=== PATIENT | male | born 1955 | race Caucasian/White ===

== ENCOUNTER → 2016-04-12 | Day surgery (SDC) | payer MEDICAID, MEDICARE ==
--- NOTE | 2016-04-11 13:48 | MH ---
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 He had an open surgery performed at that time and the lesion has recurred. OTHER PAST HISTORY Reveals he had an ablation for atrial fibrillation approximately 5 years ago. He has a history of a heart murmur and history of high blood pressure. MEDICINES Aspirin 325 daily, atenolol 25 mg daily. ALLERGIES He has no known allergies. FAMILY HISTORY His father of a heart attack, mother is living and well. SOCIAL HISTORY He does not use tobacco. He drinks 2-3 glasses of red wine nightly. He sleeps 5-6 hours per night. Does not use drugs. He did not state an occupation. REVIEW OF SYSTEMS HEAD: He reports occasional headaches. No history of dizziness, injury or seizure disorders. EYES: He wears corrective lenses for reading. No double vision, tearing or blind spots. The right eye has an early cataract. NOSE: No history of bleeding, obstruction or discharges. MOUTH: The patient has a mild degree of swelling in the area of the cyst, upper right. THROAT: No history of hoarseness, soreness or thyroid disease, lymph nodes or local general glandular enlargement. RESPIRATORY: No history of tuberculosis, shortness of breath, cough, asthma, COPD or sleep apnea. CARDIOVASCULAR: No history of precordial pain. He has a history of hypertension. He does report a history of a murmur and no shortness of breath on exertion, edema, phlebitis, rheumatic fever, heart surgery ablation 5 years ago for atrial fibrillation. GASTROINTESTINAL: No gallbladder disease, peptic ulcer disease. GENITOURINARY: No urinary tract infections, kidney disease, venereal disease. MUSCULOSKELETAL: No pain, limitation of movement or weakness. ENDOCRINE: No history of diabetes, hormone therapy, growth abnormality. HEMATOLOGICAL: No history of anemia, bleeding tendencies, Rh incompatibility. NEUROLOGICAL: No sensory or motor disturbances, although he has been informed of the possibility of having some trigeminal nerve sensory disturbance after the surgery. PHYSICAL EXAMINATION GENERAL: Reveals an alert, oriented male. VITAL SIGNS: He is 6 feet, 2 inches and weighs 185 pounds. His blood pressure is 136/76, pulse of 71 and regular. His O2 sat on room air is 97%. HEAD: Head is normocephalic. There are no masses noted. EYES: EOMs intact, although early cataract on the right. EARS: TMs intact. MOUTH: Noted swelling in the right maxillary region. The cyst is seen best on CT scan. Throat and tongue elevate normally. NECK: His neck is soft. There are no masses, no lymphadenopathy noted. HEART: Regular sinus rhythm. The heart murmur was not readily appreciated. Peripheral pulses are full and equal throughout. ABDOMEN: Abdomen is soft, no masses or organomegaly present. Bowel sounds are present and peripheral pulses are full and equal throughout. EXTREMITIES: Deep tendon reflexes are symmetric and physiologic. Cranial nerves II-XII intact. Deep tendon reflexes are symmetric. ASSESSMENT The patient is informed of the need for removal of the cyst before it goes into the nose or the sinus and it is very close to these two structures. The patient understands the treatment plan. TARIQ Shaw /12:55 PM /1:25 PM
[~2016-04-12] VITALS: Ht 188 cm; Wt 84.0 kg
[~2016-04-12] MED LIST: ANTICOAGULANT CITRATE DEXTROSE SOLN-A 1L OTHER ONE; ASPI-110 PO; ATEN50TA PO; DEXAMETHASONE SOD PHOS 4 MG/ML VIAL ONE; DO NOT ADM ANY ANTICOAGULANT DRUGS XX PRN; GLYCOPYRROLATE 0.2 MG/ML VIAL IV ONE; GLYCOPYRROLATE 0.2 MG/ML VIAL ONE; INSULIN HUMAN REGULAR 1,000 UNITS/10 ML VIAL SQ PRN; LACTATED RINGER'S 1000 ML IV SCH; LIDOCAINE 2%/EPINEPHrine 1:100,000 30ML MDV OTHER ONE; LORATADINE 10 MG TAB PO SCH; METOPROLOL TARTRATE 25 MG TAB PO PRN; MIDAZOLAM HCL 2 MG/2 ML VIAL ONE; PANT40TA3 PO; PROPOFOL 200 MG/20 ML AMP IV ONE; SODIUM CHLORID 0.9% 500 ML IV SCH; THIA100T PO; THROMBIN (TOPICAL) 5,000 UNIT VIAL OTHER ONE; ceFAZolin 1,000 MG/NS 100 ML IV SCH; ePHEDrine/NS 50 MG/5 ML SYR IV ONE; fentaNYL CITRATE 250 MCG/5 ML AMP ONE
[2016-04-12 12:04] LABS: BASOPHIL # 0.1 TH/MM3 (0-0.2); BASOPHIL % 1.3 % (0.0-2.0); EOSINOPHIL # 0.1 TH/MM3 (0-0.4); EOSINOPHIL % 1.9 % (0.0-4.0); HEMATOCRIT 45.8 % (39.0-51.0); HEMO FLAGS DIFF FINAL; LYMPH % 30.7 % (9.0-44.0); LYMPHOCYTE # 1.2 TH/MM3 (1.0-4.8); MEAN CELL VOLUME 97.4 FL (80.0-100.0); MEAN CORPUSCULAR HEMOGLOBIN 34.1 PG (27.0-34.0); MONO % 16.5 % (0.0-8.0); NEUT % 49.6 % (16.0-70.0); PLATELET COUNT 226 TH/MM3 (150-450); RED CELL DISTRIBUTION WIDTH 13.4 % (11.6-17.2)
[2016-04-12 12:05] VITALS: BP 122/71; PULSE 65; RESP 18; TEMP 98.6; O2SAT 97
[2016-04-12 12:10] LABS: APTT (PATIENT) 27.5 SEC (24.3-30.1); PROTHROMBIN TIME - PATIENT 10.7 SEC (9.8-11.6)
[2016-04-12 12:13] LABS: ALT (GPT) 34 U/L (12-78); ANION GAP 6 MEQ/L (5-15); AST (GOT) 30 U/L (15-37); BICARBONATE 29.9 MEQ/L (21.0-32.0); BLOOD UREA NITROGEN 11 MG/DL (7-18); CHLORIDE 104 MEQ/L (98-107); GLOMERULAR FILTRATION RATE 97 ML/MIN (>89); POTASSIUM 4.1 MEQ/L (3.5-5.1); SODIUM (NA) 140 MEQ/L (136-145)
[2016-04-12 12:16] LABS: ALKALINE PHOSPHATASE 53 U/L (45-117); TOTAL BILIRUBIN ADULT 0.4 MG/DL (0.2-1.0)
--- NOTE | 2016-04-12 12:25 | RADRPT ---
EXAM DATE/TIME: 04/12/2016 11:45 [facility] COMPARISON: CHEST SINGLE AP, February 18, 2015, 10:27. INDICATIONS : Evaluate for pneumonia, pneumothorax and communicable diseases. Pre-op jaw surgery MEDICAL HISTORY : None. SURGICAL HISTORY : Eblation ENCOUNTER: Initial ACUITY: 1 day PAIN SCORE: 0/10 LOCATION: chest FINDINGS: Portable AP view of the chest demonstrates a normal-sized cardiac silhouette. No effusion, consolidat ion, or pneumothorax is visualized. Vertically oriented opacity in the right lower lung zone may repr esent parenchymal scar or atelectasis. The bones and soft tissues demonstrate no acute abnormality. CONCLUSION: No acute cardiopulmonary abnormality is identified. Todd Lr MD on April 12, 2016 at 12:23 Board Certified Radiologist. This report was verified electronically.
[2016-04-12 12:53] LABS: BACTERIA, URINE RARE /hpf; BLOOD, URINE NEG (NEG); COMMENT (UR) CULT NOT INDICATED; CULTURE IF INDICATED CULT NOT INDICATED; GLUCOSE,URINE NEG (NEG); KETONE, URINE NEG (NEG); MUCUS URINE FEW /lpf (OCC); NITRITE,URINE NEG (NEG); PH, URINE 7.5 (5.0-8.5); URINE COLOR YELLOW (YELLW/STRAW)
--- NOTE | 2016-04-12 12:57 | EKG ---
Date Performed: 04/12/2016 Time Performed: 11:49:38 PTAGE: 61 years EKG: SINUS BRADYCARDIA BORDERLINE ECG COMPARED TO PRIOR ELECTROCARDIOGRAM, Prior electrocardiogr am has artifact but Sinus rhythm appears to have replaced atrial fibrillation. PREVIOUS TRACING : 02/20/2015 17.12 DOCTOR: Ramirez Padilla Interpretating Date/Time 04/12/2016 12:56:41
[2016-04-12 17:20] VITALS: BP 130/72; PULSE 72; RESP 18; TEMP 97.6; O2SAT 99
--- NOTE | 2016-04-17 15:52 | MP ---
cc: ANALISA WALKER DDS DATE OF SURGERY: 04/12/2016 PREOPERATIVE DIAGNOSIS Glandular odontogenic cyst of the maxilla. POSTOPERATIVE DIAGNOSIS Glandular odontogenic cyst of the maxilla. OPERATIVE PROCEDURE PERFORMED Excision of glandular odontogenic cyst of the maxilla, reconstruction of the cystic cavity with PRP, BMP, corticocancellous bone and plain collagen. OPERATIVE PROCEDURE The patient was brought to the operating room and placed upon the operating table in supine position. The patient was anesthetized intravenously and intubated with ease via the oral route. A throat pack was placed and approximately 8 cc of 1% Xylocaine, 100,000 epinephrine was infiltrated in the buccal vestibule of the right maxilla. Following this a full-thickness mucoperiosteal incision was made from slightly left of the central incisor all the way back to the second molar at the mucogingival junction on the right-hand side of the maxilla. The periosteal flap was reflected. The biopsy site was identified and a bur on a drill was used to open a window in the lateral wall of the maxilla. There were two discrete cystic areas identified, one in the area of 6, 7 and 8 teeth, and also in the area of 3, 4 and 5 teeth. Once the window was opened the cystic area was identified and removed with the use of a and a curette as well as an acrylic bur on a rotary drill. It is of note that the two discrete areas of cystic cavity once the cyst was removed, communicated with one another. The cavity went from second molar on the right all the way up to tooth #8. The bone overlying the nasal cavity had been compromised as well. Once all the cystic cavity was removed, BMP was placed in the floor of the cystic cavity followed by corticocancellous bone mixed with PRP and Bio-Oss. Intermittently more BMP was added to the bone graft, and finally the cavity was filled with five one ounce bottles of bone. Tooth #4 and 7 were removed prior to the placement of bone graft in order to remove all the cystic remnants in the extraction site. Once this was completed the incision line was closed with running 3-0 chromic suture. The throat pack was removed and the patient was taken to the recovery room in good condition. TARIQ Shaw /3:25 PM /3:36 PM
== END | disposition home or self-care (01) ==
LOC: HSDC 10:58
PROVIDERS: ATTEND Dentist Oral and Maxillofacial Surgery
DX: K09.0 Developmental odontogenic cysts (principal); I48.91 Unspecified atrial fibrillation
CPT/HCPCS: 00190; 21040; 41899; 71010; 80053; 81001; 85025; 85610; 85730; 88300; 88305; 88311; 93005; C1713; J0690; J1100; J2250; J3010; J7120

== ENCOUNTER 2017-06-16 11:45 | Inpatient (IN) | payer MEDICARE ==
[2017-06-16] VITALS (7 sets, daily range): BP systolic 107–137; BP diastolic 55–86; PULSE 85–130; RESP 14–18; TEMP 97.5–98.9; O2SAT 94–98
[~2017-06-16] VITALS: Ht 188 cm; Wt 83.6 kg
[~2017-06-16 11:45] MED LIST changes: -ANTICOAGULANT CITRATE DEXTROSE SOLN-A 1L OTHER ONE; -ASPI-110 PO; +ASPI1TAB57 PO; -DEXAMETHASONE SOD PHOS 4 MG/ML VIAL ONE; -DO NOT ADM ANY ANTICOAGULANT DRUGS XX PRN; -GLYCOPYRROLATE 0.2 MG/ML VIAL IV ONE; -GLYCOPYRROLATE 0.2 MG/ML VIAL ONE; -INSULIN HUMAN REGULAR 1,000 UNITS/10 ML VIAL SQ PRN; -LACTATED RINGER'S 1000 ML IV SCH; -LIDOCAINE 2%/EPINEPHrine 1:100,000 30ML MDV OTHER ONE; -LORATADINE 10 MG TAB PO SCH; -METOPROLOL TARTRATE 25 MG TAB PO PRN; -MIDAZOLAM HCL 2 MG/2 ML VIAL ONE; -PANT40TA3 PO; -PROPOFOL 200 MG/20 ML AMP IV ONE; -SODIUM CHLORID 0.9% 500 ML IV SCH; -THIA100T PO; -THROMBIN (TOPICAL) 5,000 UNIT VIAL OTHER ONE; -ceFAZolin 1,000 MG/NS 100 ML IV SCH; -ePHEDrine/NS 50 MG/5 ML SYR IV ONE; -fentaNYL CITRATE 250 MCG/5 ML AMP ONE
[2017-06-16] MEDS ORDERED: SODIUM CHLOR 0.9% 1000 ML INJ 1,000 ML IV ONE ×2 (11:57→13:45)
[2017-06-16] MEDS ORDERED: SODIUM CHLORIDE 0.9% FLUSH 10 ML FLUSH IVF PRN (12:00)
--- NOTE | 2017-06-16 12:10 | PD ---
HPI Chief Complaint: Syncope/Near-Syncope Time Seen by Provider: 11:56 Travel History International Travel<30 days: No Contact w/Intl Traveler<30days: No Traveled to known affect area: No History of Present Illness HPI Patient is a 62-year-old male presenting to the emergency department for evaluation after witnessed syncopal episode. Patient was walking home from the grocery store and bystanders witnessed him staggering he subsequently fell in the call 911. When EMS arrived on scene patient was diaphoretic and had a second syncopal episode that they witnessed. Patient was in A. fib with RVR with a rate in the 160s, EMS administered 20 mg of Cardizem IV, his rate trended down, it stayed between 76 up to 110. Patient states he felt dizzy prior to the episode but denied any chest pain, shortness of breath, headache. He currently denies any chest pain, shortness of breath, abdominal pain, nausea , vomiting. He does admit to drinking 6-7 shots of alcohol daily. Patient states that he did drink this morning, he cannot recall how much he has had to drink. He states he has a history of atrial fibrillation, he had an ablation 4 years ago. He has not followed up with cardiology recently. He is followed by Dr. Weems for primary care. Patient reports that he felt fine prior to this episode. Symptom onset was sudden, symptom severity is severe, there are no alleviating factors, symptoms possibly exacerbated by EtOH. Patient is unsure if he took atenolol and aspirin this morning. Patient reported that he falls frequently, he states he fell and hit his head yesterday. He is uncertain if he blacked out. He currently denies any pain. PFSH Past Medical History Atrial Fibrillation: Yes Endocrine: No Genitourinary: No Hepatitis: No Hiatal Hernia: No Immune Disorder: No Musculoskeletal: No Neurologic: No Psychiatric: No Respiratory: No Thyroid Disease: No Tetanus Vaccination: Unknown Influenza Vaccination: No Past Surgical History Cardiac Surgery: Yes (HEART ABLATION) Social History Alcohol Use: Yes (6 - 7 SHOTS PER DAY) Tobacco Use: No Substance Use: No Allergies-Medications (Allergen,Severity, Reaction): Coded Allergies: No Known Allergies (Unverified Adverse Reaction, Unknown, 06/16/17) Reported Meds & Prescriptions Reported Meds & Active Scripts Active Reported Aspirin 81 (Aspirin) 81 Mg Tabdr 81 Mg PO DAILY Atenolol 50 Mg Tab 50 Mg PO DAILY Review of Systems ROS Limitations: Intoxication Except as stated in HPI: all other systems reviewed are Neg HENT: No: Headaches Cardiovascular: No: Chest Pain or Discomfort Respiratory: No: Shortness of Breath Gastrointestinal: No: Nausea, Abdominal Pain Neurologic: Positive: Dizziness, Syncope, Coordination Problem, No: Focal Abnormalities Psychiatric: Positive: Substance Abuse, No: Depression, Suicidal Ideations Physical Exam Narrative GENERAL: Thin, well-developed, alert, male. Presenting in no acute distress. SKIN: Warm and dry. Healing abrasions to his knees. Superficial abrasion to left tricep. HEAD: Atraumatic. Normocephalic. EYES: Pupils equal and round. No scleral icterus. No injection or drainage. ENT: No nasal bleeding or discharge. Mucous membranes pink and moist. NECK: Trachea midline. No JVD. CARDIOVASCULAR: Irregularly irregular, tachycardic RESPIRATORY: No accessory muscle use. Clear to auscultation. Breath sounds equal bilaterally. GASTROINTESTINAL: Abdomen soft, non-tender, nondistended. Hepatic and splenic margins not palpable. MUSCULOSKELETAL: Extremities without clubbing, cyanosis, or edema. No obvious deformities. NEUROLOGICAL: Awake and alert. No obvious cranial nerve deficits. Motor grossly within normal limits. Five out of 5 muscle strength in the arms and legs. Normal speech. PSYCHIATRIC: Appropriate mood and affect; insight and judgment normal. Data Data Last Documented VS Vital Signs Date Time Temp Pulse Resp B/P (MAP) Pulse Ox O2 Delivery O2 Flow Rate FiO2 06/16/17 14:05 85 14 107/65 (79) 95 Room Air 06/16/17 11:50 98.9 Orders Orders Electrocardiogram (06/16/17 11:57) Complete Blood Count With Diff (06/16/17 11:57) Comprehensive Metabolic Panel (06/16/17 11:57) Magnesium (Mg) (06/16/17 11:57) B-Type Natriuretic Peptide (06/16/17 11:57) Ckmb (Isoenzyme) Profile (06/16/17 11:57) Troponin I (06/16/17 11:57) Act Partial Throm Time (Ptt) (06/16/17 11:57) Prothrombin Time / Inr (Pt) (06/16/17 11:57) Urinalysis - C+S If Indicated (06/16/17 11:57) Chest, Single Ap (06/16/17 11:57) Ct Brain W/O Iv Contrast(Rout) (06/16/17 11:57) Ecg Monitoring (06/16/17 11:57) Iv Access Insert/Monitor (06/16/17 11:57) Oximetry (06/16/17 11:57) Sodium Chloride 0.9% Flush (Ns Flush) (06/16/17 12:00) Sodium Chlor 0.9% 1000 Ml Inj (Ns 1000 M (06/16/17 11:57) Alcohol (Ethanol) (06/16/17 11:57) Thyroid Stimulating Hormone (06/16/17 11:57) Free Thyroxine (T4) (06/16/17 11:57) Diltiazem Inj (Cardizem Inj) (06/16/17 12:15) Lorazepam Inj (Ativan Inj) (06/16/17 13:15) Ondansetron Inj (Zofran Inj) (06/16/17 13:15) CKMB (06/16/17 12:12) CKMB% (06/16/17 12:12) Sodium Chlor 0.9% 1000 Ml Inj (Ns 1000 M (06/16/17 13:45) Admit Order (Ed Use Only) (06/16/17 14:27) Labs Laboratory Tests Test 06/16/17 12:12 06/16/17 13:30 Blood Urea Nitrogen 16 MG/DL Creatinine 1.13 MG/DL Random Glucose 112 MG/DL Total Protein 8.3 GM/DL Albumin 4.5 GM/DL Calcium Level 8.8 MG/DL Magnesium Level 2.1 MG/DL Alkaline Phosphatase 79 U/L Aspartate Amino Transf (AST/SGOT) 216 U/L Alanine Aminotransferase (ALT/SGPT) 112 U/L Total Bilirubin 1.3 MG/DL Sodium Level 137 MEQ/L Potassium Level 3.7 MEQ/L Chloride Level 98 MEQ/L Carbon Dioxide Level 24.6 MEQ/L Anion Gap 14 MEQ/L Estimat Glomerular Filtration Rate 66 ML/MIN Total Creatine Kinase 779 U/L Creatine Kinase MB 3.9 NG/ML Creatine Kinase MB % 0.5 % Troponin I LESS THAN 0.02 NG/ML B-Type Natriuretic Peptide 21 PG/ML Free Thyroxine 0.99 NG/DL Thyroid Stimulating Hormone 3rd Gen 3.760 uIU/ML Ethyl Alcohol Level 317 MG/DL White Blood Count 4.6 TH/MM3 Red Blood Count 4.12 MIL/MM3 Hemoglobin 14.4 GM/DL Hematocrit 42.0 % Mean Corpuscular Volume 101.8 FL Mean Corpuscular Hemoglobin 34.8 PG Mean Corpuscular Hemoglobin Concent 34.2 % Red Cell Distribution Width 14.4 % Platelet Count 81 TH/MM3 Mean Platelet Volume 8.4 FL Neutrophils (%) (Auto) 76.1 % Lymphocytes (%) (Auto) 9.1 % Monocytes (%) (Auto) 13.6 % Eosinophils (%) (Auto) 0.0 % Basophils (%) (Auto) 1.2 % Neutrophils # (Auto) 3.5 TH/MM3 Lymphocytes # (Auto) 0.4 TH/MM3 Monocytes # (Auto) 0.6 TH/MM3 Eosinophils # (Auto) 0.0 TH/MM3 Basophils # (Auto) 0.1 TH/MM3 CBC Comment AUTO DIFF Differential Comment AUTO DIFF CONFIRMED Platelet Estimate LOW Platelet Morphology Comment NORMAL Ovalocytes 1+ Prothrombin Time 10.3 SEC Prothromb Time International Ratio 1.0 RATIO Activated Partial Thromboplast Time 23.6 SEC MDM Medical Decision Making Medical Screen Exam Complete: Yes Emergency Medical Condition: Yes Interpretation(s) Vital Signs Date Time Temp Pulse Resp B/P (MAP) Pulse Ox O2 Delivery O2 Flow Rate FiO2 06/16/17 11:50 98.9 109 16 125/85 (98) 97 Differential Diagnosis Cardiac arrhythmia versus metabolic abnormality versus contusion versus hemorrhage versus thyroid abnormality versus EtOH abuse versus other Narrative Course Patient is well-appearing 62-year-old male presenting to emergency department after witnessed syncopal episode. Patient's vital signs are stable, his heart rate ranges between 108 to 122 currently. Labs and imaging ordered and pending. A second dose of Cardizem [address] scan of the brain was ordered secondary to patient's report of fall yesterday with head injury, CT shows 1 cm hypodensity in the central yue which may be an old lacunar infarct. This could be further is characterized with MRI if clinically indicated. The supratentorial brain is symmetric and unremarkable. There is no evidence of hemorrhage. Nothing to suggest acute infarct per the radiologist. 1300 -patient reassessed, he was exhibiting tremors, reported nausea and stated he felt as if he was withdrawing. Ativan and Zofran ordered. RN notified. CBC with a platelet count of 81 Chemistry with mild transaminitis, CK 779, TSH and free T4 unremarkable, BNP is 21. Alcohol level is 317 Patient is received a total of 2 L of IV fluids in the emergency department. He was reassessed after administration of Ativan and is resting comfortably. Patient will be admitted for syncope, EtOH abuse, A. fib with RVR. Discussed with residents who accepted admission for Dr. Ortez. Admit orders placed. Diagnosis Primary Impression: Atrial fibrillation with RVR Additional Impressions: Alcohol abuse Thrombocytopenia Transaminitis Admitting Information Admitting Physician Requests: Admit Condition: Stable Samia Ac Jun 16, 2017 12:10
[2017-06-16] MEDS ORDERED: DILTIAZEM HCL 25 MG/5 ML VIAL IV ONE (12:15)
--- NOTE | 2017-06-16 12:38 | RADRPT ---
EXAM DATE/TIME: 06/16/2017 12:18 [facility] COMPARISON: CT BRAIN W/O CONTRAST, February 16, 2015, 7:48. INDICATIONS : Syncopal episode today. RADIATION DOSE: 38.25 CTDIvol (mGy) MEDICAL HISTORY : AFIB SURGICAL HISTORY : Cardiac Ablation ENCOUNTER: Initial ACUITY: 1 day PAIN SCALE: 0/10 LOCATION: cranial TECHNIQUE: Multiple contiguous axial images were obtained of the head. Using automated exposure control and adj ustment of the mA and/or kV according to patient size, radiation dose was kept as low as reasonably a chievable to obtain optimal diagnostic quality images. DICOM format image data is available electro nically for review and comparison. FINDINGS: There is a CSF density centrally within the yue which may be encephalomalacia associated with old la cunar infarct. It has a fairly benign appearance without surrounding signal abnormality or definite m ass effect. The supratentorial brain is symmetric and unremarkable. There is no evidence of hemorrhage. As nothin g to suggest acute infarction. CONCLUSION: 1 cm hypodensity in the central yue which may be an old lacunar infarct. This could be further characterized with MRI if clinically indicated.. Todd Verde MD on June 16, 2017 at 12:32 Board Certified Radiologist. This report was verified electronically.
--- NOTE | 2017-06-16 13:07 | RADRPT ---
EXAM DATE/TIME: 06/16/2017 12:43 [facility] COMPARISON: CHEST SINGLE AP, April 12, 2016, 11:45. INDICATIONS : Syncope, short of breath. MEDICAL HISTORY : Myocardial infarction. SURGICAL HISTORY : Coronary artery stent. ENCOUNTER: Initial ACUITY: 1 day PAIN SCORE: 5/10 LOCATION: Bilateral chest FINDINGS: A single view of the chest demonstrates the lungs to be symmetrically aerated without evidence of mas s, infiltrate or effusion. Mild scarring is again noted the right lung base. The cardiomediastinal co ntours are unremarkable. Osseous structures are intact. CONCLUSION: No acute disease. Mild scarring is again noted the right lung base. Carlito Head MD on June 16, 2017 at 13:05 Board Certified Radiologist. This report was verified electronically.
--- NOTE | 2017-06-16 13:11 | PD ---
Physical Exam Date Seen by Provider: Jun 16, 2017 Narrative This patient was brought to us by [facility] after being found stumbling around in the streets. He reportedly had 2 syncopal events prior to arrival. He also had atrial fibrillation with a rapid ventricular response which was treated per EMS with Cardizem. Data Data Last Documented VS Vital Signs Date Time Temp Pulse Resp B/P (MAP) Pulse Ox O2 Delivery O2 Flow Rate FiO2 06/16/17 12:49 111 16 137/67 (90) 98 Room Air 06/16/17 11:50 98.9 Orders Orders Electrocardiogram (06/16/17 11:57) Complete Blood Count With Diff (06/16/17 11:57) Comprehensive Metabolic Panel (06/16/17 11:57) Magnesium (Mg) (06/16/17 11:57) B-Type Natriuretic Peptide (06/16/17 11:57) Ckmb (Isoenzyme) Profile (06/16/17 11:57) Troponin I (06/16/17 11:57) Act Partial Throm Time (Ptt) (06/16/17 11:57) Prothrombin Time / Inr (Pt) (06/16/17 11:57) Urinalysis - C+S If Indicated (06/16/17 11:57) Chest, Single Ap (06/16/17 11:57) Ct Brain W/O Iv Contrast(Rout) (06/16/17 11:57) Ecg Monitoring (06/16/17 11:57) Iv Access Insert/Monitor (06/16/17 11:57) Oximetry (06/16/17 11:57) Sodium Chloride 0.9% Flush (Ns Flush) (06/16/17 12:00) Sodium Chlor 0.9% 1000 Ml Inj (Ns 1000 M (06/16/17 11:57) Alcohol (Ethanol) (06/16/17 11:57) Thyroid Stimulating Hormone (06/16/17 11:57) Free Thyroxine (T4) (06/16/17 11:57) Diltiazem Inj (Cardizem Inj) (06/16/17 12:15) Lorazepam Inj (Ativan Inj) (06/16/17 13:15) Ondansetron Inj (Zofran Inj) (06/16/17 13:15) Labs Laboratory Tests Test 06/16/17 12:12 [facility] Supervised Visit with MANUEL: Yes Interpretation(s) EKG showed atrial fibrillation with a ventricular rate of around 100. Narrative Course I, Dr. Florian, have reviewed the advance practice practitioner's documentation and am in agreement, met with the patient face to face, made the diagnosis, and the medical decision making was done by me. *My assessment and Findings: Patient was sound asleep when I went to see him. He did have a controlled ventricular rate at about 98 200. Please see Samia Inman NP's note for results of laboratory and radiographic evaluation, ED course, final diagnosis and disposition Anne Marie Florian MD Jun 16, 2017 13:11
[2017-06-16] MEDS ORDERED: LORazepam 2 MG/ML VIAL IV PUSH ONE (13:15)
[2017-06-16] MEDS ORDERED: ONDANSETRON HCL 4 MG/2 ML VIAL IV PUSH ONE (13:15)
[2017-06-16 13:18] LABS: ALBUMIN 4.5 GM/DL (3.4-5.0); AST (GOT) 216 U/L (15-37); BICARBONATE 24.6 MEQ/L (21.0-32.0); BLOOD UREA NITROGEN 16 MG/DL (7-18); CALCIUM 8.8 MG/DL (8.5-10.1); CHLORIDE 98 MEQ/L (98-107); CREATININE 1.13 MG/DL (0.60-1.30); GLOMERULAR FILTRATION RATE 66 ML/MIN (>89); GLUCOSE,RANDOM 112 MG/DL (74-106); MAGNESIUM 2.1 MG/DL (1.5-2.5); SODIUM (NA) 137 MEQ/L (136-145)
[2017-06-16 13:27] LABS: ALKALINE PHOSPHATASE 79 U/L (45-117); ALT (GPT) 112 U/L (12-78); FREE T4 0.99 NG/DL (0.76-1.46); TOTAL BILIRUBIN ADULT 1.3 MG/DL (0.2-1.0); TOTAL PROTEIN 8.3 GM/DL (6.4-8.2); TROPONIN I LESS THAN 0.02 NG/ML (0.02-0.05)
[2017-06-16 13:54] LABS: AUTOMATED NEUTROPHIL # 3.5 TH/MM3 (1.8-7.7); BASOPHIL # 0.1 TH/MM3 (0-0.2); BASOPHIL % 1.2 % (0.0-2.0); HEMOGLOBIN 14.4 GM/DL (13.0-17.0); LYMPH % 9.1 % (9.0-44.0); LYMPHOCYTE # 0.4 TH/MM3 (1.0-4.8); MEAN CELL VOLUME 101.8 FL (80.0-100.0); MEAN CORPUSCULAR HEMOGLOBIN 34.8 PG (27.0-34.0); MEAN CORPUSCULAR HGB CONC 34.2 % (32.0-36.0); MEAN PLATELET VOLUME 8.4 FL (7.0-11.0); MONO % 13.6 % (0.0-8.0); MONOCYTE # 0.6 TH/MM3 (0-0.9); NEUT % 76.1 % (16.0-70.0); PLATELET COUNT 81 TH/MM3 (150-450); RED BLOOD COUNT 4.12 MIL/MM3 (4.50-5.90); RED CELL DISTRIBUTION WIDTH 14.4 % (11.6-17.2); WHITE BLOOD COUNT 4.6 TH/MM3 (4.0-11.0)
[2017-06-16 13:57] LABS: PROTHROMBIN TIME - PATIENT 10.3 SEC (9.8-11.6)
[2017-06-16 14:24] LABS: OVALOCYTES 1+ (NORMAL)
--- NOTE | 2017-06-16 14:29 | HHI.HP ---
[facility] Service Family Medicine Primary Care Physician Chelsea Weems M.D. Admission Diagnosis SYNCOPE, AFIB W. RVR, ETOH ABUSE Diagnoses: International Travel<30 Days: No Contact w/Intl Traveler<30days: No Known Affected Area: No History of Present Illness Patient is a 62 y/o M w/a PMH of afib controlled on atenolol admitted for syncopal episodes. Patient states that earlier this morning, he had drank alcohol and went to get groceries. Was walking to his car with groceries and started feeling "off- balance" and fell. Denies tripping. No prodromal symptoms before fall, but patient states that once he fell, he was very weak and dizzy. He was unable to get up. States that he stay down for around 20 minutes. States that the rather people around watching him and called the [facility]. No one witnessed him with seizure-like activity. Patient denies tongue biting or urinary incontinence. 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 Per ER report, it was noted that patient went into A. fib with RVR. Was given Cardizem 20 mg 1, later followed by a dose of Cardizem 50 mg 1 when he remained tachycardic. On interview, patient denies palpitations or focal weakness, no recent bleeding. Patient hit his head. CT and the EGD was performed, shows no acute pathology. Patient states that he has no history of orthostatic hypotension, lightheadedness or syncope with coughing or micturition. No history of syncope in the past. States that he usually drinks all day, will usually drink 6-10 shots of vodka. Does not regularly follow up with a stereotype molder for his A. fib. Was diagnosed about 5 years ago and underwent cardiac ablation. Since then , patient has been taking atenolol 50 mg. Patient was last hospitalized in 2015 for syncope, atrial fibrillation with RVR, rhabdomyolysis, and alcohol intoxication. He was admitted on a [place] act after his family accused him of aggressive behavior. Was discharged on Lopressor 50 mg twice a day. Patient states that this was changed to atenolol recently. (Rae Bello MD R1) Review of Systems Constitutional: DENIES: Diaphoretic episodes, Change in appetite Endocrine: DENIES: Polydipsia, Polyuria Eyes: DENIES: Diplopia, Vision loss Ears, nose, mouth, throat: DENIES: Hearing loss, Nasal discharge, Throat pain Respiratory: DENIES: Cough, Hemoptysis, Shortness of breath Cardiovascular: DENIES: Chest pain, Lower Extremity Edema Gastrointestinal: DENIES: Black stools, Bloody stools, Constipation Genitourinary: DENIES: Urinary frequency, Urinary incontinence Musculoskeletal: DENIES: Muscle aches, Stiffness Integumentary: DENIES: Abnormal pigmentation Hematologic/lymphatic: DENIES: Bruising Immunologic/allergic: DENIES: Eczema Neurologic: COMPLAINS OF: Poor Balance, DENIES: Paresthesias, Tremor Psychiatric: DENIES: Anxiety, Depression (Rae Bello MD R1) Past Family Social History Past Medical History Atrial fibrillation-controlled on atenolol Past Surgical History Cardiac ablation-5 years ago (Rae Bello MD R1) Allergies: Coded Allergies: No Known Allergies (Unverified Allergy, Unknown, 06/16/17) Family History Mom: No significant past medical history Dad: No significant past medical history Social History Lives alone. Drinks 6-10 shots of vodka daily No smoking hx No recreational or illict drug use (Rae Bello MD R1) Physical Exam Vital Signs Vital Signs Date Time Temp Pulse Resp B/P (MAP) Pulse Ox O2 Delivery O2 Flow Rate FiO2 06/16/17 14:05 85 14 107/65 (79) 95 Room Air 06/16/17 12:49 111 16 137/67 (90) 98 Room Air 06/16/17 11:50 98.9 109 16 125/85 (98) 97 Physical Exam GENERAL: This is a elderly man laying quietly in bed, occasionally starts giggling SKIN: Cool and dry. Slight superficial abrasions on the left forehead, knees, lower legs, and arms HEAD: Atraumatic. Normocephalic. EYES: Extraocular motions intact. No scleral icterus. No injection or drainage. ENT: Airway patent. NECK: Trachea midline. CARDIOVASCULAR: Irregular rate and rhythm without murmurs, gallops, or rubs. RESPIRATORY: Clear to auscultation. GASTROINTESTINAL: Abdomen soft,non-distended. Patient states he is tender, attributed to alcohol MUSCULOSKELETAL: Extremities without clubbing, cyanosis, or edema. NEUROLOGICAL: Awake and alert. Cranial nerves II through XII intact. Motor and sensory grossly within normal limits. 4/5 strength in the lower extremities. Normal speech. No deficits w/cerebellar testing ([id number], [id number]). Reflexes in lower and upper extremities 1+. Patient states he is unable to get up, feels lightheaded. Laboratory Laboratory Tests Test 06/16/17 12:12 06/16/17 13:30 Blood Urea Nitrogen 16 Creatinine 1.13 Random Glucose 112 Total Protein 8.3 Albumin 4.5 Calcium Level 8.8 Magnesium Level 2.1 Alkaline Phosphatase 79 Aspartate Amino Transf (AST/SGOT) 216 Alanine Aminotransferase (ALT/SGPT) 112 Total Bilirubin 1.3 Sodium Level 137 Potassium Level 3.7 Chloride Level 98 Carbon Dioxide Level 24.6 Anion Gap 14 Estimat Glomerular Filtration Rate 66 Total Creatine Kinase 779 Creatine Kinase MB 3.9 Creatine Kinase MB % 0.5 Troponin I LESS THAN 0.02 B-Type Natriuretic Peptide 21 Free Thyroxine 0.99 Thyroid Stimulating Hormone 3rd Gen 3.760 Ethyl Alcohol Level 317 White Blood Count 4.6 Red Blood Count 4.12 Hemoglobin 14.4 Hematocrit 42.0 Mean Corpuscular Volume 101.8 Mean Corpuscular Hemoglobin 34.8 Mean Corpuscular Hemoglobin Concent 34.2 Red Cell Distribution Width 14.4 Platelet Count 81 Mean Platelet Volume 8.4 Neutrophils (%) (Auto) 76.1 Lymphocytes (%) (Auto) 9.1 Monocytes (%) (Auto) 13.6 Eosinophils (%) (Auto) 0.0 Basophils (%) (Auto) 1.2 Neutrophils # (Auto) 3.5 Lymphocytes # (Auto) 0.4 Monocytes # (Auto) 0.6 Eosinophils # (Auto) 0.0 Basophils # (Auto) 0.1 CBC Comment AUTO DIFF Differential Comment AUTO DIFF CONFIRMED Platelet Estimate LOW Platelet Morphology Comment NORMAL Ovalocytes 1+ Prothrombin Time 10.3 Prothromb Time International Ratio 1.0 Activated Partial Thromboplast Time 23.6 (Rae Bello MD R1) Result Diagram: 06/16/17 1330 06/16/17 1212 Imaging Last Impressions Head CT 06/16/17 1157 Signed Impressions: Service Date/Time: Friday, June 16, 2017 12:18 - CONCLUSION: 1 cm hypodensity in the central yue which may be an old lacunar infarct. This could be further characterized with MRI if clinically indicated.. Todd Verde MD Chest X-Ray 06/16/17 8236 Signed Impressions: Service Date/Time: Friday, June 16, 2017 12:43 - CONCLUSION: No acute disease. Mild scarring is again noted the right lung base. Carlito Head MD (AbiRae han MD R1) Caprini VTE Risk Assessment Caprini VTE Risk Assessment: Mod/High Risk (score >= 2) Caprini Risk Assessment Model Point Value = 1 Point Value = 2 Point Value = 3 Point Value = 5 Age 41-60 Minor surgery BMI > 25 kg/m2 Swollen legs Varicose veins or History of unexplained or recurrent spontaneous Oral contraceptives or hormone replacement Sepsis (< 1 month) Serious lung disease, including pneumonia (< 1 month) Abnormal pulmonary function Acute myocardial infarction Congestive heart failure (< 1 month) History of inflammatory bowel disease Medical patient at bed rest Age 61-74 Arthroscopic surgery Major open surgery (> 45 min) Laparoscopic surgery (> 45 min) Malignancy Confined to bed (> 72 hours) Immobilizing plaster cast Central venous access Age >= 75 History of VTE Family history of VTE Factor V Leiden Prothrombin [id number] Lupus anticoagulant Anticardiolipin antibodies Elevated serum homocysteine Heparin-induced thrombocytopenia Other congenital or acquired thrombophilia Stroke (< 1 month) Elective arthroplasty Hip, pelvis, or leg fracture Acute spinal cord injury (< 1 month) Prophylaxis Regimen Total Risk Factor Score Risk Level Prophylaxis Regimen 0-1 Low Early ambulation 2 Moderate Order ONE of the following: *Sequential Compression Device (SCD) *Heparin 5000 units SQ BID 3-4 Higher Order ONE of the following medications: *Heparin 5000 units SQ TID *Enoxaparin/Lovenox 40 mg SQ daily (WT < 150 kg, CrCl > 30 mL/min) *Enoxaparin/Lovenox 30 mg SQ daily (WT < 150 kg, CrCl > 10-29 mL/min) *Enoxaparin/Lovenox 30 mg SQ BID (WT < 150 kg, CrCl > 30 mL/min) AND/OR *Sequential Compression Device (SCD) 5 or more Highest Order ONE of the following medications: *Heparin 5000 units SQ TID (Preferred with Epidurals) *Enoxaparin/Lovenox 40 mg SQ daily (WT < 150 kg, CrCl > 30 mL/min) *Enoxaparin/Lovenox 30 mg SQ daily (WT < 150 kg, CrCl > 10-29 mL/min) *Enoxaparin/Lovenox 30 mg SQ BID (WT < 150 kg, CrCl > 30 mL/min) AND *Sequential Compression Device (SCD) (Rae Bello MD R1) Assessment and Plan Assessment and Plan Patient is a 62-year-old male with a past medical history of A. fib admitted for syncope and recurrent Afib w/RVR (past hospitalization was in 2014). On admission, patient was tachycardic and found to be in A. fib with RVR. Was given 20 mg of Cardizem 1 in [facility] and 50 mg Cardizem in the ER. Rate is now at 85. On auscultation, is irregular. Patient is found to be intoxicated with an ethyl alcohol level at 317. History of previous admission related to syncope. Patient doesn't currently fit the picture of vasovagal syncope, situational syncope, orthostatic syncope; symptoms more in line with arrhythmia related syncope versus neurologic related syncope. Patient states that he does not remember if he took his medications this morning; in addition, patient may have been and heavily intoxicated. Electrolytes do not show significant disturbance other than elevated CK and transaminitis. Patient has a leukocytopenia and thrombocytopenia likely secondary to alcoholism. Will monitor w/cardiac tele overnight, start CIWA protocol,IVF hydration, order cardiac echo. Low CHADSVASC score, does not require anticoagulation. At risk for bleed 2/2 to alcohol abuse hx. Code Status FULL Discussed Condition With Dr. Sharif and Dr. Freed (Rae Bello MD R1) Attending Attestation THIS CASE WAS DISCUSSED WITH THE RESIDENT PHYSICIANS. I HAVE REVIEWED THE RECORD AND AGREE WITH THE ABOVE NOTE AND PLAN OF CARE WAS DISCUSSED. I HAVE AUTHORIZED THE ORDER FOR ADMISSION TO AN IN-PATIENT STATUS. PATIENT WAS SEEN AND EXAMINED WITH THE RESIDENT ON 06/16/2017 AND THIS NOTE REFLECTS MY EXAM AND A /P. THIS IS LATE ENTRY ON 06/17/2017 (Bobbi Sharif MD) Problem List: (1) Syncope ICD Codes: R55 - Syncope and collapse Plan: CT brain non-acute findings Afib on EKG Likely secondary to alcohol intoxication in addition to poor medication compliance Rate now currently controlled Con't rate control w/ metoprolol 25 mg BID IVF hydration Echo cardiac tele neurochecks Q4H bed rest (2) Atrial fibrillation with RVR ICD Codes: I48.91 - Unspecified atrial fibrillation Status: Acute Plan: See above Will need follow-up w/cardiology after d/c (3) Transaminitis ICD Codes: R74.0 - Nonspecific elevation of levels of transaminase and lactic acid dehydrogenase [LDH] Status: Acute Plan: 2/2 alcohol intoxication IVF @ maintenance (4) Thrombocytopenia ICD Codes: D69.6 - Thrombocytopenia, unspecified Status: Acute Plan: Likely 2/2 chronic alcohol abuse No active bleeding at this time Monitor CBC daily (5) Alcohol abuse ICD Codes: F10.10 - Alcohol abuse, uncomplicated Status: Acute Plan: CIWA protocol Rally pack Counseling on alcohol cessation (6) FEN Plan: Fluids: maintenance Electrolytes: not indicated Nutrition: regular diet DVT prophy: SCDs, Lovanox-renally dosed (Rae Bello MD R1) Physician Certification 2 Midnight Certification Type: Admission for Inpatient Services Order for Inpatient Services The services are ordered in accordance with Medicare regulations or non- Medicare payer requirements, as applicable. In the case of services not specified as inpatient-only, they are appropriately provided as inpatient services in accordance with the 2-midnight benchmark. Estimated LOS (days): 2 2 days is the estimated time the patient will need to remain in the hospital, assuming treatment plan goals are met and no additional complications. Post-Hospital Plan: Home (Rae Bello MD R1) 2 Midnight Certification Type: Admission for Inpatient Services Post-Hospital Plan: Not yet determined (Bobbi Sharif MD) Rae Bello MD R1 Jun 16, 2017 14:29 Bobbi Sharif MD Jun 17, 2017 12:41
[2017-06-16] MEDS ORDERED: LORazepam 2 MG/ML VIAL IV PUSH PRN (15:00)
[2017-06-16] MEDS ORDERED: FLUMAZENIL 0.5 MG/5 ML VIAL IV PUSH PRN (15:00)
[2017-06-16] MEDS ORDERED: SODIUM CHLORIDE 0.9% FLUSH 10 ML FLUSH IV FLUSH PRN (15:00)
[2017-06-16] MEDS ORDERED: ONDANSETRON HCL 4 MG/2 ML VIAL IV PUSH PRN (15:45)
[2017-06-16] MEDS: ENOXAPARIN SODIUM 40 MG/0.4 ML SYRINGE SQ SCH (16:16)
[2017-06-16] MEDS: FOLIC ACID 1 MG TAB PO SCH (16:16)
[2017-06-16] MEDS: MULTIVITAMINS/MINERALS THERAPEUTIC TAB PO SCH (16:16)
[2017-06-16] MEDS: LORazepam 2 MG/ML VIAL IV PUSH PRN (16:16)
[2017-06-16] MEDS: THIAMINE HCL 100 MG TAB PO SCH (16:16)
[2017-06-16] MEDS: SODIUM CHLOR 0.9% 1000 ML INJ 1,000 ML IV SCH (16:17)
[2017-06-16 16:35] LABS: BILIRUBIN, URINE NEG (NEG); BLOOD, URINE SMALL (NEG); GLUCOSE,URINE NEG (NEG); HYALINE CAST, URINE 16 /lpf (RARE); KETONE, URINE 40 mg/dL (NEG); MUCUS URINE FEW /lpf (OCC); NITRITE,URINE NEG (NEG); PH, URINE 6.5 (5.0-8.5); URINE COLOR YELLOW (YELLW/STRAW); URINE LEUKOCYTE ESTERASE NEG (NEG)
[2017-06-16] MEDS: METOPROLOL TARTRATE 25 MG TAB PO SCH ×2 (18:02→22:42)
[2017-06-16] MEDS ORDERED: METOPROLOL TARTRATE 25 MG TAB PO SCH (20:00)
[2017-06-16] MEDS: SODIUM CHLORIDE 0.9% FLUSH 10 ML FLUSH IV FLUSH SCH (21:00)
[2017-06-17] VITALS (10 sets, daily range): BP systolic 127–146; BP diastolic 73–90; PULSE 70–101; RESP 17–20; TEMP 97.8–98.7; O2SAT 93–97
[2017-06-17] MEDS: LORazepam 2 MG TAB PO PRN ×3 (00:40→20:12)
[2017-06-17] MEDS: SODIUM CHLOR 0.9% 1000 ML INJ 1,000 ML IV SCH ×3 (00:49→14:39)
[2017-06-17] MEDS: LORazepam 2 MG/ML VIAL IV PUSH PRN ×5 (06:11→17:52)
[2017-06-17 06:39] LABS: AUTOMATED NEUTROPHIL # 2.3 TH/MM3 (1.8-7.7); BASOPHIL % 1.2 % (0.0-2.0); HEMATOCRIT 39.2 % (39.0-51.0); HEMOGLOBIN 13.3 GM/DL (13.0-17.0); LYMPH % 11.5 % (9.0-44.0); LYMPHOCYTE # 0.4 TH/MM3 (1.0-4.8); MEAN CELL VOLUME 102.5 FL (80.0-100.0); MEAN CORPUSCULAR HEMOGLOBIN 34.8 PG (27.0-34.0); MEAN CORPUSCULAR HGB CONC 33.9 % (32.0-36.0); MONO % 16.2 % (0.0-8.0); MONOCYTE # 0.5 TH/MM3 (0-0.9); NEUT % 71.1 % (16.0-70.0); PLATELET COUNT 63 TH/MM3 (150-450); RED BLOOD COUNT 3.83 MIL/MM3 (4.50-5.90); RED CELL DISTRIBUTION WIDTH 14.3 % (11.6-17.2); WHITE BLOOD COUNT 3.2 TH/MM3 (4.0-11.0)
[2017-06-17] MEDS: SODIUM CHLORIDE 0.9% FLUSH 10 ML FLUSH IV FLUSH SCH ×2 (07:20→20:13)
[2017-06-17 07:49] LABS: ALBUMIN 3.6 GM/DL (3.4-5.0); ALKALINE PHOSPHATASE 63 U/L (45-117); ALT (GPT) 84 U/L (12-78); AST (GOT) 155 U/L (15-37); BICARBONATE 28.5 MEQ/L (21.0-32.0); BLOOD UREA NITROGEN 10 MG/DL (7-18); CALCIUM 8.3 MG/DL (8.5-10.1); CHLORIDE 102 MEQ/L (98-107); CREATININE 0.77 MG/DL (0.60-1.30); GLOMERULAR FILTRATION RATE 102 ML/MIN (>89); GLUCOSE,RANDOM 98 MG/DL (74-106); SODIUM (NA) 141 MEQ/L (136-145); TOTAL BILIRUBIN ADULT 1.7 MG/DL (0.2-1.0)
[2017-06-17] MEDS: METOPROLOL TARTRATE 25 MG TAB PO SCH ×2 (08:36→20:12)
[2017-06-17] MEDS: MULTIVITAMINS/MINERALS THERAPEUTIC TAB PO SCH (08:37)
[2017-06-17] MEDS: FOLIC ACID 1 MG TAB PO SCH (08:37)
[2017-06-17] MEDS: THIAMINE HCL 100 MG TAB PO SCH (08:37)
[2017-06-17] MEDS: ASPIRIN EC 81 MG TABEC PO SCH (08:37)
[2017-06-17] MEDS ORDERED: ATENOLOL 50 MG TAB PO SCH (09:00)
--- NOTE | 2017-06-17 12:51 | HHI.FPPN ---
Subjective Remarks Vitals stable overnight, neurochecks Q4H, so far normal. Patient states he is feeling better today but no able to get out of bed or stand/walk: "I feel like a baby." Endorses feeling off-balance, cannot further elaborate. No numbness or tingling, chest pain. States he has some shortness of breath but attributes it to alcohol. Denies melena or hematemesis. States he has vomited due to alcohol recently. (Rae Bello MD R1) Objective Vitals Vital Signs Date Time Temp Pulse Resp B/P (MAP) Pulse Ox O2 Delivery O2 Flow Rate FiO2 06/17/17 12:06 98.2 94 17 127/77 (94) 93 06/17/17 08:00 98.1 84 20 137/89 (105) 94 06/17/17 04:00 93 06/17/17 04:00 98.2 91 18 142/74 (96) 94 06/17/17 02:09 97 21 06/17/17 00:00 98.7 101 18 141/73 (95) 96 06/17/17 00:00 81 06/16/17 20:00 98.0 104 18 128/61 (83) 94 06/16/17 20:00 89 06/16/17 17:58 97.5 93 17 118/66 (83) 94 06/16/17 17:45 100 16 124/55 (78) 97 Room Air 06/16/17 16:17 130 16 134/86 (102) 96 Room Air 06/16/17 14:05 85 14 107/65 (79) 95 Room Air 06/16/17 12:49 111 16 137/67 (90) 98 Room Air I/O 06/16/17 06/16/17 06/16/17 06/17/17 06/17/17 06/17/17 07:00 15:00 23:00 07:00 15:00 23:00 Intake Total 2000 ml 1330 ml Output Total 871 ml Balance 2000 ml 459 ml Intake IV Total 2000 ml 1330 ml Output Urine Total 450 ml Emesis 421 ml # Voids 1 (Rae Bello MD R1) Result Diagram: 06/17/17 0545 06/17/17 0545 Objective Remarks O. CONSTITUTIONAL/GEN: Thin elderly man in no acute distress. EYES: conjunctiva normal, EOMI. LUNGS: clear A-P, respiratory effort is normal. CARDIOVASCULAR: RR without murmur or gallop. No significant edema. GI/ABD: soft without masses, pain, and without organomegaly. NEURO: Cerebellar testing worsened since yesterday - expresses difficulty w/ nose to finger testing, + dysmetria and intention tremor. Abnormal gait: takes many short quick steps and requires leaning on wall or bed to not fall. Sways w/ standing before falling forward. SKIN: color normal, no rashes noted. HEME/LYMPH: no new bruising, petechia. MUSC: Extremities are normal in appearance, no cyanosis or edema. Slight clubbing of fingernails noted. PSYCH/MENTAL STATUS: Alert and awake. Some parts of history not clear. Is able to remember meeting me yesterday. (Rae Bello MD R1) A/P Assessment and Plan Patient is a 62-year-old male with a past medical history of A. fib admitted for syncope andafib w/RVR. On admission, patient was tachycardic and found to be in A. fib with RVR. Patient was found to be intoxicated and subsequently placed on CIWA protocol, tele, IVF hydration, and rate control w/25 mg metoprolol BID. Low CHADSVASC score, does not require anticoagulation. At risk for bleed 2/2 to alcohol abuse hx. Plan to further assess cerebellar-related changes noted to be worsening on exam today. PT consulted. Discharge Planning Patient lives alone and will likely require supportive services on discharge. (Rae Bello MD R1) Attending Attestation Patient seen and examined. Case reviewed and discussed with the resident team. Agree with plan of care as discussed with me and documented in the resident note. Patient with shaking from withdrawals. Felling about the same for admission. Workup pending. (Bobbi Sharif MD) Problem List: (1) Ataxia ICD Codes: R27.0 - Ataxia, unspecified Plan: Admitted after 2 episodes of syncope while walking w/groceries Was unable to rise after fall Cerebellar exam abnormal: +dysmetria, intention tremor, and ataxia Alcoholic w/hx of seizures (unclear whether he has a hx of DTs) CK mildly elevated to the 700s Differential: cerebellar degeneration 2/2 alcohol v myopathy v ischemic injury v Wernicke's v other demyelination disorder v malnutrition Order MRI brain Consult PT on CIWA protocol and Rally pack Order B12 and folate levels, trend CK Con't neurochecks and cardiac tele for now Cardiac echo pending (2) Syncope ICD Codes: R55 - Syncope and collapse Status: Resolved Plan: CT brain non-acute findings Afib w/RVR on admission Likely secondary to alcohol intoxication in addition to poor medication compliance v ischemic injury No further episodes of syncope or pre-syncope symptoms since admission Rate now currently controlled w/ metoprolol 25 mg BID Echo pending cardiac tele - no acute events overnight neurochecks Q4H - no acute changes so far (3) Atrial fibrillation with RVR ICD Codes: I48.91 - Unspecified atrial fibrillation Status: Acute Plan: See above Echo pending Will need follow-up w/cardiology after d/c (4) Transaminitis ICD Codes: R74.0 - Nonspecific elevation of levels of transaminase and lactic acid dehydrogenase [LDH] Status: Acute Plan: 2/2 alcohol intoxication Downtrending IVF @ maintenance today, DC tomorrow (5) Thrombocytopenia ICD Codes: D69.6 - Thrombocytopenia, unspecified Status: Acute Plan: Likely 2/2 chronic alcohol abuse No active bleeding at this time Plts 63 today (81) Monitor CBC daily (6) Alcohol abuse ICD Codes: F10.10 - Alcohol abuse, uncomplicated Status: Acute Plan: On CIWA protocol - scores since this morning have been 11-13 Hx of seizures related to withdrawal Low threshold for transfer to the unit Con't Rally pack (7) FEN Plan: Fluids: maintenance Electrolytes: not indicated Nutrition: regular diet DVT prophy: SCDs, Lovanox-renally dosed (Rae Bello MD R1) Rae Bello MD R1 Jun 17, 2017 12:51 Bobbi Sharif MD Jun 17, 2017 14:01
--- NOTE | 2017-06-17 13:57 | RADRPT ---
EXAM DATE/TIME: 06/17/2017 13:31 [place] COMPARISON: No previous studies available for comparison. INDICATIONS : Dizziness. MEDICAL HISTORY : Carcinoma, bone. SURGICAL HISTORY : None. ENCOUNTER: Initial ACUITY: 1 day PAIN SCORE: 0/10 LOCATION: cranial TECHNIQUE: Multiplanar, multisequence MRI of the brain was performed without contrast. FINDINGS: There is a suspected remote lacunar infarct in the posterior aspect of the yue measuring up to about 11 mm in length and 7 mm in AP diameter. No recent infarct is identified on the diffusion weighted i mages. There is no mass effect or midline shift. No hydrocephalus. No intracranial edema identified. Pituitary is normal size. CONCLUSION: 1. 11 mm x 7 mm lacunar infarct in the posterior aspect of the yue. No acute findings. Diogenes Aquino MD on June 17, 2017 at 13:51 Board Certified Radiologist. This report was verified electronically.
--- NOTE | 2017-06-17 14:21 | EKG ---
Date Performed: 06/16/2017 Time Performed: 11:53:48 PTAGE: 62 years EKG: ATRIAL FIBRILLATION WITH RAPID VENTRICULAR RESPONSE ABNORMAL RHYTHM ECG PREVIOUS TRACING : 04/12/2016 11.49.38 Compared to previous tracing, atrial fibrillation has rep laced normal Sinus rhythm . DOCTOR: German Almanza Interpretating Date/Time 06/17/2017 14:20:32
--- NOTE | 2017-06-17 14:50 | ECHRPT ---
Indication: Syncope and collapse CONCLUSIONS The left ventricular systolic function is normal with an estimated ejection fraction in the range of 60-65%. Wall thickness is measured at the upper limits of normal. Normal left ventricular size. There is mild tricuspid valve regurgitation. The estimated pulmonary arterial pressure is 31.3 mmHg. BP: / HR: Rhythm: Sinus MEASUREMENTS (Male / Female) Normal Values Technical Quality:Fair 2D ECHO LV Diastolic Diameter PLAX 4.4 cm 4.2 - 5.9 / 3.9 - 5.3 cm LV Systolic Diameter PLAX 3.2 cm IVS Diastolic Thickness 1.1 cm 0.6 - 1.0 / 0.6 - 0.9 cm LVPW Diastolic Thickness 1.1 cm 0.6 - 1.0 / 0.6 - 0.9 cm LV Relative Wall Thickness 0.5 LVOT Diameter 2.2 cm M-MODE Aortic Root Diameter MM 3.8 cm LA Systolic Diameter MM 3.3 cm LA Ao Ratio MM 0.9 AV Cusp Separation MM 1.9 cm DOPPLER AV Peak Velocity 118.0 cm/s AV Peak Gradient 5.6 mmHg LVOT Peak Velocity 88.8 cm/s LVOT Peak Gradient 3.2 mmHg AV Area Cont Eq pk 2.9 cm Mitral E Point Velocity 91.3 cm/s Mitral A Point Velocity 47.4 cm/s Mitral E to A Ratio 1.9 TR Peak Velocity 231.0 cm/s TR Peak Gradient 21.3 mmHg Right Atrial Pressure 10.0 mmHg Pulmonary Artery Systolic Pressu 31.3 mmHg Right Ventricular Systolic Press 31.3 mmHg PV Peak Velocity 99.1 cm/s PV Peak Gradient 3.9 mmHg FINDINGS LEFT VENTRICLE The left ventricular systolic function is normal with an estimated ejection fraction in the range of 60-65%. Wall thickness is measured at the upper limits of normal. Normal left ventricular size. RIGHT VENTRICLE Normal right ventricular size and systolic function. LEFT ATRIUM The left atrial size is normal. RIGHT ATRIUM The right atrial size is normal. ATRIAL SEPTUM Normal atrial septal thickness without atrial level shunting by limited color doppler interrogation. AORTA The aortic root and proximal ascending aorta are normal in size on limited imaging. MITRAL VALVE Structurally normal mitral valve. No mitral valve stenosis or regurgitation. AORTIC VALVE Trileaflet aortic valve. No aortic valve stenosis or regurgitation. TRICUSPID VALVE There is mild tricuspid valve regurgitation. The estimated pulmonary arterial pressure is 31.3 mmHg. PULMONARY VALVE No pulmonary valve regurgitation or stenosis. VESSELS The inferior vena cava is normal in size. PERICARDIUM No pericardial effusion. El Barcenas MD (Electronically Signed) Final Date:17 June 2017 14:50
[2017-06-17] MEDS: ENOXAPARIN SODIUM 40 MG/0.4 ML SYRINGE SQ SCH (15:14)
[2017-06-17] MEDS: LORazepam 1 MG TAB PO PRN (22:24)
[2017-06-18] VITALS (9 sets, daily range): BP systolic 117–163; BP diastolic 67–90; PULSE 62–107; RESP 16–22; TEMP 98–98.9; O2SAT 92–98
[2017-06-18] MEDS: LORazepam 1 MG TAB PO PRN (02:14)
[2017-06-18] MEDS: SODIUM CHLOR 0.9% 1000 ML INJ 1,000 ML IV SCH ×3 (06:16→20:47)
[2017-06-18] MEDS: LORazepam 2 MG TAB PO PRN ×2 (06:16→08:18)
[2017-06-18 07:05] LABS: AUTOMATED NEUTROPHIL # 2.2 TH/MM3 (1.8-7.7); BASOPHIL % 1.3 % (0.0-2.0); EOSINOPHIL % 0.2 % (0.0-4.0); HEMATOCRIT 37.8 % (39.0-51.0); LYMPH % 19.6 % (9.0-44.0); LYMPHOCYTE # 0.7 TH/MM3 (1.0-4.8); MEAN CELL VOLUME 102.6 FL (80.0-100.0); MEAN CORPUSCULAR HEMOGLOBIN 35.2 PG (27.0-34.0); MEAN CORPUSCULAR HGB CONC 34.3 % (32.0-36.0); MEAN PLATELET VOLUME 9.5 FL (7.0-11.0); MONO % 18.6 % (0.0-8.0); MONOCYTE # 0.7 TH/MM3 (0-0.9); NEUT % 60.3 % (16.0-70.0); PLATELET COUNT 61 TH/MM3 (150-450); RED BLOOD COUNT 3.68 MIL/MM3 (4.50-5.90); WHITE BLOOD COUNT 3.7 TH/MM3 (4.0-11.0)
[2017-06-18 07:39] LABS: ALBUMIN 3.5 GM/DL (3.4-5.0); AST (GOT) 98 U/L (15-37); BICARBONATE 27.7 MEQ/L (21.0-32.0); BLOOD UREA NITROGEN 10 MG/DL (7-18); CALCIUM 8.5 MG/DL (8.5-10.1); CHLORIDE 103 MEQ/L (98-107); GLOMERULAR FILTRATION RATE 98 ML/MIN (>89); GLUCOSE,RANDOM 86 MG/DL (74-106); SODIUM (NA) 140 MEQ/L (136-145)
[2017-06-18 07:41] LABS: ALT (GPT) 66 U/L (12-78)
[2017-06-18 08:07] LABS: ALKALINE PHOSPHATASE 57 U/L (45-117); TOTAL BILIRUBIN ADULT 1.4 MG/DL (0.2-1.0); TOTAL PROTEIN 6.5 GM/DL (6.4-8.2)
[2017-06-18] MEDS: FOLIC ACID 1 MG TAB PO SCH (08:19)
[2017-06-18] MEDS: METOPROLOL TARTRATE 25 MG TAB PO SCH (08:19)
[2017-06-18] MEDS: MULTIVITAMINS/MINERALS THERAPEUTIC TAB PO SCH (08:19)
[2017-06-18] MEDS: ASPIRIN EC 81 MG TABEC PO SCH (08:19)
[2017-06-18] MEDS: THIAMINE HCL 100 MG TAB PO SCH (08:19)
[2017-06-18 08:26] LABS: FOLATE GREATER THAN 20.0 NG/ML (3.1-17.5)
[2017-06-18] MEDS ORDERED: POTASSIUM CHLORIDE 10 MEQ CONTROLLED RELEASE TAB PO ONE (08:45)
[2017-06-18] MEDS: SODIUM CHLORIDE 0.9% FLUSH 10 ML FLUSH IV FLUSH SCH ×2 (09:00→20:39)
[2017-06-18] MEDS: LORazepam 2 MG/ML VIAL IV PUSH PRN ×9 (10:13→22:30)
[2017-06-18] MEDS ORDERED: HALOPERIDOL LACTATE 5 MG/ML AMP IV PRN (12:15)
--- NOTE | 2017-06-18 12:25 | HHI.FPPN ---
Subjective Remarks Patient is oriented x1 today. Hallucinating that there is a cat and rat in the room. No pain endorsed. CIWA scores 8-11 overnight. Received a total of 8 mg PO Ativan overnight. Received 2 mg IV this morning. Vitals recorded overnight have been stable, no tachycardia or hypertension. (Rae Bello MD R1) Objective Vitals Vital Signs Date Time Temp Pulse Resp B/P (MAP) Pulse Ox O2 Delivery O2 Flow Rate FiO2 06/18/17 08:00 98.6 91 20 118/68 (85) 97 06/18/17 04:05 67 06/18/17 04:00 98.3 62 17 137/89 (105) 97 06/18/17 00:58 75 06/18/17 00:00 98.2 65 18 124/81 (95) 92 06/17/17 21:00 97 21 06/17/17 20:54 79 06/17/17 20:00 97.8 86 17 131/80 (97) 95 06/17/17 16:00 98.5 70 20 142/85 (104) 95 I/O 06/17/17 06/17/17 06/17/17 06/18/17 06/18/17 06/18/17 07:00 15:00 23:00 07:00 15:00 23:00 Intake Total 1330 ml 480 ml 360 ml Output Total 871 ml Balance 459 ml 480 ml 360 ml Intake Oral 480 ml 360 ml IV Total 1330 ml Output Urine Total 450 ml Emesis 421 ml # Voids 4 3 (Rae Bello MD R1) Result Diagram: 06/18/1720 06/18/17 0620 Objective Remarks O. CONSTITUTIONAL/GEN: Thin elderly man who pleasantly confused, speaking in a low voice. EYES: conjunctiva normal, EOMI. LUNGS: clear A-P, respiratory effort is normal. CARDIOVASCULAR: RR without murmur or gallop. No significant edema. GI/ABD: soft without masses, pain, and without organomegaly. NEURO: Slight tremor of the right hand noted. Patient is laying flat in bed, moves very little. SKIN: color normal, no rashes noted. HEME/LYMPH: no new bruising, petechia. MUSC: Extremities are normal in appearance, no cyanosis or edema. Slight clubbing of fingernails noted. PSYCH/MENTAL STATUS: Alert and oriented x1. (Rae Bello MD R1) A/P Assessment and Plan Patient is a 62-year-old male with a past medical history of A. fib admitted for syncope andafib w/RVR. On admission, patient was tachycardic and found to be in A. fib with RVR. Patient was found to be intoxicated and subsequently placed on CIWA protocol, tele, IVF hydration, and rate control w/25 mg metoprolol BID. CHADSVASC score found to be 0 on admission. However, MRI brain shows old infarct in posterior yue not seen in imaging 2 years ago. CHADSVASC score of at least 2 with this information. Will likely require anticoagulation. However, current clinical picture limits this as he is at risk for bleed 2/2 to alcohol abuse hx. Plan to further assess cerebellar-related changes. PT consulted. Later this afternoon, CIWA score increased to 27, patient was agitated and violent, requiring restraints. Critical care was consulted and transfer order was placed. IV Ativan 4mg was given x2 with Haldol. Patient became more sedated afterwards. Patient was observed to have a right sided arm tremor lasting less than 30 min. This occurred x2. Suspicion for possible partial seizure. Further assessment w/neuro consult, EEG for seizures, labs for vitamin deficiency was ordered. Discharge Planning Patient lives alone and will likely require supportive services on discharge. (Rae Bello MD R1) Attending Attestation Patient seen and examined. Case reviewed and discussed with the resident team. Agree with plan of care as discussed with me and documented in the resident note. Late entry -- patient was seen and examined 10:00am on 06/17/17. At that time he was oriented times two. Moderately shaking in the arms. He was unsteady with walking but cooperative. Was not cleared for d/c due to ETOH withdrawal. Patient did decompensate during the day and started to hallucinate and become combative and was transferred to the ICU for care. Patient was seen and examined with the resident, Dr. Bello (Bobbi Sharif MD) Problem List: (1) Ataxia ICD Codes: R27.0 - Ataxia, unspecified Plan: Admitted after 2 episodes of syncope while walking w/groceries. Was unable to rise after fall due to balance problems Cerebellar exam abnormal: +dysmetria, intention tremor, and ataxia. Prominent nytagmus w/horizontal gaze. Unlikely due to withdrawal since patient was intoxicated on the day symptoms presented Alcoholic w/hx of seizures (unclear whether he has a hx of DTs) CK mildly elevated to the 700s on admission Differential: cerebellar degeneration 2/2 alcohol v myopathy v ischemic injury v Wernicke's v other demyelination disorder Unfortunately, expect a continued decline in symptoms as this is likely related to chronic alcohol use and treatment options are limited to physical therapy for support Imaging Reports: 06/[address]: 1 cm hypodensity in the central yue which may be an old lacunar infarct. 06/17 Brain MRI: There is a suspected remote lacunar infarct in the posterior aspect of the yue measuring up to about 11 mm in length and 7 mm in AP diameter. No recent infarct is identified on the diffusion weighted images. There is no mass effect or midline shift. No hydrocephalus. No intracranial edema identified. Pituitary is normal size. 06/17 Echo - normal ejection fraction, mild tricuspid regurgitation 06/16 CXR negative for malignancy, infection, or mass On CIWA protocol and Rally pack - CIWA scores 8-11, low threshold for transfer B12 and folate elevated and patient denies numbness or tingling in the extremities, CK downtrending - no concern for vitamin deficiency or acute myopathy at this time Con't neurochecks and cardiac tele for now PT consulted for assessment: believed patient's unsteadiness to be related to alcohol withdrawal, noted a right tilt. Will need to be reconsulted in the future for reassessment, as alcohol withdrawal does not explain clinical picture Order MRA Brain for tomorrow per stroke work-up protocol; also will assess for ischemia related to vertebrobasilar insufficiency v structural anomalies (2) Syncope ICD Codes: R55 - Syncope and collapse Status: Resolved Plan: See above plan (3) History of stroke ICD Codes: Z86.73 - Personal history of transient ischemic attack (TIA), and cerebral infarction without residual deficits Plan: Seen per MRI brain Add daily aspirin 81 mg Will likely require a statin. Order lipid panel (4) Atrial fibrillation with RVR ICD Codes: I48.91 - Unspecified atrial fibrillation Status: Acute Plan: Echo w/normal ejection fracture and mild TR Metoprolol 25 BID for rate control Not chronically on anticoagulation. 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 May require anticoagulation, neuro consulted. Will need follow-up w/cardiology after d/c (5) Transaminitis ICD Codes: R74.0 - Nonspecific elevation of levels of transaminase and lactic acid dehydrogenase [LDH] Status: Acute Plan: 2/2 alcohol intoxication Downtrending Con't IVF @ maintenance (6) Thrombocytopenia ICD Codes: D69.6 - Thrombocytopenia, unspecified Status: Acute Plan: Likely 2/2 chronic alcohol abuse No active bleeding at this time Monitor CBC daily (7) Leukocytopenia ICD Codes: D72.819 - Decreased white blood cell count, unspecified Plan: Likely related to alcoholism. Monitor w/daily CBC (8) Alcohol abuse ICD Codes: F10.10 - Alcohol abuse, uncomplicated Status: Acute Plan: On [facility] protocol - scores since this morning have been 8-11 Hx of seizures and likely DTs related to withdrawal Standing orders of 2 mg IV Ativan Q6/Q4H and librium 50 mg Q8H PRN will need to be placed in his future hospitalizations (and held for drowsiness or sedated respiratory rate), as he is a low threshold for transfer 2/2 to withdrawal Con't Rally pack (9) FEN Plan: Fluids: maintenance Electrolytes: not indicated Nutrition: regular diet DVT prophy: SCDs, Lovanox-renally dosed (Rae Bello MD R1) Rae Bello MD R1 Jun 18, 2017 12:25 Bobbi Sharif MD Jun 19, 2017 08:37
[2017-06-18] MEDS: LORazepam 2 MG/ML VIAL IV PRN ×2 (12:26→12:48)
[2017-06-18] MEDS ORDERED: chlordiazePOXIDE 25 MG CAP PO SCH (13:00)
[2017-06-18] MEDS: LORazepam 2 MG/ML VIAL IV PUSH SCH ×2 (13:00→19:53)
--- NOTE | 2017-06-18 14:40 | PD.CONS ---
[facility] Critical Care Medicine Consult Requested By Dr. Bello/ Family medicine service Reason for Consult Agitation, worsening alcohol withdrawal Primary Care Physician Chelsea Weems M.D. History of Present Illness 62-year-old male with a medical history significant for alcohol abuse who was admitted on 06/16/2017. Patient reportedly drank alcohol when to get groceries and then while walking to the car felt off balance and fell and was unable to get up. [facility] was called by bystanders and patient was brought to the ER. Reportedly there was no history of witnessed seizures tongue biting or urinary incontinence. Patient had A. fib with RVR on arrival and received Cardizem 20 mg IV and subsequently had a head CT which showed a hypodense lesion in the posterior yue which look like old ischemic infarct. Patient was admitted by family medicine service. He was also noted to be ataxic. MRI brain revealed old ischemic infarct in the region of upper yue posteriorly. Patient has a history of significant alcohol abuse drinking 6-10 shots of vodka daily and has a history of A. fib though does not have regular follow-up. He did undergo cardiac ablation 5 years ago per documentation. His home medications list atenolol and aspirin 81 mg daily however has not been on anticoagulation. Patient was placed on alcohol withdrawal protocol on the floor however today he got extremely agitated with hallucinations and was taking at the nursing staff. Critical care consult was requested for worsening alcohol withdrawal. I evaluated the patient at the bedside. He had just received 4 mg of Ativan IV prior to my arrival. He was still awake and alert at the time with occasional tremors noted in right upper extremity which were coarse. He knew he was at the hospital and was following commands appropriately though stated that he was angry and wanted to go home. He received 4 more milligrams of IV Ativan and 5 mg of Haldol IV to control his anxiety/restlessness/agitation and was awaiting transfer to the ICU. He was tachycardic with heart rate 120s atrial fibrillation at the time of my arrival however with additional sedation his heart rate came down to the 90s. He was maintaining his blood pressure and O2 sats. History was obtained by reviewing records and discussion with Dr. Bello- rn family practice. Review of Systems difficult to be obtained in view of agitation/that he requiring sedation for suspected alcohol withdrawal Past Family Social History Past Medical History Atrial fibrillation-controlled on atenolol Past Surgical History Cardiac ablation-5 years ago Allergies: Coded Allergies: No Known Allergies (Unverified Allergy, Unknown, 06/16/17) Home meds: Atenolol, ASA 81mg daily Family History Mom: No significant past medical history Dad: No significant past medical history Social History Lives alone. Drinks 6-10 shots of vodka daily No smoking hx No recreational or illict drug use Physical Exam Vital Signs Vital Signs Date Time Temp Pulse Resp B/P (MAP) Pulse Ox O2 Delivery O2 Flow Rate FiO2 06/18/17 12:40 107 16 117/67 (84) 94 06/18/17 12:00 98.0 102 22 163/90 (114) 95 06/18/17 08:00 98.6 91 20 118/68 (85) 97 06/18/17 08:00 88 06/18/17 04:05 67 06/18/17 04:00 98.3 62 17 137/89 (105) 97 06/18/17 00:58 75 06/18/17 00:00 98.2 65 18 124/81 (95) 92 06/17/17 21:00 97 21 06/17/17 20:54 79 06/17/17 20:00 97.8 86 17 131/80 (97) 95 06/17/17 16:00 98.5 70 20 142/85 (104) 95 Physical Exam HEENT/Neuro: No pallor or icterus, tongue moist, WOOD, Awake alert, knows he is in the hospital and wants to go home, not very cooperative, occasional coarse tremor noted in right upper extremity, moving all 4 extremities. Difficult to obtain detailed neurologic examination of agitation Neck: No JVD Chest/pulmonary: CTA bilaterally Cardiovascular: S1-S2 regular no gallop or murmur GI/abdomen: Soft, nontender, bowel sounds present Extremities: Warm bilaterally, no edema. Abrasions over his shins noted. Laboratory Laboratory Tests Test 06/18/17 06:20 White Blood Count 3.7 Red Blood Count 3.68 Hemoglobin 13.0 Hematocrit 37.8 Mean Corpuscular Volume 102.6 Mean Corpuscular Hemoglobin 35.2 Mean Corpuscular Hemoglobin Concent 34.3 Red Cell Distribution Width 14.0 Platelet Count 61 Mean Platelet Volume 9.5 Neutrophils (%) (Auto) 60.3 Lymphocytes (%) (Auto) 19.6 Monocytes (%) (Auto) 18.6 Eosinophils (%) (Auto) 0.2 Basophils (%) (Auto) 1.3 Neutrophils # (Auto) 2.2 Lymphocytes # (Auto) 0.7 Monocytes # (Auto) 0.7 Eosinophils # (Auto) 0.0 Basophils # (Auto) 0.0 CBC Comment AUTO DIFF Differential Comment AUTO DIFF CONFIRMED Platelet Estimate LOW Platelet Morphology Comment NORMAL Blood Urea Nitrogen 10 Creatinine 0.80 Random Glucose 86 Total Protein 6.5 Albumin 3.5 Calcium Level 8.5 Alkaline Phosphatase 57 Aspartate Amino Transf (AST/SGOT) 98 Alanine Aminotransferase (ALT/SGPT) 66 Total Bilirubin 1.4 Sodium Level 140 Potassium Level 3.2 Chloride Level 103 Carbon Dioxide Level 27.7 Anion Gap 9 Estimat Glomerular Filtration Rate 98 Total Creatine Kinase 666 Creatine Kinase MB 2.5 Creatine Kinase MB % 0.4 Vitamin B12 Level 1040 Folate GREATER THAN 20.0 Result Diagram: 06/18/17 0620 06/18/17 0620 Imaging Last Impressions Brain MRI 06/17/17 0000 Signed Impressions: Service Date/Time: Saturday, June 17, 2017 13:31 - CONCLUSION: 1. 11 mm x 7 mm lacunar infarct in the posterior aspect of the yue. No acute findings. Diogenes Aquino MD Head CT 06/16/17 115 Signed Impressions: Service Date/Time: Friday, June 16, 2017 12:18 - CONCLUSION: 1 cm hypodensity in the central yue which may be an old lacunar infarct. This could be further characterized with MRI if clinically indicated.. Todd Verde MD Chest X-Ray 06/16/17 1153 Signed Impressions: Service Date/Time: Friday, June 16, 2017 12:43 - CONCLUSION: No acute disease. Mild scarring is again noted the right lung base. Carlito Head MD Assessment and Plan Assessment and Plan 62-year-old male with: Encephalopathy/agitation with suspected alcohol withdrawal Ataxia Syncope Hyponatremia Atrial fibrillation Old ischemic CVA involving yue Macrocytosis Leukopenia Thrombocytopenia Plan: Neuro: Received 8 mg IV Ativan and Haldol 5 mg IV to control agitation/alcohol withdrawal. Continue CIBA protocol, thiamine/MVI/folic acid per protocol. Will obtain stat EEG in view of tremors noted in right upper extremity to evaluate for seizures. MRI brain with evidence of old ischemic infarct in the yue. Ataxia appears to be relatively new. Check MMA and folic acid levels to evaluate for functional B-12 and folic acid deficiency. Neurology consult requested for further stroke workup as well as evaluation of ataxia and altered mental status. Librium PO added on 07/02 for ETOH withdrawal. Cardiovascular: IV hydration with normal saline. Watch for hypotension. Continue beta deepali for rate control for A. fib. On aspirin 81 mg daily. Consider increasing to 162 mg daily. May require full anticoagulation in view of previous evidence of ischemic range stem infarct and history of A. fib. Awaiting neurology evaluation. Pulmonary: Dictating airway currently. Continue supplemental O2 as needed. If alcohol withdrawal worsens, may require endotracheal intubation for deep sedation. GI/liver: LFTs improving. By mouth diet as tolerated. Renal/: IV hydration, strict intake output, monitor and replete elect lites, follow BUN/creatinine. ID: No indication for antibiotics at this time. Heme: Follow CBC. Pre-existing thrombocytopenia from EtOH bone marrow suppression. Worsening thrombocytopenia noted. Hold Lovenox, check HIT screen. Awaiting MMA and fully casted levels to evaluate for macrocytosis. Endocrine: Watch for hyperglycemia, SSI for glycemic control if needed. Prophylaxis: SCDs. No indication for GI prophylaxis at this time. Discussed with NEWSPAPER ILLUSTRATOR, D/W Dr. Bello Critical care will continue to follow. Bruce Campbell MD Jun 18, 2017 14:40
[2017-06-18] MEDS ORDERED: HALOPERIDOL LACTATE 5 MG/ML AMP IM PRN (15:15)
[2017-06-18] MEDS: METOPROLOL TARTRATE 5 MG/5 ML VIAL IV PUSH SCH ×2 (15:21→20:39)
--- NOTE | 2017-06-18 15:47 | MB ---
cc: Luis Gramajo MD, PhD DATE: 06/18/2017 REASON FOR CONSULTATION: Syncope. HISTORY OF PRESENT ILLNESS: Mr. Wall is a 62-year-old man who apparently was drinking alcohol the morning of 06/16. He was walking to his car, fell due to being off balance. He was unable to get up. [facility] was called. He was brought to the hospital, went into AFib with RVR. Apparently, has a history in the past of seizures due to alcohol withdrawal. He has been having intermittent twitching activity of the upper extremities. Stat EEG is obtained. PAST MEDICAL HISTORY: History of alcohol abuse, seizures related to alcohol withdrawal. CURRENT MEDICATIONS: Librium 50 mg b.i.d., Haldol p.r.n., agitation, Lopressor, Ativan p.r.n., aspirin 81 mg daily, multivitamin 1 a day, thiamine, folic acid, Zofran. PHYSICAL EXAMINATION: VITAL SIGNS: Blood pressure is 117/67, pulse 107, respiratory rate is 22, temperature 98.6 degrees. NEUROLOGIC: Higher cortical function is nonresponsive, does not follow commands. Cranial nerves: The pupils are equal and reactive. Extraocular movements intact. There is no facial asymmetry. Motor: He has normal clinical quality manager bilaterally. He occasionally is tremulous in the upper extremities. He has got increased tone bilaterally. DIAGNOSTIC DATA: MRI of the brain: No acute changes, an old stroke in the yue, a small lacunar stroke, but no acute change. CT of the brain: A 1 cm hyperdensity, central yue, which appears old vascular. ELECTROENCEPHALOGRAM: I did review his EEG showing generalized theta activity. I did not see any epileptiform discharges on the EEG. LABORATORY DATA: The white count is 3700, hemoglobin 13, hematocrit 37%, platelet count 61,000. Sodium is 140, potassium 3.2, chloride 103, CO2 is 27.7, the BUN is 10, creatinine 0.8, GFR 98, glucose is 86, calcium 8.5, AST 98, ALT 66, alkaline phosphatase 57. B12 of 1040. Tox screen: Alcohol level 317. IMPRESSION: Probably encephalopathy due to alcohol abuse. At this time, I do not see any evidence for ongoing seizure activity. Recommend delirium tremens precautions. Treat the patient with thiamine. I will start the patient on Keppra prophylactically, as he does have a history in the past of alcohol withdrawal seizures, although I do not see any epileptiform activity on the current EEG. Luis Gramajo MD, PhD CURTIS/SB , 03:31 PM , 03:46 PM
[2017-06-18 17:56] LABS: CHOLESTEROL/ HDL RATIO 2.36 RATIO; HDL CHOLESTEROL 78.1 MG/DL (40.0-60.0)
[2017-06-18] MEDS ORDERED: CHLORHEXIDINE GLUCONATE 2 % 1 PACK (2 CLOTHS)(extra cloths) TOPICAL PRN (19:30)
--- NOTE | 2017-06-18 19:36 | MG ---
cc: Luis Gramajo MD, PhD TEST NUMBER: [id number] TECHNIQUE: A 17-channel EEG. DESCRIPTION: Background rhythm reveals mild slowing in the theta range. There is prominent muscle artifact. During the tracing, the patient does demonstrate tremors of the upper extremities, but there is no corresponding epileptiform discharges. No lateralizing features are identified. There is beta activity as well, probably related to medication effect. Photic stimulation results in a poor driving response. INTERPRETATION: This is an abnormal study consistent with moderate encephalopathy. No epileptiform features are identified. Luis Gramajo MD, PhD CURTIS/SB , 07:25 PM , 07:35 PM
[2017-06-18] MEDS: HALOPERIDOL LACTATE 5 MG/ML AMP IV PRN (19:53)
[2017-06-18] MEDS: levETIRAcetam INJ 500 MG in SODIUM CHLORIDE 0.9% INJ 100 ML IV SCH (20:42)
[2017-06-18] MEDS: chlordiazePOXIDE 25 MG CAP PO SCH (21:16)
[2017-06-19] VITALS (19 sets, daily range): BP systolic 120–160; BP diastolic 69–103; PULSE 72–146; RESP 15–27; TEMP 97.5–98.5; O2SAT 86–100
[2017-06-19] MEDS: HALOPERIDOL LACTATE 5 MG/ML AMP IV PRN ×4 (00:43→16:11)
[2017-06-19] MEDS: LORazepam 2 MG/ML VIAL IV PUSH SCH ×4 (00:43→19:06)
[2017-06-19] MEDS: LORazepam 2 MG/ML VIAL IV PUSH PRN ×14 (01:05→19:44)
[2017-06-19] MEDS: METOPROLOL TARTRATE 5 MG/5 ML VIAL IV PUSH SCH ×4 (03:00→20:15)
[2017-06-19] MEDS: CHLORHEXIDINE GLUCONATE 2 % 1 PACK (2 CLOTHS)(taper/protocol) TOPICAL SCH (04:00)
[2017-06-19 04:20] LABS: AUTOMATED NEUTROPHIL # 3.1 TH/MM3 (1.8-7.7); EOSINOPHIL % 0.8 % (0.0-4.0); HEMOGLOBIN 13.9 GM/DL (13.0-17.0); LYMPH % 13.1 % (9.0-44.0); LYMPHOCYTE # 0.6 TH/MM3 (1.0-4.8); MEAN CELL VOLUME 101.4 FL (80.0-100.0); MEAN CORPUSCULAR HEMOGLOBIN 35.2 PG (27.0-34.0); MEAN CORPUSCULAR HGB CONC 34.7 % (32.0-36.0); MONO % 14.6 % (0.0-8.0); MONOCYTE # 0.6 TH/MM3 (0-0.9); NEUT % 70.5 % (16.0-70.0); PLATELET COUNT 68 TH/MM3 (150-450); RED BLOOD COUNT 3.95 MIL/MM3 (4.50-5.90); RED CELL DISTRIBUTION WIDTH 13.7 % (11.6-17.2); WHITE BLOOD COUNT 4.4 TH/MM3 (4.0-11.0)
[2017-06-19] MEDS: SODIUM CHLOR 0.9% 1000 ML INJ 1,000 ML IV SCH ×2 (04:27→12:26)
[2017-06-19 04:42] LABS: ALBUMIN 3.6 GM/DL (3.4-5.0); ALT (GPT) 59 U/L (12-78); AST (GOT) 76 U/L (15-37); BICARBONATE 27.4 MEQ/L (21.0-32.0); BLOOD UREA NITROGEN 8 MG/DL (7-18); CALCIUM 8.8 MG/DL (8.5-10.1); CHLORIDE 107 MEQ/L (98-107); CREATININE 0.72 MG/DL (0.60-1.30); GLOMERULAR FILTRATION RATE 110 ML/MIN (>89); GLUCOSE,RANDOM 83 MG/DL (74-106); SODIUM (NA) 144 MEQ/L (136-145)
[2017-06-19 04:45] LABS: ALKALINE PHOSPHATASE 66 U/L (45-117); TOTAL BILIRUBIN ADULT 1.6 MG/DL (0.2-1.0); TOTAL PROTEIN 7.2 GM/DL (6.4-8.2)
[2017-06-19] MEDS ORDERED: POTASSIUM CHLORIDE 10 MEQ CONTROLLED RELEASE TAB PO ONE (08:15)
[2017-06-19] MEDS: MULTIVITAMINS/MINERALS THERAPEUTIC TAB PO SCH (08:19)
[2017-06-19] MEDS: ASPIRIN EC 81 MG TABEC PO SCH (08:19)
[2017-06-19] MEDS: chlordiazePOXIDE 25 MG CAP PO SCH ×3 (08:19→20:13)
[2017-06-19] MEDS: FOLIC ACID 1 MG TAB PO SCH (08:19)
[2017-06-19] MEDS: levETIRAcetam INJ 500 MG in SODIUM CHLORIDE 0.9% INJ 100 ML IV SCH ×2 (08:23→20:14)
[2017-06-19] MEDS: THIAMINE HCL 200 MG/2 ML VIAL IM SCH (08:24)
[2017-06-19] MEDS: SODIUM CHLORIDE 0.9% FLUSH 10 ML FLUSH IV FLUSH SCH ×2 (08:25→20:14)
[2017-06-19] MEDS: THIAMINE HCL 100 MG TAB PO SCH (08:27)
[2017-06-19] MEDS ORDERED: ASPIRIN EC 81 MG TABEC PO ONE (09:00)
--- NOTE | 2017-06-19 10:29 | HHI.FPPN ---
Subjective Remarks Patient seen and examined this morning. No chest pain, no shortness of breath, no abdominal pain, no nausea/ vomiting. He was hallucinating that he had concrete boots on his feet and that the mafia was going to drown him in the ocean. (Tania Lawrence MD R1) Objective Vitals Vital Signs Date Time Temp Pulse Resp B/P (MAP) Pulse Ox O2 Delivery O2 Flow Rate FiO2 06/19/17 08:00 98.3 106 17 159/96 (117) 97 06/19/17 08:00 100 Nasal Cannula 2.00 06/19/17 06:00 143 06/19/17 04:00 97.5 79 19 132/77 (95) 96 06/19/17 04:00 97 Nasal Cannula 3.00 06/19/17 04:00 79 06/19/17 02:00 91 06/19/17 00:00 98.3 72 19 120/69 (86) 98 06/19/17 00:00 72 06/19/17 00:00 99 Nasal Cannula 3.00 21 06/18/17 20:00 99 Nasal Cannula 3.00 21 06/18/17 19:00 98.4 88 18 137/74 (95) 98 06/18/17 16:00 98 Nasal Cannula 3.00 21 06/18/17 15:00 90 06/18/17 15:00 98.9 90 22 129/88 (102) 98 06/18/17 14:37 100 Nasal Cannula 3.00 06/18/17 12:40 107 16 117/67 (84) 94 06/18/17 12:00 98.0 102 22 163/90 (114) 95 I/O 06/18/17 06/18/17 06/18/17 06/19/17 06/19/17 06/19/17 07:00 15:00 23:00 07:00 15:00 23:00 Intake Total 360 ml 6105 ml Balance 360 ml 6105 ml Intake Oral 360 ml 0 ml IV Total 6105 ml # Voids 3 # Bowel Movements 0 (Tania Lawrence MD R1) Result Diagram: 06/19/17 0408 06/19/17 0408 Imaging Last Impressions Brain MRI 06/17/17 0000 Signed Impressions: Service Date/Time: Saturday, June 17, 2017 13:31 - CONCLUSION: 1. 11 mm x 7 mm lacunar infarct in the posterior aspect of the yue. No acute findings. Diogenes Aquino MD Head CT 06/16/17 1157 Signed Impressions: Service Date/Time: Friday, June 16, 2017 12:18 - CONCLUSION: 1 cm hypodensity in the central yue which may be an old lacunar infarct. This could be further characterized with MRI if clinically indicated.. Todd Verde MD Chest X-Ray 06/16/17 9553 Signed Impressions: Service Date/Time: Friday, June 16, 2017 12:43 - CONCLUSION: No acute disease. Mild scarring is again noted the right lung base. Carlito Head MD Objective Remarks CONSTITUTIONAL/GEN: Thin white male laying in bed in soft restraints, speaking in a low voice. EYES: conjunctiva normal, EOMI. LUNGS: clear A-P, respiratory effort is normal. CARDIOVASCULAR: Irregular irregular rhythm without murmur or gallop. GI/ABD: soft without masses, pain, and without organomegaly. NEURO: Slight tremor of the bilateral hands noted. SKIN: color normal, no rashes noted. : stokes in place MUSC: Extremities are normal in appearance, no cyanosis or edema. Slight clubbing of fingernails noted. PSYCH/MENTAL STATUS: Alert and oriented x3 to person, place, and time. (Tania Lawrence MD R1) A/P Assessment and Plan Patient is a 62-year-old male with a past medical history of A. fib admitted for syncope and afib w/RVR. On admission, patient was tachycardic and found to be in A. fib with RVR. Patient was found to be intoxicated and subsequently placed on CIWA protocol, tele, IVF hydration, and rate control w/25 mg metoprolol BID. Discharge Planning Patient lives alone and will likely require supportive services on discharge. (Tania Lawrence MD R1) Attending Attestation Case reviewed and discussed with the resident team. Agree with plan of care as discussed with me and documented in the resident note. (Bobbi Sharif MD) Problem List: (1) Ataxia ICD Codes: R27.0 - Ataxia, unspecified Status: Acute Plan: Admitted after 2 episodes of syncope while walking w/groceries. Was unable to rise after fall due to balance problems Cerebellar exam abnormal: +dysmetria, intention tremor, and ataxia. Prominent nystagmus w/horizontal gaze. Unlikely due to withdrawal since patient was intoxicated on the day symptoms presented Alcoholic w/hx of seizures (unclear whether he has a hx of DTs) CK mildly elevated to the 700s on admission Differential: cerebellar degeneration 2/2 alcohol v myopathy v ischemic injury v Wernicke's v other demyelination disorder Unfortunately, expect a continued decline in symptoms as this is likely related to chronic alcohol use and treatment options are limited to physical therapy for support Imaging Reports: 06/[address]: 1 cm hypodensity in the central yue which may be an old lacunar infarct. 06/17 Brain MRI: There is a suspected remote lacunar infarct in the posterior aspect of the yue measuring up to about 11 mm in length and 7 mm in AP diameter. No recent infarct is identified on the diffusion weighted images. There is no mass effect or midline shift. No hydrocephalus. No intracranial edema identified. Pituitary is normal size. 06/17 Echo - normal ejection fraction, mild tricuspid regurgitation 06/16 CXR negative for malignancy, infection, or mass On CIWA protocol and Rally pack, see below for plan B12 and folate elevated and patient denies numbness or tingling in the extremities, CK downtrending 560 from 666 on today - no concern for vitamin deficiency or acute myopathy at this time Con't neurochecks and cardiac tele for now PT consulted for assessment: believed patient's unsteadiness to be related to alcohol withdrawal, noted a right tilt. Will need to be reconsulted in the future for reassessment, as alcohol withdrawal does not explain clinical picture MRA Brain pending for today per stroke work-up protocol; also will assess for ischemia related to vertebrobasilar insufficiency v structural anomalies (2) Syncope ICD Codes: R55 - Syncope and collapse Status: Resolved Plan: See above plan (3) History of stroke ICD Codes: Z86.73 - Personal history of transient ischemic attack (TIA), and cerebral infarction without residual deficits Plan: Seen per MRI brain on 06/17 showed 11 mm x 7 mm lacunar infarct in the posterior aspect of the yue Lipid panel was normal, ASCVD risk is 7.5% 10 year risk of cardiovascular event , moderate intensity statin recommended, will leave decision to PCP upon discharge Add daily aspirin 81 mg, will increase to 162 mg today, 06/19, per Dr. Campbell's recommendations (4) Alcohol abuse ICD Codes: F10.10 - Alcohol abuse, uncomplicated Status: Acute Plan: On CIWA protocol, CIWA scores overnight were 26-38. Received 22 mg of Ativan. Hx of seizures and likely DTs related to withdrawal Standing orders of 2 mg IV Ativan Q6/Q4H Increased Librium to 100mg BID per Dr. Campbell's recommendations as patient has needed increasing amounts of Ativan. Continue Rally pack (5) Atrial fibrillation with RVR ICD Codes: I48.91 - Unspecified atrial fibrillation Status: Acute Plan: Echo w/normal ejection fracture and mild TR Metoprolol 25 BID for rate control Not chronically on anticoagulation. 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 CHADS-VASc score of 2 with a stroke risk of 2.2% per year and 2.9% risk of stroke/TIA/systemic embolism May require anticoagulation, neuro consulted. Will need follow-up w/cardiology after d/c (6) Transaminitis ICD Codes: R74.0 - Nonspecific elevation of levels of transaminase and lactic acid dehydrogenase [LDH] Status: Acute Plan: 2/2 alcohol intoxication Downtrending Con't IVF @ maintenance (7) Thrombocytopenia ICD Codes: D69.6 - Thrombocytopenia, unspecified Status: Acute Plan: Likely 2/2 chronic alcohol abuse No active bleeding at this time Monitor CBC daily (8) Leukocytopenia ICD Codes: D72.819 - Decreased white blood cell count, unspecified Plan: Likely related to alcoholism. Monitor w/daily CBC (9) FEN Plan: Fluids: maintenance Electrolytes: not indicated Nutrition: NPO DVT prophy: SCDs, Lovanox-renally dosed (Tania Lawrence MD R1) Tania Lawrence MD R1 Jun 19, 2017 10:29 Bobbi Sharif MD Jun 19, 2017 16:38
[2017-06-19 14:29] LABS: HEPARIN INDUCED PLATELET AB NEGATIVE (NEGATIVE)
--- NOTE | 2017-06-19 18:59 | HHI.CCPN ---
Subjective Remarks/Hospital Course 06/18: 62-year-old male with a medical history significant for alcohol abuse who was admitted on 06/16/2017. Patient reportedly drank alcohol when to get groceries and then while walking to the car felt off balance and fell and was unable to get up. [facility] was called by bystanders and patient was brought to the ER. Reportedly there was no history of witnessed seizures tongue biting or urinary incontinence. Patient had A. fib with RVR on arrival and received Cardizem 20 mg IV and subsequently had a head CT which showed a hypodense lesion in the posterior yue which look like old ischemic infarct. Patient was admitted by family medicine service. He was also noted to be ataxic. MRI brain revealed old ischemic infarct in the region of upper yue posteriorly. Patient has a history of significant alcohol abuse drinking 6-10 shots of vodka daily and has a history of A. fib though does not have regular follow-up. He did undergo cardiac ablation 5 years ago per documentation. His home medications list atenolol and aspirin 81 mg daily however has not been on anticoagulation. Patient was placed on alcohol withdrawal protocol on the floor however today he got extremely agitated with hallucinations and was taking at the nursing staff. Critical care consult was requested for worsening alcohol withdrawal. I evaluated the patient at the bedside. He had just received 4 mg of Ativan IV prior to my arrival. He was still awake and alert at the time with occasional tremors noted in right upper extremity which were coarse. He knew he was at the hospital and was following commands appropriately though stated that he was angry and wanted to go home. He received 4 more milligrams of IV Ativan and 5 mg of Haldol IV to control his anxiety/restlessness/agitation and was awaiting transfer to the ICU. He was tachycardic with heart rate 120s atrial fibrillation at the time of my arrival however with additional sedation his heart rate came down to the 90s. He was maintaining his blood pressure and O2 sats. History was obtained by reviewing records and discussion with Dr. Bello- family therapist. 06/19: Drowsy at the time of my evaluation this morning, easily arousable. Not in any acute distress. Hallucinating off and on per nursing staff. Wants to eat. Objective Vital Signs Date Time Temp Pulse Resp B/P (MAP) Pulse Ox O2 Delivery O2 Flow Rate FiO2 06/19/17 18:00 82 06/19/17 16:00 98.5 15 160/103 (122) 100 06/19/17 16:00 Nasal Cannula 2.00 06/19/17 00:00 21 Intake and Output 06/19/17 06/19/17 06/20/17 08:00 16:00 00:00 Intake Total 300 ml Output Total 1300 ml Balance -1000 ml Result Diagram: 06/19/17 0408 06/19/17 0408 Imaging Last Impressions Brain MRI 06/17/17 0000 Signed Impressions: Service Date/Time: Saturday, June 17, 2017 13:31 - CONCLUSION: 1. 11 mm x 7 mm lacunar infarct in the posterior aspect of the yue. No acute findings. Diogenes Aquino MD Head CT [id number]/16/[id number] Signed Impressions: Service Date/Time: Friday, June 16, 2017 12:18 - CONCLUSION: 1 cm hypodensity in the central yue which may be an old lacunar infarct. This could be further characterized with MRI if clinically indicated.. Todd Verde MD Chest X-Ray [id number] Signed Impressions: Service Date/Time: Friday, June 16, 2017 12:43 - CONCLUSION: No acute disease. Mild scarring is again noted the right lung base. Carlito Head MD Objective Remarks HEENT/Neuro: No pallor or icterus, tongue moist, WOOD, drowsy, easily arousable , knows he is in the hospital, not very cooperative, moving all 4 extremities. Neck: No JVD Chest/pulmonary: CTA bilaterally Cardiovascular: S1-S2 regular no gallop or murmur GI/abdomen: Soft, nontender, bowel sounds present Extremities: Warm bilaterally, no edema. Abrasions over his shins noted. 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 Continue CIWA protocol, thiamine/MVI/folic acid per protocol. EEG done on 06/18 did not reveal any seizure activity however was abnormal.. MRI brain with evidence of old ischemic infarct in the yue. Ataxia appears to be relatively new. Check MMA and folic acid levels to evaluate for functional B- 12 and folic acid deficiency. Neurology consult requested for further stroke workup as well as evaluation of ataxia and altered mental status. Librium PO added on 07/02 for ETOH withdrawal. Cardiovascular: IV hydration with normal saline. Watch for hypotension. Continue beta deepali for rate control for A. fib. Aspirin increased to 162 mg daily. May require full anticoagulation in view of previous evidence of ischemic range stem infarct and history of A. fib. Awaiting neurology evaluation. Pulmonary: Protecting airway currently. Continue supplemental O2 as needed. GI/liver: LFTs improving. By mouth diet as tolerated. Renal/: IV hydration, strict intake output, monitor and replete electrolytes, follow BUN/creatinine. ID: No indication for antibiotics at this time. Heme: Follow CBC. Pre-existing thrombocytopenia from EtOH bone marrow suppression. Worsening thrombocytopenia noted. Hold Lovenox, check HIT screen. Awaiting MMA and homocysteine levels to evaluate for macrocytosis. Endocrine: Watch for hyperglycemia, SSI for glycemic control if needed. Prophylaxis: SCDs. No indication for GI prophylaxis at this time. Discussed with [employer], D/W family medicine residents earlier. Critical care will continue to follow. Bruce Campbell MD Jun 19, 2017 18:59
[2017-06-20] VITALS (20 sets, daily range): BP systolic 121–146; BP diastolic 74–83; PULSE 74–129; RESP 0–18; TEMP 97.7–98.5; O2SAT 97–100
[2017-06-20] MEDS: LORazepam 2 MG/ML VIAL IV PUSH PRN ×14 (00:07→15:44)
[2017-06-20] MEDS: SODIUM CHLOR 0.9% 1000 ML INJ 1,000 ML IV SCH ×4 (00:08→23:00)
[2017-06-20] MEDS: HALOPERIDOL LACTATE 5 MG/ML AMP IV PRN ×4 (00:42→15:44)
[2017-06-20] MEDS: LORazepam 2 MG/ML VIAL IV PUSH SCH ×4 (00:42→19:45)
[2017-06-20] MEDS: METOPROLOL TARTRATE 5 MG/5 ML VIAL IV PUSH SCH ×4 (03:24→21:07)
[2017-06-20] MEDS: CHLORHEXIDINE GLUCONATE 2 % 1 PACK (2 CLOTHS)(taper/protocol) TOPICAL SCH (03:25)
[2017-06-20 04:08] LABS: HEMATOCRIT 41.1 % (39.0-51.0); HEMOGLOBIN 14.1 GM/DL (13.0-17.0); MEAN CELL VOLUME 101.7 FL (80.0-100.0); MEAN CORPUSCULAR HGB CONC 34.4 % (32.0-36.0); MEAN PLATELET VOLUME 9.1 FL (7.0-11.0); PLATELET COUNT 83 TH/MM3 (150-450); RED BLOOD COUNT 4.04 MIL/MM3 (4.50-5.90); RED CELL DISTRIBUTION WIDTH 13.8 % (11.6-17.2); WHITE BLOOD COUNT 6.1 TH/MM3 (4.0-11.0)
[2017-06-20 06:08] LABS: ALBUMIN 3.3 GM/DL (3.4-5.0); AST (GOT) 60 U/L (15-37); BICARBONATE 21.8 MEQ/L (21.0-32.0); BLOOD UREA NITROGEN 7 MG/DL (7-18); CALCIUM 8.5 MG/DL (8.5-10.1); CHLORIDE 106 MEQ/L (98-107); CREATININE 0.64 MG/DL (0.60-1.30); GLOMERULAR FILTRATION RATE 126 ML/MIN (>89); GLUCOSE,RANDOM 73 MG/DL (74-106); SODIUM (NA) 142 MEQ/L (136-145)
[2017-06-20 06:14] LABS: ALKALINE PHOSPHATASE 68 U/L (45-117); ALT (GPT) 51 U/L (12-78); TOTAL BILIRUBIN ADULT 1.4 MG/DL (0.2-1.0); TOTAL PROTEIN 6.9 GM/DL (6.4-8.2)
[2017-06-20] MEDS ORDERED: POTASSIUM CHLORIDE 10 MEQ CONTROLLED RELEASE TAB PO ONE (07:15)
[2017-06-20] MEDS: chlordiazePOXIDE 25 MG CAP PO SCH ×2 (10:59→21:07)
[2017-06-20] MEDS: THIAMINE HCL 100 MG TAB PO SCH (10:59)
[2017-06-20] MEDS: ASPIRIN EC 81 MG TABEC PO SCH (10:59)
[2017-06-20] MEDS: MULTIVITAMINS/MINERALS THERAPEUTIC TAB PO SCH (11:00)
[2017-06-20] MEDS: FOLIC ACID 1 MG TAB PO SCH (11:00)
[2017-06-20] MEDS: SODIUM CHLORIDE 0.9% FLUSH 10 ML FLUSH IV FLUSH SCH ×2 (11:00→21:04)
[2017-06-20] MEDS: levETIRAcetam INJ 500 MG in SODIUM CHLORIDE 0.9% INJ 100 ML IV SCH ×2 (11:16→21:06)
[2017-06-20] MEDS: THIAMINE HCL 200 MG/2 ML VIAL IM SCH (11:16)
--- NOTE | 2017-06-20 11:19 | RADRPT ---
EXAM DATE/TIME: 06/20/2017 09:05 [facility] COMPARISON: MRI BRAIN W/O CONTRAST, June 17, 2017, 13:31. INDICATIONS : Dizziness. CVA. MEDICAL HISTORY : Carcinoma, bone. SURGICAL HISTORY : Ablasion. ENCOUNTER: Subsequent ACUITY: 4-6 days PAIN SCORE: 0/10 LOCATION: head. Please note a normal MRA of the brain does not entirely exclude the possibility of a small aneurysm, nor the possibility of distal intracranial vessel disease. TECHNIQUE: 3D time of flight MRA was performed. Source images, multiplanar STS MIP, and 3D volume MIP reconstru ctions were reviewed. FINDINGS: There is excellent visualization of the major intracranial arteries out to the second-order branch ve ssels. There is no evidence for aneurysm, vessel truncation or stenosis, and no evidence for vascula r malformation. CONCLUSION: 1. Negative examination. Homer Trevino MD on June 20, 2017 at 11:15 Board Certified Radiologist. This report was verified electronically.
--- NOTE | 2017-06-20 11:56 | HHI.FPPN ---
Subjective Remarks No acute events overnight. Patient seen and examined following his MRA. Patient is awake. Oriented to person, place, and time. Does not answer all questions appropriately however. Patient remains afebrile. CIWA scores ranging 10s-20s past 24 hours. (Param Deluca MD) Objective Vitals Vital Signs Date Time Temp Pulse Resp B/P (MAP) Pulse Ox O2 Delivery O2 Flow Rate FiO2 06/20/17 08:00 98.1 80 16 146/82 (103) 100 06/20/17 08:00 80 06/20/17 08:00 100 Nasal Cannula 2.00 06/20/17 07:40 100 Nasal Cannula 2.00 06/20/17 07:00 82 06/20/17 06:00 95 06/20/17 04:00 100 Nasal Cannula 2.00 06/20/17 04:00 83 06/20/17 04:00 98.5 83 18 133/79 (97) 100 06/20/17 02:00 107 06/20/17 00:00 98.4 82 16 121/74 (90) 100 06/20/17 00:00 82 06/20/17 00:00 100 Nasal Cannula 2.00 06/19/17 22:00 81 06/19/17 20:25 100 Nasal Cannula 2.00 06/19/17 20:00 100 Nasal Cannula 2.00 06/19/17 20:00 98.3 78 16 132/81 (98) 100 06/19/17 20:00 78 06/19/17 18:00 82 06/19/17 17:00 85 06/19/17 16:00 98.5 130 15 160/103 (122) 100 06/19/17 16:00 100 Nasal Cannula 2.00 06/19/17 16:00 130 06/19/17 15:00 117 06/19/17 14:00 135 06/19/17 13:00 80 06/19/17 12:00 146 06/19/17 12:00 98.5 146 27 144/92 (109) 86 06/19/17 12:00 100 Nasal Cannula 2.00 I/O 06/19/17 06/19/17 06/19/17 06/20/17 06/20/17 06/20/17 07:00 15:00 23:00 07:00 15:00 23:00 Intake Total 405 ml 1120 ml Output Total 1300 ml 800 ml Balance -895 ml 320 ml Intake Oral 300 ml 120 ml IV Total 105 ml 1000 ml Output Urine Total 1300 ml 800 ml # Bowel Movements 0 (Param Deluca MD) Result Diagram: 06/20/17 0248 06/20/17 0502 Objective Remarks CONSTITUTIONAL/GEN: Thin white male laying in bed in soft restraints, speaking in a low voice. EYES: conjunctiva normal, EOMI. LUNGS: clear A-P, respiratory effort is normal. CARDIOVASCULAR: Irregular rhythm without murmur or gallop. GI/ABD: soft without masses, pain, and without organomegaly. NEURO: Slight tremor of the bilateral hands noted. SKIN: color normal, no rashes noted. : stokes in place MUSC: Extremities are normal in appearance, no cyanosis or edema. Slight clubbing of fingernails noted. PSYCH/MENTAL STATUS: Alert and oriented x3 to person, place, and time. (Param Deluca MD) A/P Assessment and Plan Patient is a 62-year-old male with a past medical history of A. fib admitted for syncope and afib w/RVR. On admission, patient was tachycardic and found to be in A. fib with RVR. Patient was found to be intoxicated and subsequently placed on CIWA protocol, tele, IVF hydration, and rate control w/25 mg metoprolol BID. Discharge Planning Patient lives alone and will likely require supportive services on discharge. (Param Deluca MD) Attending Attestation Patient seen and examined. Case reviewed and discussed with the resident team. Agree with plan of care as discussed with me and documented in the resident note. still needing high doses of benzos and not clear mentally (Julianna García MD) Problem List: (1) Ataxia ICD Codes: R27.0 - Ataxia, unspecified Status: Acute Plan: Admitted after 2 episodes of syncope while walking w/groceries. Was unable to rise after fall due to balance problems Cerebellar exam abnormal: +dysmetria, intention tremor, and ataxia. Prominent nystagmus w/horizontal gaze. Unlikely due to withdrawal since patient was intoxicated on the day symptoms presented Alcoholic w/hx of seizures (unclear whether he has a hx of DTs) CK mildly elevated to the 700s on admission Differential: cerebellar degeneration 2/2 alcohol v myopathy v ischemic injury v Wernicke's v other demyelination disorder Unfortunately, expect a continued decline in symptoms as this is likely related to chronic alcohol use and treatment options are limited to physical therapy for support Imaging Reports: 06/[address]: 1 cm hypodensity in the central yue which may be an old lacunar infarct. 06/17 Brain MRI: There is a suspected remote lacunar infarct in the posterior aspect of the yue measuring up to about 11 mm in length and 7 mm in AP diameter. No recent infarct is identified on the diffusion weighted images. There is no mass effect or midline shift. No hydrocephalus. No intracranial edema identified. Pituitary is normal size. 06/17 Echo - normal ejection fraction, mild tricuspid regurgitation 06/16 CXR negative for malignancy, infection, or mass 06/20 Head MRA negative On CIWA protocol and Rally pack, see below for plan B12 and folate elevated and patient denies numbness or tingling in the extremities, CK downtrending 560 from 666 on today - no concern for vitamin deficiency or acute myopathy at this time Con't neurochecks and cardiac tele for now PT consulted for assessment: believed patient's unsteadiness to be related to alcohol withdrawal, noted a right tilt. Will need to be reconsulted in the future for reassessment, as alcohol withdrawal does not explain clinical picture (2) Syncope ICD Codes: R55 - Syncope and collapse Status: Resolved Plan: See above plan (3) History of stroke ICD Codes: Z86.73 - Personal history of transient ischemic attack (TIA), and cerebral infarction without residual deficits Plan: Seen per MRI brain on 06/17 showed 11 mm x 7 mm lacunar infarct in the posterior aspect of the yue Lipid panel was normal, ASCVD risk is 7.5% 10 year risk of cardiovascular event , moderate intensity statin recommended, will leave decision to PCP upon discharge Continue aspirin 162 mg daily (4) Alcohol abuse ICD Codes: F10.10 - Alcohol abuse, uncomplicated Status: Acute Plan: On CIWA protocol, CIWA scores improving Hx of seizures and likely DTs related to withdrawal Standing orders of 2 mg IV Ativan Q6/Q4H Continue Librium to 100mg BID Continue Rally pack (5) Atrial fibrillation with RVR ICD Codes: I48.91 - Unspecified atrial fibrillation Status: Acute Plan: Echo w/normal ejection fracture and mild TR Metoprolol 25 BID for rate control Not chronically on anticoagulation. 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 CHADS-VASc score of 2 with a stroke risk of 2.2% per year and 2.9% risk of stroke/TIA/systemic embolism May require anticoagulation, neuro consulted. Will need follow-up w/cardiology after d/c (6) Transaminitis ICD Codes: R74.0 - Nonspecific elevation of levels of transaminase and lactic acid dehydrogenase [LDH] Status: Acute Plan: 2/2 alcohol intoxication Downtrending Con't IVF @ maintenance (7) Thrombocytopenia ICD Codes: D69.6 - Thrombocytopenia, unspecified Status: Acute Plan: Likely 2/2 chronic alcohol abuse No active bleeding at this time Monitor CBC daily (8) Leukocytopenia ICD Codes: D72.819 - Decreased white blood cell count, unspecified Plan: Likely related to alcoholism. Monitor w/daily CBC (9) FEN Plan: Fluids: maintenance Electrolytes: continue to monitor, replete as needed Nutrition: Regular DVT ppx: SCDs (Param Deluca MD) Param Deluca MD Jun 20, 2017 11:56 Julianna García MD Jun 21, 2017 16:46
--- NOTE | 2017-06-20 17:34 | HHI.CCPN ---
Subjective Remarks/Hospital Course 06/18: 62-year-old male with a medical history significant for alcohol abuse who was admitted on 06/16/2017. Patient reportedly drank alcohol when to get groceries and then while walking to the car felt off balance and fell and was unable to get up. [facility] was called by bystanders and patient was brought to the ER. Reportedly there was no history of witnessed seizures tongue biting or urinary incontinence. Patient had A. fib with RVR on arrival and received Cardizem 20 mg IV and subsequently had a head CT which showed a hypodense lesion in the posterior yue which look like old ischemic infarct. Patient was admitted by family medicine service. He was also noted to be ataxic. MRI brain revealed old ischemic infarct in the region of upper yue posteriorly. Patient has a history of significant alcohol abuse drinking 6-10 shots of vodka daily and has a history of A. fib though does not have regular follow-up. He did undergo cardiac ablation 5 years ago per documentation. His home medications list atenolol and aspirin 81 mg daily however has not been on anticoagulation. Patient was placed on alcohol withdrawal protocol on the floor however today he got extremely agitated with hallucinations and was taking at the nursing staff. Critical care consult was requested for worsening alcohol withdrawal. I evaluated the patient at the bedside. He had just received 4 mg of Ativan IV prior to my arrival. He was still awake and alert at the time with occasional tremors noted in right upper extremity which were coarse. He knew he was at the hospital and was following commands appropriately though stated that he was angry and wanted to go home. He received 4 more milligrams of IV Ativan and 5 mg of Haldol IV to control his anxiety/restlessness/agitation and was awaiting transfer to the ICU. He was tachycardic with heart rate 120s atrial fibrillation at the time of my arrival however with additional sedation his heart rate came down to the 90s. He was maintaining his blood pressure and O2 sats. History was obtained by reviewing records and discussion with Dr. Bello- family reunification specialist. 4/2: Drowsy at the time of my evaluation this morning, easily arousable. Not in any acute distress. Hallucinating off and on per nursing staff. Wants to eat. /3: Afebrile. The patient continues to be lethargic, easily arousable. Patient continues to have a poor appetite, normal saline glucose blood levels low normal. Objective Vital Signs Date Time Temp Pulse Resp B/P (MAP) Pulse Ox O2 Delivery O2 Flow Rate FiO2 06/20/17 12:00 100 Nasal Cannula 2.00 06/20/17 12:00 109 06/20/17 08:00 98.1 16 146/82 (103) 06/19/17 00:00 21 Intake and Output 06/20/17 06/20/17 06/21/17 08:00 16:00 00:00 Intake Total 1120 ml Output Total 800 ml Balance 320 ml Result Diagram: 06/20/17 0248 06/20/17 0502 Imaging Last Impressions Head Magnetic Resonance Angiography 06/20/17 0000 Signed Impressions: Service Date/Time: Tuesday, June 20, 2017 09:05 - CONCLUSION: 1. Negative examination. Homer Trevino MD Brain MRI 06/17/17 0000 Signed Impressions: Service Date/Time: Saturday, June 17, 2017 13:31 - CONCLUSION: 1. 11 mm x 7 mm lacunar infarct in the posterior aspect of the yue. No acute findings. Diogenes Aquino MD Head CT 06/16/17 1157 Signed Impressions: Service Date/Time: Friday, June 16, 2017 12:18 - CONCLUSION: 1 cm hypodensity in the central yue which may be an old lacunar infarct. This could be further characterized with MRI if clinically indicated.. Todd Verde MD Chest X-Ray 06/16/17 1157 Signed Impressions: Service Date/Time: Friday, June 16, 2017 12:43 - CONCLUSION: No acute disease. Mild scarring is again noted the right lung base. Carlito Head MD Last Impressions Brain MRI 06/17/17 0000 Signed Impressions: Service Date/Time: Saturday, June 17, 2017 13:31 - CONCLUSION: 1. 11 mm x 7 mm lacunar infarct in the posterior aspect of the yue. No acute findings. Diogenes Aquino MD Head CT 06/16/17 1157 Signed Impressions: Service Date/Time: Friday, June 16, 2017 12:18 - CONCLUSION: 1 cm hypodensity in the central yue which may be an old lacunar infarct. This could be further characterized with MRI if clinically indicated.. Todd Verde MD Chest X-Ray 06/16/17 1157 Signed Impressions: Service Date/Time: Friday, June 16, 2017 12:43 - CONCLUSION: No acute disease. Mild scarring is again noted the right lung base. Carlito Head MD Objective Remarks HEENT/Neuro: No pallor or icterus, tongue moist, WOOD, drowsy, easily arousable , knows he is in the hospital, not very cooperative, moving all 4 extremities. Neck: No JVD Chest/pulmonary: CTA bilaterally Cardiovascular: S1-S2 regular no gallop or murmur GI/abdomen: Soft, nontender, bowel sounds present Extremities: Warm bilaterally, no edema. Abrasions over his shins in various stages of healing. 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 Continue CIWA protocol, thiamine/MVI/folic acid per protocol. EEG done on 06/18 did not reveal any seizure activity however was abnormal.. MRI brain with evidence of old ischemic infarct in the yue. Ataxia appears to be relatively new. Check MMA and folic acid levels to evaluate for functional B- 12 and folic acid deficiency. Neurology consult requested for further stroke workup as well as evaluation of ataxia and altered mental status. Librium PO added on 07/02 for ETOH withdrawal. Cardiovascular: IV hydration with normal saline. Watch for hypotension. Continue beta deepali for rate control for A. fib. Aspirin increased to 162 mg daily. May require full anticoagulation in view of previous evidence of ischemic range stem infarct and history of A. fib. Awaiting neurology evaluation. Pulmonary: Protecting airway currently. Continue supplemental O2 as needed. GI/liver: LFTs improving. By mouth diet as tolerated. Renal/: IV hydration, strict intake output, monitor and replete electrolytes, follow BUN/creatinine. ID: No indication for antibiotics at this time. Heme: Follow CBC. Pre-existing thrombocytopenia from EtOH bone marrow suppression. Worsening thrombocytopenia noted. Hold Lovenox, check HIT screen. Awaiting MMA and homocysteine levels to evaluate for macrocytosis. Endocrine: Watch for hyperglycemia, SSI for glycemic control if needed. Prophylaxis: SCDs. No indication for GI prophylaxis at this time. Discussed with GROUND SYSTEMS ENGINEER (Maricruz) Critical care will continue to follow. Physician Sharyn Garnica MD Jun 20, 2017 17:34
[2017-06-21] VITALS (13 sets, daily range): BP systolic 116–161; BP diastolic 67–101; PULSE 76–142; RESP 14–18; TEMP 97.3–98.3; O2SAT 95–100
[2017-06-21] MEDS: LORazepam 2 MG/ML VIAL IV PUSH SCH ×2 (01:08→06:11)
[2017-06-21] MEDS: CHLORHEXIDINE GLUCONATE 2 % 1 PACK (2 CLOTHS)(taper/protocol) TOPICAL SCH (03:42)
[2017-06-21] MEDS: METOPROLOL TARTRATE 5 MG/5 ML VIAL IV PUSH SCH ×3 (03:42→20:25)
[2017-06-21 05:53] LABS: HEMATOCRIT 39.8 % (39.0-51.0); HEMOGLOBIN 13.6 GM/DL (13.0-17.0); MEAN CELL VOLUME 102.1 FL (80.0-100.0); MEAN CORPUSCULAR HEMOGLOBIN 34.8 PG (27.0-34.0); MEAN CORPUSCULAR HGB CONC 34.1 % (32.0-36.0); MEAN PLATELET VOLUME 9.1 FL (7.0-11.0); PLATELET COUNT 104 TH/MM3 (150-450); RED CELL DISTRIBUTION WIDTH 13.8 % (11.6-17.2); WHITE BLOOD COUNT 3.9 TH/MM3 (4.0-11.0)
[2017-06-21] MEDS: SODIUM CHLOR 0.9% 1000 ML INJ 1,000 ML IV SCH (06:11)
[2017-06-21 06:20] LABS: ALBUMIN 2.9 GM/DL (3.4-5.0); ALT (GPT) 44 U/L (12-78); AST (GOT) 42 U/L (15-37); BLOOD UREA NITROGEN 10 MG/DL (7-18); CALCIUM 8.5 MG/DL (8.5-10.1); CHLORIDE 108 MEQ/L (98-107); CREATININE 0.63 MG/DL (0.60-1.30); GLOMERULAR FILTRATION RATE 129 ML/MIN (>89); GLUCOSE,RANDOM 79 MG/DL (74-106); SODIUM (NA) 145 MEQ/L (136-145)
[2017-06-21 06:23] LABS: ALKALINE PHOSPHATASE 66 U/L (45-117); TOTAL BILIRUBIN ADULT 0.9 MG/DL (0.2-1.0); TOTAL PROTEIN 6.4 GM/DL (6.4-8.2)
[2017-06-21] MEDS: levETIRAcetam INJ 500 MG in SODIUM CHLORIDE 0.9% INJ 100 ML IV SCH ×2 (09:15→20:11)
[2017-06-21] MEDS: SODIUM CHLORIDE 0.9% FLUSH 10 ML FLUSH IV FLUSH SCH ×2 (09:15→20:12)
[2017-06-21] MEDS: chlordiazePOXIDE 25 MG CAP PO SCH (09:15)
[2017-06-21] MEDS: ASPIRIN EC 81 MG TABEC PO SCH (09:15)
[2017-06-21] MEDS: THIAMINE HCL 100 MG TAB PO SCH (09:16)
[2017-06-21] MEDS: MULTIVITAMINS/MINERALS THERAPEUTIC TAB PO SCH (09:16)
[2017-06-21] MEDS: FOLIC ACID 1 MG TAB PO SCH (09:16)
--- NOTE | 2017-06-21 09:26 | HHI.CCPN ---
Subjective Remarks/Hospital Course 06/18: 62-year-old male with a medical history significant for alcohol abuse who was admitted on 06/16/2017. Patient reportedly drank alcohol when to get groceries and then while walking to the car felt off balance and fell and was unable to get up. [facility] was called by bystanders and patient was brought to the ER. Reportedly there was no history of witnessed seizures tongue biting or urinary incontinence. Patient had A. fib with RVR on arrival and received Cardizem 20 mg IV and subsequently had a head CT which showed a hypodense lesion in the posterior yue which look like old ischemic infarct. Patient was admitted by family medicine service. He was also noted to be ataxic. MRI brain revealed old ischemic infarct in the region of upper yue posteriorly. Patient has a history of significant alcohol abuse drinking 6-10 shots of vodka daily and has a history of A. fib though does not have regular follow-up. He did undergo cardiac ablation 5 years ago per documentation. His home medications list atenolol and aspirin 81 mg daily however has not been on anticoagulation. Patient was placed on alcohol withdrawal protocol on the floor however today he got extremely agitated with hallucinations and was taking at the nursing staff. Critical care consult was requested for worsening alcohol withdrawal. I evaluated the patient at the bedside. He had just received 4 mg of Ativan IV prior to my arrival. He was still awake and alert at the time with occasional tremors noted in right upper extremity which were coarse. He knew he was at the hospital and was following commands appropriately though stated that he was angry and wanted to go home. He received 4 more milligrams of IV Ativan and 5 mg of Haldol IV to control his anxiety/restlessness/agitation and was awaiting transfer to the ICU. He was tachycardic with heart rate 120s atrial fibrillation at the time of my arrival however with additional sedation his heart rate came down to the 90s. He was maintaining his blood pressure and O2 sats. History was obtained by reviewing records and discussion with Dr. Bello- family law attorney. 4/2: Drowsy at the time of my evaluation this morning, easily arousable. Not in any acute distress. Hallucinating off and on per nursing staff. Wants to eat. /3: Afebrile. The patient continues to be lethargic, easily arousable. Patient continues to have a poor appetite, normal saline glucose blood levels low normal. 06/21: No acute events overnight. Patient poorly tolerating PO diet. Patient extremely lethargic this a.m., scheduled doses of Ativan 2 mg every 6 hours placed on hold. Patient oriented to name and place. Continued restraints for patient safety. Objective Vital Signs Date Time Temp Pulse Resp B/P (MAP) Pulse Ox O2 Delivery O2 Flow Rate FiO2 06/21/17 08:13 100 Nasal Cannula 2.00 06/21/17 06:00 124 06/21/17 04:00 97.8 16 146/93 (110) 06/19/17 00:00 21 Intake and Output 06/21/17 06/21/17 06/22/17 08:00 16:00 00:00 Intake Total 1240 ml Output Total 600 ml Balance 640 ml Result Diagram: 06/21/17 0516 06/21/17 0516 Imaging Last Impressions Head Magnetic Resonance Angiography 06/20/17 0000 Signed Impressions: Service Date/Time: Tuesday, June 20, 2017 09:05 - CONCLUSION: 1. Negative examination. Homer Trevino MD Brain MRI 06/17/17 0000 Signed Impressions: Service Date/Time: Saturday, June 17, 2017 13:31 - CONCLUSION: 1. 11 mm x 7 mm lacunar infarct in the posterior aspect of the yue. No acute findings. Diogenes Aquino MD Head CT 06/16/17 1157 Signed Impressions: Service Date/Time: Friday, June 16, 2017 12:18 - CONCLUSION: 1 cm hypodensity in the central yue which may be an old lacunar infarct. This could be further characterized with MRI if clinically indicated.. Todd Verde MD Chest X-Ray 06/16/17 1157 Signed Impressions: Service Date/Time: Friday, June 16, 2017 12:43 - CONCLUSION: No acute disease. Mild scarring is again noted the right lung base. Carlito Head MD Last Impressions Brain MRI 06/17/17 0000 Signed Impressions: Service Date/Time: Saturday, June 17, 2017 13:31 - CONCLUSION: 1. 11 mm x 7 mm lacunar infarct in the posterior aspect of the yue. No acute findings. Diogenes Aquino MD Head CT 06/16/17 1157 Signed Impressions: Service Date/Time: Friday, June 16, 2017 12:18 - CONCLUSION: 1 cm hypodensity in the central yue which may be an old lacunar infarct. This could be further characterized with MRI if clinically indicated.. Todd Verde MD Chest X-Ray 06/16/17 1157 Signed Impressions: Service Date/Time: Friday, June 16, 2017 12:43 - CONCLUSION: No acute disease. Mild scarring is again noted the right lung base. Carlito Head MD Objective Remarks HEENT/Neuro: No pallor or icterus, tongue moist, WOOD, extremely lethargic, oriented to name and place not very cooperative, moving all 4 extremities. Refuses to open eyes upon commands. Neck: No JVD Chest/pulmonary: CTA bilaterally Cardiovascular: S1-S2 regular no gallop or murmur GI/abdomen: Soft, nontender, bowel sounds present Extremities: Warm bilaterally, no edema. Abrasions over his shins in various stages of healing. 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 Continue CIWA protocol, thiamine/MVI/folic acid per protocol. EEG done on 06/18 did not reveal any seizure activity however was abnormal.. MRI brain with evidence of old ischemic infarct in the yue. Ataxia appears to be relatively new. Check MMA and folic acid levels to evaluate for functional B- 12 and folic acid deficiency. Neurology consult requested for further stroke workup as well as evaluation of ataxia and altered mental status. Librium PO added on 06/18 for ETOH withdrawal, 100 mg BID Cardiovascular: IV hydration with normal saline. Watch for hypotension. Continue beta deepali for rate control for A. fib. Aspirin increased to 162 mg daily. May require full anticoagulation in view of previous evidence of ischemic range stem infarct and history of A. fib. Awaiting neurology evaluation. Pulmonary: Protecting airway currently. Continue supplemental O2 as needed. GI/liver: LFTs improving. By mouth diet as tolerated. Renal/: IV hydration, strict intake output, monitor and replete electrolytes, follow BUN/creatinine. ID: No indication for antibiotics at this time. Heme: Follow CBC. Pre-existing thrombocytopenia from EtOH bone marrow suppression. Platelet count improved. begin Lovenox, HIT panel negative. Awaiting MMA . Homocysteine levels to evaluate for macrocytosis are WNL Endocrine: Watch for hyperglycemia, SSI for glycemic control if needed. Prophylaxis: SCDs. Lovenox. No indication for GI prophylaxis at this time. Discussed with ROVING INSPECTOR (Destinee ) Level 2 Critical care will continue to follow. Physician Sharyn Garnica MD Jun 21, 2017 09:26
[2017-06-21] MEDS ORDERED: MAGNESIUM SULFATE 1 GM PREMIX 100 ML IV ONE (10:00)
[2017-06-21] MEDS: NS + KCL 40 MEQ INJ 1,000 ML IV SCH ×2 (12:17→20:27)
[2017-06-21] MEDS: ENOXAPARIN SODIUM 30 MG/0.3 ML SYRINGE SQ SCH (12:17)
--- NOTE | 2017-06-21 16:17 | HHI.FPPN ---
Subjective Remarks Patient seen and examined this afternoon. He states that he is doing okay. He notices that he still has tremors especially in his left hand. No chest pain, shortness of breath, no abdominal pain, no nausea vomiting, no fevers or chills. Is concerned because his rent is due and he needs to pay before Monday, the . He lives at a local motel. (Tania Lawrence MD R1) Objective Vitals Vital Signs Date Time Temp Pulse Resp B/P (MAP) Pulse Ox O2 Delivery O2 Flow Rate FiO2 06/21/17 12:00 100 Nasal Cannula 2.00 06/21/17 12:00 97.3 76 131/77 (95) 100 06/21/17 12:00 76 06/21/17 10:00 101 06/21/17 08:13 100 Nasal Cannula 2.00 06/21/17 08:00 100 Nasal Cannula 2.00 06/21/17 08:00 97.8 88 155/90 (111) 95 06/21/17 08:00 88 06/21/17 06:00 124 06/21/17 04:00 88 06/21/17 04:00 99 Nasal Cannula 2.00 06/21/17 04:00 97.8 88 16 146/93 (110) 99 06/21/17 02:00 78 06/21/17 00:00 100 Nasal Cannula 2.00 06/21/17 00:00 79 06/21/17 00:00 97.9 79 14 116/67 (83) 100 06/20/17 22:00 108 06/20/17 20:00 78 06/20/17 20:00 100 Nasal Cannula 2.00 06/20/17 20:00 97.7 78 0 129/83 (98) 100 06/20/17 19:03 100 Nasal Cannula 2.00 06/20/17 18:00 74 06/20/17 17:00 75 I/O 06/20/17 06/20/17 06/20/17 06/21/17 06/21/17 06/21/17 07:00 15:00 23:00 07:00 15:00 23:00 Intake Total 1120 ml 105 ml 2705 ml 1240 ml Output Total 800 ml 1000 ml 600 ml Balance 320 ml 105 ml 1705 ml 640 ml Intake Oral 120 ml 600 ml 240 ml IV Total 1000 ml 105 ml 2105 ml 1000 ml Output Urine Total 800 ml 1000 ml 600 ml # Voids 2 # Bowel Movements 0 0 (Tania Lawrence MD R1) Result Diagram: 06/21/17 0516 06/21/17 0516 Imaging Last Impressions Head Magnetic Resonance Angiography 06/20/17 0000 Signed Impressions: Service Date/Time: Tuesday, June 20, 2017 09:05 - CONCLUSION: 1. Negative examination. Homer Trevino MD Brain MRI 06/17/17 0000 Signed Impressions: Service Date/Time: Saturday, June 17, 2017 13:31 - CONCLUSION: 1. 11 mm x 7 mm lacunar infarct in the posterior aspect of the yue. No acute findings. Diogenes Aquino MD Head CT 06/16/[id number] Signed Impressions: Service Date/Time: Friday, June 16, 2017 12:18 - CONCLUSION: 1 cm hypodensity in the central yue which may be an old lacunar infarct. This could be further characterized with MRI if clinically indicated.. Todd Verde MD Chest X-Ray 06/16/17 1157 Signed Impressions: Service Date/Time: Friday, June 16, 2017 12:43 - CONCLUSION: No acute disease. Mild scarring is again noted the right lung base. Carlito Head MD Objective Remarks CONSTITUTIONAL/GEN: Thin white male laying in bed in soft restraints but not attached to bed, speaking in a low voice. EYES: conjunctiva normal, EOMI. LUNGS: clear A-P, respiratory effort is normal. CARDIOVASCULAR: Irregular rhythm without murmur or gallop. GI/ABD: soft without masses, pain, and without organomegaly. NEURO: Slight tremor of the bilateral hands noted. SKIN: color normal, no rashes noted. : stokes in place MUSC: Extremities are normal in appearance, no cyanosis or edema. Slight clubbing of fingernails noted. PSYCH/MENTAL STATUS: Alert and oriented x3 to person, place, and time. (Tania Lawrence MD R1) A/P Assessment and Plan Patient is a 62-year-old male with a past medical history of A. fib admitted for syncope and afib w/RVR. On admission, patient was tachycardic and found to be in A. fib with RVR. Patient was found to be intoxicated and subsequently placed on CIWA protocol, tele, IVF hydration, and rate control w/25 mg metoprolol BID. Discharge Planning Patient lives alone and will likely require supportive services on discharge. (Tania Lawrence MD R1) Attending Attestation Patient seen and examined. Case reviewed and discussed with the resident team. Agree with plan of care as discussed with me and documented in the resident note. he is much clearer mentally today. will begin cutting librium as it has such a long half life. will also work on rate control a bit more as he went into a rate of 140 in a fib while we were seeing him. will watch for bradycardia but will start shorter acting Cardizem (Julianna García MD) Problem List: (1) Ataxia ICD Codes: R27.0 - Ataxia, unspecified Status: Acute Plan: Admitted after 2 episodes of syncope while walking w/groceries. Was unable to rise after fall due to balance problems Cerebellar exam abnormal: +dysmetria, intention tremor, and ataxia. Prominent nystagmus w/horizontal gaze. Unlikely due to withdrawal since patient was intoxicated on the day symptoms presented Alcoholic w/hx of seizures (unclear whether he has a hx of DTs) CK mildly elevated to the 700s on admission Differential: cerebellar degeneration 2/2 alcohol v myopathy v ischemic injury v Wernicke's v other demyelination disorder Unfortunately, expect a continued decline in symptoms as this is likely related to chronic alcohol use and treatment options are limited to physical therapy for support Imaging Reports: 06/[address]: 1 cm hypodensity in the central yue which may be an old lacunar infarct. 06/17 Brain MRI: There is a suspected remote lacunar infarct in the posterior aspect of the yue measuring up to about 11 mm in length and 7 mm in AP diameter. No recent infarct is identified on the diffusion weighted images. There is no mass effect or midline shift. No hydrocephalus. No intracranial edema identified. Pituitary is normal size. 06/17 Echo - normal ejection fraction, mild tricuspid regurgitation 06/16 CXR negative for malignancy, infection, or mass 06/20 Head MRA negative On CIWA protocol and Rally pack, see below for plan B12 and folate elevated and patient denies numbness or tingling in the extremities, CK downtrending - no concern for vitamin deficiency or acute myopathy at this time Con't neurochecks and cardiac tele for now PT consulted for assessment: believed patient's unsteadiness to be related to alcohol withdrawal, noted a right tilt. Will need to be reconsulted in the future for reassessment, as alcohol withdrawal does not explain clinical picture (2) Syncope ICD Codes: R55 - Syncope and collapse Status: Resolved Plan: See above plan (3) Alcohol abuse ICD Codes: F10.10 - Alcohol abuse, uncomplicated Status: Acute Plan: On CIWA protocol, CIWA scores improving Hx of seizures and likely DTs related to withdrawal Standing orders of 2 mg IV Ativan Q6/Q4H Decrease Librium to 50mg BID Continue Rally pack (4) Atrial fibrillation with RVR ICD Codes: I48.91 - Unspecified atrial fibrillation Status: Acute Plan: Echo w/normal ejection fracture and mild TR Metoprolol 25 BID for rate control Adding Cardizem 60mg po q6h for further control, will monitor rate closely Not chronically on anticoagulation. 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 CHADS-VASc score of 2 with a stroke risk of 2.2% per year and 2.9% risk of stroke/TIA/systemic embolism May require anticoagulation, neuro consulted. Will need follow-up w/cardiology after d/c (5) History of stroke ICD Codes: Z86.73 - Personal history of transient ischemic attack (TIA), and cerebral infarction without residual deficits Plan: Seen per MRI brain on 06/17 showed 11 mm x 7 mm lacunar infarct in the posterior aspect of the yue Lipid panel was normal, ASCVD risk is 7.5% 10 year risk of cardiovascular event , moderate intensity statin recommended, will leave decision to PCP upon discharge Continue aspirin 162 mg daily (6) Transaminitis ICD Codes: R74.0 - Nonspecific elevation of levels of transaminase and lactic acid dehydrogenase [LDH] Status: Acute Plan: 2/2 alcohol intoxication Downtrending Con't IVF @ maintenance (7) Thrombocytopenia ICD Codes: D69.6 - Thrombocytopenia, unspecified Status: Acute Plan: Likely 2/2 chronic alcohol abuse No active bleeding at this time Monitor CBC daily (8) Leukocytopenia ICD Codes: D72.819 - Decreased white blood cell count, unspecified Plan: Likely related to alcoholism. Monitor w/daily CBC (9) FEN Plan: Fluids: maintenance Electrolytes: continue to monitor, replete as needed Nutrition: Regular DVT ppx: SCDs (Tania Lawrence MD R1) Problem List: (1) Ataxia ICD Codes: R27.0 - Ataxia, unspecified Status: Acute Plan: Admitted after 2 episodes of syncope while walking w/groceries. Was unable to rise after fall due to balance problems Cerebellar exam abnormal: +dysmetria, intention tremor, and ataxia. Prominent nystagmus w/horizontal gaze. Unlikely due to withdrawal since patient was intoxicated on the day symptoms presented Alcoholic w/hx of seizures (unclear whether he has a hx of DTs) CK mildly elevated to the 700s on admission Differential: cerebellar degeneration 2/ alcohol v myopathy v ischemic injury v Wernicke's v other demyelination disorder Unfortunately, expect a continued decline in symptoms as this is likely related to chronic alcohol use and treatment options are limited to physical therapy for support Imaging Reports: 06/[address]: 1 cm hypodensity in the central yue which may be an old lacunar infarct. 06/17 Brain MRI: There is a suspected remote lacunar infarct in the posterior aspect of the yue measuring up to about 11 mm in length and 7 mm in AP diameter. No recent infarct is identified on the diffusion weighted images. There is no mass effect or midline shift. No hydrocephalus. No intracranial edema identified. Pituitary is normal size. 06/17 Echo - normal ejection fraction, mild tricuspid regurgitation 06/16 CXR negative for malignancy, infection, or mass 06/20 Head MRA negative On CIWA protocol and Rally pack, see below for plan B12 and folate elevated and patient denies numbness or tingling in the extremities, CK downtrending - no concern for vitamin deficiency or acute myopathy at this time Con't neurochecks and cardiac tele for now PT consulted for assessment: believed patient's unsteadiness to be related to alcohol withdrawal, noted a right tilt. Will need to be reconsulted in the future for reassessment, as alcohol withdrawal does not explain clinical picture (2) Syncope ICD Codes: R55 - Syncope and collapse Status: Resolved Plan: See above plan (3) Alcohol abuse ICD Codes: F10.10 - Alcohol abuse, uncomplicated Status: Acute Plan: On CIWA protocol, CIWA scores improving Hx of seizures and likely DTs related to withdrawal Standing orders of 2 mg IV Ativan Q6/Q4H Decrease Librium to 50mg BID Continue Rally pack (4) Atrial fibrillation with RVR ICD Codes: I48.91 - Unspecified atrial fibrillation Status: Acute Plan: Echo w/normal ejection fracture and mild TR Metoprolol 25 BID for rate control Adding Cardizem 60mg po q6h for further control, will monitor rate closely Not chronically on anticoagulation. 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 CHADS-VASc score of 2 with a stroke risk of 2.2% per year and 2.9% risk of stroke/TIA/systemic embolism May require anticoagulation, neuro consulted. Will need follow-up w/cardiology after d/c (5) History of stroke ICD Codes: Z86.73 - Personal history of transient ischemic attack (TIA), and cerebral infarction without residual deficits Plan: Seen per MRI brain on 06/17 showed 11 mm x 7 mm lacunar infarct in the posterior aspect of the yue Lipid panel was normal, ASCVD risk is 7.5% 10 year risk of cardiovascular event , moderate intensity statin recommended, will leave decision to PCP upon discharge Continue aspirin 162 mg daily (6) Transaminitis ICD Codes: R74.0 - Nonspecific elevation of levels of transaminase and lactic acid dehydrogenase [LDH] Status: Acute Plan: 2/2 alcohol intoxication Downtrending Con't IVF @ maintenance (7) Thrombocytopenia ICD Codes: D69.6 - Thrombocytopenia, unspecified Status: Acute Plan: Likely 2/2 chronic alcohol abuse No active bleeding at this time Monitor CBC daily (8) Leukocytopenia ICD Codes: D72.819 - Decreased white blood cell count, unspecified Plan: Likely related to alcoholism. Monitor w/daily CBC (9) FEN Plan: Fluids: maintenance Electrolytes: continue to monitor, replete as needed Nutrition: Regular DVT ppx: SCDs (Julianna García MD) Tania Lawrence MD R1 Jun 21, 2017 16:17 Julianna García MD Jun 21, 2017 16:49
[2017-06-21] MEDS: DILTIAZEM HCL 60 MG TAB PO SCH ×2 (18:24→18:27)
[2017-06-21] MEDS: METOPROLOL TARTRATE 25 MG TAB PO SCH (20:11)
[2017-06-21] MEDS ORDERED: chlordiazePOXIDE 25 MG CAP PO SCH (21:00)
[2017-06-22] VITALS (10 sets, daily range): BP systolic 116–163; BP diastolic 55–94; PULSE 64–103; RESP 11–39; TEMP 97.6–98.4; O2SAT 89–99
[2017-06-22] MEDS: DILTIAZEM HCL 60 MG TAB PO SCH ×4 (00:28→18:00)
[2017-06-22] MEDS: METOPROLOL TARTRATE 5 MG/5 ML VIAL IV PUSH SCH (03:00)
[2017-06-22] MEDS: CHLORHEXIDINE GLUCONATE 2 % 1 PACK (2 CLOTHS)(taper/protocol) TOPICAL SCH (04:00)
[2017-06-22 04:23] LABS: AUTOMATED NEUTROPHIL # 1.8 TH/MM3 (1.8-7.7); BASOPHIL % 1.1 % (0.0-2.0); EOSINOPHIL # 0.1 TH/MM3 (0-0.4); EOSINOPHIL % 2.7 % (0.0-4.0); HEMATOCRIT 43.4 % (39.0-51.0); HEMOGLOBIN 14.8 GM/DL (13.0-17.0); LYMPH % 22.2 % (9.0-44.0); LYMPHOCYTE # 0.9 TH/MM3 (1.0-4.8); MEAN CELL VOLUME 102.6 FL (80.0-100.0); MEAN CORPUSCULAR HGB CONC 34.1 % (32.0-36.0); MEAN PLATELET VOLUME 8.4 FL (7.0-11.0); MONO % 28.4 % (0.0-8.0); MONOCYTE # 1.2 TH/MM3 (0-0.9); NEUT % 45.6 % (16.0-70.0); PLATELET COUNT 137 TH/MM3 (150-450); RED BLOOD COUNT 4.23 MIL/MM3 (4.50-5.90); RED CELL DISTRIBUTION WIDTH 13.6 % (11.6-17.2); WHITE BLOOD COUNT 4.1 TH/MM3 (4.0-11.0)
[2017-06-22 04:56] LABS: ALBUMIN 3.2 GM/DL (3.4-5.0); ALT (GPT) 41 U/L (12-78); AST (GOT) 37 U/L (15-37); BICARBONATE 27.2 MEQ/L (21.0-32.0); BLOOD UREA NITROGEN 9 MG/DL (7-18); CALCIUM 8.9 MG/DL (8.5-10.1); CHLORIDE 107 MEQ/L (98-107); CREATININE 0.68 MG/DL (0.60-1.30); GLOMERULAR FILTRATION RATE 118 ML/MIN (>89); GLUCOSE,RANDOM 88 MG/DL (74-106); SODIUM (NA) 143 MEQ/L (136-145)
[2017-06-22 04:59] LABS: ALKALINE PHOSPHATASE 66 U/L (45-117); TOTAL BILIRUBIN ADULT 0.8 MG/DL (0.2-1.0); TOTAL PROTEIN 6.7 GM/DL (6.4-8.2)
[2017-06-22] MEDS: NS + KCL 40 MEQ INJ 1,000 ML IV SCH ×3 (05:37→18:29)
[2017-06-22] MEDS ORDERED: POTASSIUM CHLORIDE 10 MEQ CONTROLLED RELEASE TAB PO ONE (08:30)
--- NOTE | 2017-06-22 09:07 | HHI.FPPN ---
Subjective Remarks Mr Wall is calm and conversant this am and out of restraints. His heart rate is fine. No bradycardia and not tach with the cardizem po. he is ready to move to the floor. he is hemodynamically stable. he has no complaints today except his left eye being stuck together though he can open it with a soft cloth. this was stuck together yesterday per his nurse Objective Vitals Vital Signs Date Time Temp Pulse Resp B/P (MAP) Pulse Ox O2 Delivery O2 Flow Rate FiO2 06/22/17 06:00 103 06/22/17 04:00 82 06/22/17 04:00 97.7 82 39 163/76 (105) 89 06/22/17 04:00 90 Nasal Cannula 2.00 06/22/17 02:00 84 06/22/17 00:00 99 Nasal Cannula 2.00 06/22/17 00:00 64 06/22/17 00:00 97.6 64 11 116/66 (83) 99 06/21/17 22:00 87 06/21/17 21:50 95 Nasal Cannula 2.00 06/21/17 20:00 100 Nasal Cannula 2.00 06/21/17 20:00 139 06/21/17 20:00 97.7 139 16 161/99 (119) 06/21/17 18:00 104 06/21/17 16:00 98.3 142 18 144/101 (115) 06/21/17 16:00 142 06/21/17 12:00 100 Nasal Cannula 2.00 06/21/17 12:00 97.3 76 131/77 (95) 100 06/21/17 12:00 76 06/21/17 10:00 101 I/O 06/21/17 06/21/17 06/21/17 06/22/17 06/22/17 06/22/17 07:00 15:00 23:00 07:00 15:00 23:00 Intake Total 1240 ml 1755 ml 1480 ml Output Total 600 ml 1425 ml 1925 ml Balance 640 ml 330 ml -445 ml Intake Oral 240 ml 650 ml 480 ml IV Total 1000 ml 1105 ml 1000 ml Output Urine Total 600 ml 1425 ml 1925 ml # Voids 2 # Bowel Movements 0 0 0 Result Diagram: 06/22/17 0322 06/22/17 0322 Objective Remarks CONSTITUTIONAL/GEN: Thin white male laying in bed in no restraints, speaking in a low voice. EYES: conjunctiva normal on right eye, left eye only able to view a small portion. EOMI. LUNGS: clear A-P, respiratory effort is normal. CARDIOVASCULAR: Irregular rhythm without murmur or gallop. GI/ABD: soft without masses, pain, and without organomegaly. NEURO: no tremor seen today SKIN: color normal, no rashes noted. : stokes in place MUSC: Extremities are normal in appearance, no cyanosis or edema. Slight clubbing of fingernails noted. PSYCH/MENTAL STATUS: Alert and oriented x3 to person, place, and time. a bit sedated today easily arousable A/P Assessment and Plan Patient is a 62-year-old male with a past medical history of A. fib admitted for syncope and afib w/RVR. On admission, patient was tachycardic and found to be in A. fib with RVR. Patient was found to be intoxicated and subsequently placed on CIWA protocol, tele, IVF hydration, and rate control w/25 mg metoprolol BID plus iv metoprolol. he has improved and can be transferred to the floor Discharge Planning Patient lives alone and will likely require supportive services on discharge. Problem List: (1) Alcohol abuse ICD Codes: F10.10 - Alcohol abuse, uncomplicated Status: Acute Plan: On CIWA protocol, CIWA scores improved Hx of seizures and likely DTs related to withdrawal ativan prn only not scheduled stop librium as the half life is very long Continue Rally pack transfer to floor and work on PT and getting pt up will address alcohol abstinence with him as quitting would be the best thing for his health (2) Atrial fibrillation with RVR ICD Codes: I48.91 - Unspecified atrial fibrillation Status: Acute Plan: Echo w/normal ejection fracture and mild TR Metoprolol 25 BID for rate control Adding Cardizem 60mg po q6h for further control, will monitor rate closely. prior to leaving hospital would change to long acting cardizem Not chronically on anticoagulation. 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 CHADS-VASc score of 2 with a stroke risk of 2.2% per year and 2.9% risk of stroke/TIA/systemic embolism May require anticoagulation, neuro consulted. will need to have conversation with him as he is high risk for falls and bleeds if he continues to become intoxicated Will need follow-up w/cardiology after d/c (3) History of stroke ICD Codes: Z86.73 - Personal history of transient ischemic attack (TIA), and cerebral infarction without residual deficits Plan: Seen per MRI brain on 06/17 showed 11 mm x 7 mm lacunar infarct in the posterior aspect of the yue Lipid panel was normal, ASCVD risk is 7.5% 10 year risk of cardiovascular event , moderate intensity statin recommended, will leave decision to PCP upon discharge Continue aspirin 162 mg daily can start statin prior to d/c (4) Transaminitis ICD Codes: R74.0 - Nonspecific elevation of levels of transaminase and lactic acid dehydrogenase [LDH] Status: Acute Plan: 2/2 alcohol intoxication Downtrending (5) Thrombocytopenia ICD Codes: D69.6 - Thrombocytopenia, unspecified Status: Acute Plan: Likely 2/2 chronic alcohol abuse No active bleeding at this time improving Monitor CBC daily (6) Ataxia ICD Codes: R27.0 - Ataxia, unspecified Status: Acute Plan: Admitted after 2 episodes of syncope while walking w/groceries. Was unable to rise after fall due to balance problems Cerebellar exam abnormal: +dysmetria, intention tremor, and ataxia. Prominent nystagmus w/horizontal gaze. Unlikely due to withdrawal since patient was intoxicated on the day symptoms presented Alcoholic w/hx of seizures (unclear whether he has a hx of DTs) CK mildly elevated to the 700s on admission Differential: cerebellar degeneration 2/2 alcohol v myopathy v ischemic injury v Wernicke's v other demyelination disorder Unfortunately, expect a continued decline in symptoms as this is likely related to chronic alcohol use and treatment options are limited to physical therapy for support Imaging Reports: 06/[address]: 1 cm hypodensity in the central yue which may be an old lacunar infarct. 06/17 Brain MRI: There is a suspected remote lacunar infarct in the posterior aspect of the yue measuring up to about 11 mm in length and 7 mm in AP diameter. No recent infarct is identified on the diffusion weighted images. There is no mass effect or midline shift. No hydrocephalus. No intracranial edema identified. Pituitary is normal size. 06/17 Echo - normal ejection fraction, mild tricuspid regurgitation 06/16 CXR negative for malignancy, infection, or mass 06/20 Head MRA negative On CIWA protocol and Rally pack, see below for plan B12 and folate elevated and patient denies numbness or tingling in the extremities, CK downtrending - no concern for vitamin deficiency or acute myopathy at this time Con't neurochecks and cardiac tele for now PT consulted for assessment: believed patient's unsteadiness to be related to alcohol withdrawal, noted a right tilt. Will need to be reconsulted in the future for reassessment, as alcohol withdrawal does not explain clinical picture. some chronic alcoholics develop severe problems walking that often are helped with time, nutrition. (7) FEN Plan: Fluids: maintenance Electrolytes: continue to monitor, replete as needed Nutrition: Regular DVT ppx: Julianna Wilson MD Jun 22, 2017 09:07
[2017-06-22] MEDS: levETIRAcetam INJ 500 MG in SODIUM CHLORIDE 0.9% INJ 100 ML IV SCH ×2 (10:06→22:24)
[2017-06-22] MEDS: SODIUM CHLORIDE 0.9% FLUSH 10 ML FLUSH IV FLUSH SCH ×2 (10:06→21:00)
[2017-06-22] MEDS: ASPIRIN EC 81 MG TABEC PO SCH (10:07)
[2017-06-22] MEDS: THIAMINE HCL 100 MG TAB PO SCH (10:07)
[2017-06-22] MEDS: METOPROLOL TARTRATE 25 MG TAB PO SCH ×2 (10:07→22:23)
[2017-06-22] MEDS: ENOXAPARIN SODIUM 30 MG/0.3 ML SYRINGE SQ SCH (10:07)
--- NOTE | 2017-06-22 13:44 | HHI.CCPN ---
Subjective Remarks/Hospital Course 06/18: 62-year-old male with a medical history significant for alcohol abuse who was admitted on 06/16/2017. Patient reportedly drank alcohol when to get groceries and then while walking to the car felt off balance and fell and was unable to get up. [facility] was called by bystanders and patient was brought to the ER. Reportedly there was no history of witnessed seizures tongue biting or urinary incontinence. Patient had A. fib with RVR on arrival and received Cardizem 20 mg IV and subsequently had a head CT which showed a hypodense lesion in the posterior yue which look like old ischemic infarct. Patient was admitted by family medicine service. He was also noted to be ataxic. MRI brain revealed old ischemic infarct in the region of upper yue posteriorly. Patient has a history of significant alcohol abuse drinking 6-10 shots of vodka daily and has a history of A. fib though does not have regular follow-up. He did undergo cardiac ablation 5 years ago per documentation. His home medications list atenolol and aspirin 81 mg daily however has not been on anticoagulation. Patient was placed on alcohol withdrawal protocol on the floor however today he got extremely agitated with hallucinations and was taking at the nursing staff. Critical care consult was requested for worsening alcohol withdrawal. I evaluated the patient at the bedside. He had just received 4 mg of Ativan IV prior to my arrival. He was still awake and alert at the time with occasional tremors noted in right upper extremity which were coarse. He knew he was at the hospital and was following commands appropriately though stated that he was angry and wanted to go home. He received 4 more milligrams of IV Ativan and 5 mg of Haldol IV to control his anxiety/restlessness/agitation and was awaiting transfer to the ICU. He was tachycardic with heart rate 120s atrial fibrillation at the time of my arrival however with additional sedation his heart rate came down to the 90s. He was maintaining his blood pressure and O2 sats. History was obtained by reviewing records and discussion with Dr. Bello- guardian family member. 4/2: Drowsy at the time of my evaluation this morning, easily arousable. Not in any acute distress. Hallucinating off and on per nursing staff. Wants to eat. /3: Afebrile. The patient continues to be lethargic, easily arousable. Patient continues to have a poor appetite, normal saline glucose blood levels low normal. 06/21: No acute events overnight. Patient poorly tolerating PO diet. Patient extremely lethargic this a.m., scheduled doses of Ativan 2 mg every 6 hours placed on hold. Patient oriented to name and place. Continued restraints for patient safety. 06/22: Afebrile. Patient alert and speaking on cellphone, in no acute distress. Patient tolerating diet. Objective Vital Signs Date Time Temp Pulse Resp B/P (MAP) Pulse Ox O2 Delivery O2 Flow Rate FiO2 06/22/17 12:00 72 06/22/17 09:00 96 Nasal Cannula 2.00 06/22/17 04:00 97.7 39 163/76 (105) 06/19/17 00:00 21 Intake and Output 06/22/17 06/22/17 06/23/17 08:00 16:00 00:00 Intake Total 1480 ml Output Total 1925 ml Balance -445 ml Result Diagram: 06/22/17 0322 06/22/17 0322 Imaging Last Impressions Head Magnetic Resonance Angiography 06/20/17 0000 Signed Impressions: Service Date/Time: Tuesday, June 20, 2017 09:05 - CONCLUSION: 1. Negative examination. Homer Trevino MD Brain MRI 06/17/17 0000 Signed Impressions: Service Date/Time: Saturday, June 17, 2017 13:31 - CONCLUSION: 1. 11 mm x 7 mm lacunar infarct in the posterior aspect of the yue. No acute findings. Diogenes Aquino MD Head CT 06/16/17 1157 Signed Impressions: Service Date/Time: Friday, June 16, 2017 12:18 - CONCLUSION: 1 cm hypodensity in the central yue which may be an old lacunar infarct. This could be further characterized with MRI if clinically indicated.. Todd Verde MD Chest X-Ray 06/16/17 1157 Signed Impressions: Service Date/Time: Friday, June 16, 2017 12:43 - CONCLUSION: No acute disease. Mild scarring is again noted the right lung base. Carlito Head MD Last Impressions Brain MRI 06/17/17 0000 Signed Impressions: Service Date/Time: Saturday, June 17, 2017 13:31 - CONCLUSION: 1. 11 mm x 7 mm lacunar infarct in the posterior aspect of the yue. No acute findings. Diogenes Aquino MD Head CT 06/16/17 1157 Signed Impressions: Service Date/Time: Friday, June 16, 2017 12:18 - CONCLUSION: 1 cm hypodensity in the central yue which may be an old lacunar infarct. This could be further characterized with MRI if clinically indicated.. Todd Verde MD Chest X-Ray 06/16/17 2097 Signed Impressions: Service Date/Time: Friday, June 16, 2017 12:43 - CONCLUSION: No acute disease. Mild scarring is again noted the right lung base. Carlito Head MD Objective Remarks HEENT/Neuro: No pallor or icterus, tongue moist, WOOD, extremely lethargic, oriented to name and place not very cooperative, moving all 4 extremities. Refuses to open eyes upon commands. Neck: No JVD Chest/pulmonary: CTA bilaterally Cardiovascular: S1-S2 regular no gallop or murmur GI/abdomen: Soft, nontender, bowel sounds present Extremities: Warm bilaterally, no edema. Abrasions over his shins in various stages of healing. 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 Continue CIWA protocol, thiamine/MVI/folic acid per protocol. EEG done on 06/18 did not reveal any seizure activity however was abnormal.. MRI brain with evidence of old ischemic infarct in the yue. Ataxia appears to be relatively new. Check MMA and folic acid levels to evaluate for functional B- 12 and folic acid deficiency. Neurology consult requested for further stroke workup as well as evaluation of ataxia and altered mental status. Librium PO added on 06/18 for ETOH withdrawal, 100 mg BID Cardiovascular: IV hydration with normal saline. Watch for hypotension. Continue beta deepali for rate control for A. fib. Aspirin increased to 162 mg daily. May require full anticoagulation in view of previous evidence of ischemic range stem infarct and history of A. fib. Awaiting neurology evaluation. Pulmonary: Protecting airway. Wean O2 off. Maintain O2 saturation greater than 92% GI/liver: LFTs improving. By mouth diet as tolerated. Renal/: IV hydration, strict intake output, monitor and replete electrolytes, follow BUN/creatinine. ID: No indication for antibiotics at this time. Heme: Follow CBC. Pre-existing thrombocytopenia from EtOH bone marrow suppression. Platelet count improved. begin Lovenox, HIT panel negative. Awaiting MMA . Homocysteine levels to evaluate for macrocytosis are WNL Endocrine: Watch for hyperglycemia, SSI for glycemic control if needed. Prophylaxis: SCDs. Lovenox. No indication for GI prophylaxis at this time. Discussed with CALL OR CONTACT CENTRE OPERATOR (Destinee ) Level 2 Thank you for allowing participation in caring for this patient ,critical care medicine will sign off. Physician Sharyn Garnica MD Jun 22, 2017 13:44
[2017-06-23] VITALS (15 sets, daily range): BP systolic 106–154; BP diastolic 66–95; PULSE 62–109; RESP 18–22; TEMP 97.4–98.8; O2SAT 93–100
[2017-06-23] MEDS: DILTIAZEM HCL 60 MG TAB PO SCH ×4 (00:02→18:20)
[2017-06-23] MEDS: CHLORHEXIDINE GLUCONATE 2 % 1 PACK (2 CLOTHS)(taper/protocol) TOPICAL SCH (03:04)
[2017-06-23] MEDS: ASPIRIN EC 81 MG TABEC PO SCH (08:41)
[2017-06-23] MEDS: NS + KCL 40 MEQ INJ 1,000 ML IV SCH ×2 (08:41)
[2017-06-23] MEDS: METOPROLOL TARTRATE 25 MG TAB PO SCH ×2 (08:41→22:25)
[2017-06-23] MEDS: THIAMINE HCL 100 MG TAB PO SCH (08:41)
[2017-06-23] MEDS: SODIUM CHLORIDE 0.9% FLUSH 10 ML FLUSH IV FLUSH SCH ×2 (08:42→21:00)
[2017-06-23] MEDS: levETIRAcetam INJ 500 MG in SODIUM CHLORIDE 0.9% INJ 100 ML IV SCH ×2 (08:43→22:23)
[2017-06-23 09:12] LABS: ALBUMIN 3.5 GM/DL (3.4-5.0); ALKALINE PHOSPHATASE 70 U/L (45-117); ALT (GPT) 40 U/L (12-78); AST (GOT) 34 U/L (15-37); BICARBONATE 27.3 MEQ/L (21.0-32.0); BLOOD UREA NITROGEN 6 MG/DL (7-18); CALCIUM 9.8 MG/DL (8.5-10.1); CHLORIDE 108 MEQ/L (98-107); CREATININE 0.75 MG/DL (0.60-1.30); GLOMERULAR FILTRATION RATE 105 ML/MIN (>89); GLUCOSE,RANDOM 93 MG/DL (74-106); SODIUM (NA) 142 MEQ/L (136-145); TOTAL BILIRUBIN ADULT 0.7 MG/DL (0.2-1.0); TOTAL PROTEIN 7.5 GM/DL (6.4-8.2)
[2017-06-23] MEDS: ENOXAPARIN SODIUM 30 MG/0.3 ML SYRINGE SQ SCH (11:05)
--- NOTE | 2017-06-23 12:06 | HHI.FPPN ---
Subjective Remarks No acute events overnight. Afebrile, vitals stable. Patient is awake and alert, oriented x3 this AM. He denies confusion, fevers, tremors, palpitations. He is eager to ambulate more. He otherwise denies chest pain, SOB, calf pain. (Param Deluca MD R2) Objective Vitals Vital Signs Date Time Temp Pulse Resp B/P (MAP) Pulse Ox O2 Delivery O2 Flow Rate FiO2 06/23/17 08:00 98.2 82 20 134/81 (98) 100 06/23/17 04:00 97.4 81 18 139/74 (95) 100 06/23/17 04:00 Nasal Cannula 2.00 06/23/17 03:56 109 06/23/17 00:00 98.2 90 19 154/95 (114) 100 06/22/17 23:49 69 06/22/17 22:30 Nasal Cannula 2.00 06/22/17 20:35 98.4 86 17 146/94 (111) 95 06/22/17 16:00 98.1 100 37 125/55 (78) 06/22/17 16:00 100 06/22/17 16:00 97 Nasal Cannula 2.00 I/O 06/22/17 06/22/17 06/22/17 06/23/17 06/23/17 06/23/17 07:00 15:00 23:00 07:00 15:00 23:00 Intake Total 1480 ml 600 ml 1420 ml Output Total 1925 ml 1000 ml 1700 ml Balance -445 ml -400 ml -280 ml Intake Oral 480 ml 500 ml 420 ml IV Total 1000 ml 100 ml 1000 ml Output Urine Total 1925 ml 1000 ml 1700 ml # Bowel Movements 0 0 2 (Param Deluca MD R2) Result Diagram: 06/22/17 0322 06/23/17 0637 Objective Remarks CONSTITUTIONAL/GEN: Thin white male laying in bed in no restraints, speaking in a low voice. EYES: EOMI. Conjunctiva normal. LUNGS: clear A-P, respiratory effort is normal. CARDIOVASCULAR: Irregular rhythm without murmur or gallop. GI/ABD: soft without masses, pain, and without organomegaly. NEURO: no tremor seen today SKIN: color normal, no rashes noted. MUSC: Extremities are normal in appearance, no cyanosis or edema. Slight clubbing of fingernails noted. PSYCH/MENTAL STATUS: Alert and oriented x3 to person, place, and time. (Param Deluca MD R2) A/P Assessment and Plan Patient is a 62-year-old male with a past medical history of A. fib admitted for syncope and afib w/RVR. On admission, patient was tachycardic and found to be in A. fib with RVR. Patient was found to be intoxicated and subsequently placed on CIWA protocol, tele, IVF hydration, and rate control w/25 mg metoprolol BID plus iv metoprolol. Discharge Planning Patient lives alone and will likely require supportive services on discharge. (Param Deluca MD R2) Attending Attestation Patient seen and examined. Case reviewed and discussed with the resident team. Agree with plan of care as discussed with me and documented in the resident note. he is taking awhile to get back to his earlier baseline. will continue to give good supportive care (Julianna García MD) Problem List: (1) Alcohol abuse ICD Codes: F10.10 - Alcohol abuse, uncomplicated Status: Acute Plan: On CIWA protocol, CIWA scores improved ranging 2-5 past 24 hours Hx of seizures and likely DTs related to withdrawal ativan prn per CIWA protocol, discontinued scheduled Librium discontinued Continue Rally pack Consult PT Will address alcohol abstinence with him as quitting would be the best thing for his health (2) Atrial fibrillation with RVR ICD Codes: I48.91 - Unspecified atrial fibrillation Status: Acute Plan: Echo w/normal ejection fracture and mild TR Metoprolol 25 BID for rate control Continue Cardizem 60mg po q6h for further control, will monitor rate closely. prior to leaving hospital would change to long acting cardizem Not chronically on anticoagulation. 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 CHADS-VASc score of 2 with a stroke risk of 2.2% per year and 2.9% risk of stroke/TIA/systemic embolism May require anticoagulation, neuro consulted. will need to have conversation with him as he is high risk for falls and bleeds if he continues to become intoxicated Will need follow-up w/cardiology after d/c (3) History of stroke ICD Codes: Z86.73 - Personal history of transient ischemic attack (TIA), and cerebral infarction without residual deficits Plan: Seen per MRI brain on 06/17 showed 11 mm x 7 mm lacunar infarct in the posterior aspect of the yue Lipid panel was normal, ASCVD risk is 7.5% 10 year risk of cardiovascular event , moderate intensity statin recommended, will leave decision to PCP upon discharge Continue aspirin 162 mg daily can start statin prior to d/c (4) Transaminitis ICD Codes: R74.0 - Nonspecific elevation of levels of transaminase and lactic acid dehydrogenase [LDH] Status: Acute Plan: 2/2 alcohol intoxication Downtrending, now WNL (5) Thrombocytopenia ICD Codes: D69.6 - Thrombocytopenia, unspecified Status: Acute Plan: Likely 2/2 chronic alcohol abuse No active bleeding at this time improving Monitor CBC daily (6) Ataxia ICD Codes: R27.0 - Ataxia, unspecified Status: Acute Plan: Admitted after 2 episodes of syncope while walking w/groceries. Was unable to rise after fall due to balance problems Cerebellar exam abnormal: +dysmetria, intention tremor, and ataxia. Prominent nystagmus w/horizontal gaze. Unlikely due to withdrawal since patient was intoxicated on the day symptoms presented Alcoholic w/hx of seizures (unclear whether he has a hx of DTs) CK mildly elevated to the 700s on admission Differential: cerebellar degeneration 2/2 alcohol v myopathy v ischemic injury v Wernicke's v other demyelination disorder Unfortunately, expect a continued decline in symptoms as this is likely related to chronic alcohol use and treatment options are limited to physical therapy for support Imaging Reports: 06/[address]: 1 cm hypodensity in the central yue which may be an old lacunar infarct. 06/17 Brain MRI: There is a suspected remote lacunar infarct in the posterior aspect of the yue measuring up to about 11 mm in length and 7 mm in AP diameter. No recent infarct is identified on the diffusion weighted images. There is no mass effect or midline shift. No hydrocephalus. No intracranial edema identified. Pituitary is normal size. 06/17 Echo - normal ejection fraction, mild tricuspid regurgitation 06/16 CXR negative for malignancy, infection, or mass 06/20 Head MRA negative On CIWA protocol and Rally pack, see below for plan B12 and folate elevated and patient denies numbness or tingling in the extremities, CK downtrending - no concern for vitamin deficiency or acute myopathy at this time Con't neurochecks and cardiac tele for now PT consulted for assessment: believed patient's unsteadiness to be related to alcohol withdrawal, noted a right tilt. Will need to be reconsulted in the future for reassessment, as alcohol withdrawal does not explain clinical picture. some chronic alcoholics develop severe problems walking that often are helped with time, nutrition. (7) FEN Plan: Fluids: maintenance Electrolytes: continue to monitor, replete as needed Nutrition: Regular DVT ppx: SCDs, Lovenox (Param Deluca MD R2) Param Deluca MD R2 Jun 23, 2017 12:06 Julianna García MD Jun 25, 2017 12:09
--- NOTE | 2017-06-23 21:04 | HHI.PR ---
Addendum to Inpatient Note Addendum Reason: Additional Documentation Additional Information S:Resident team paged at 2000 in regards to an unwitnessed fall. Nursing staff reports patient was seen in his bed but stated he had slipped and fell on the floor earlier. Denied head trauma. When evaluated by resident team, he stated he was standing by his bed "cleaning up" when he slipped and fell on his hands/ knees. States he is always dizzy but did not feel different prior to the fall, no LOC. He states he is in no pain and did not hit his head. O: VS - unremarkable Gen: laying in bed in NAD CV: irregular rhythm without murmur Resp: CTAB, normal resp effort with no wheezes Abd: soft, nontender Ext: superficial bruising noted on patient's R forearm, no tenderness to palpation. full ROM of R wrist. sensation intact. Old scabs noted on bilateral knees, no new bruising/lesions. No tenderness to palpation, sensation intact. A/P: 62 yo with PMH of Afib admitted for syncope and alcohol abuse who had an unwitnessed fall. Only notable finding is superficial bruise on R forearm. Otherwise no injuries. Will put on fall precautions and monitor for now. No imaging indicated at this time. Antonio Copeland Dr., MD R1 Jun 23, 2017 21:04
[2017-06-24] VITALS (12 sets, daily range): BP systolic 107–129; BP diastolic 65–82; PULSE 59–91; RESP 18–20; TEMP 97.4–99; O2SAT 95–99
[2017-06-24] MEDS: DILTIAZEM HCL 60 MG TAB PO SCH ×5 (00:28→23:51)
[2017-06-24 09:01] LABS: BICARBONATE 28.5 MEQ/L (21.0-32.0); CALCIUM 10.1 MG/DL (8.5-10.1); CREATININE 0.77 MG/DL (0.60-1.30)
[2017-06-24] MEDS: THIAMINE HCL 100 MG TAB PO SCH (09:17)
[2017-06-24] MEDS: METOPROLOL TARTRATE 25 MG TAB PO SCH ×2 (09:17→20:44)
[2017-06-24] MEDS: MULTIVITAMIN TAB PO SCH (09:17)
[2017-06-24] MEDS: ASPIRIN EC 81 MG TABEC PO SCH (09:17)
[2017-06-24] MEDS: SODIUM CHLORIDE 0.9% FLUSH 10 ML FLUSH IV FLUSH SCH ×2 (09:18→20:44)
[2017-06-24] MEDS: ENOXAPARIN SODIUM 30 MG/0.3 ML SYRINGE SQ SCH (09:18)
[2017-06-24] MEDS: levETIRAcetam INJ 500 MG in SODIUM CHLORIDE 0.9% INJ 100 ML IV SCH (09:18)
--- NOTE | 2017-06-24 11:27 | HHI.FPPN ---
Subjective Remarks Yesterday evening patient had an unwitnessed fall. Patient was evaluated at bedside by resident push button switch assembler team. Patient lying comfortably in bed this morning. His only complaint is of wanting to decrease his medications. He denies pain, headache, new focal neuro deficit, confusion, fevers, CP, SOB. Afebrile, vitals stable. (Param Deluca MD R2) Objective Vitals Vital Signs Date Time Temp Pulse Resp B/P (MAP) Pulse Ox O2 Delivery O2 Flow Rate FiO2 06/24/17 10:07 99 Nasal Cannula 2.00 06/24/17 08:00 87 06/24/17 08:00 98.0 90 20 129/78 (95) 99 06/24/17 08:00 99 Nasal Cannula 2.00 06/24/17 04:00 97.4 65 18 113/82 (92) 99 06/24/17 04:00 Nasal Cannula 2.00 06/24/17 03:44 59 06/24/17 00:00 Nasal Cannula 2.00 06/24/17 00:00 97.7 73 18 107/66 (80) 98 06/23/17 23:48 62 06/23/17 22:30 Nasal Cannula 2.00 06/23/17 22:21 69 06/23/17 22:00 97.8 92 19 106/72 (83) 93 06/23/17 21:00 98.8 82 20 122/66 (84) 93 06/23/17 20:00 98.1 88 19 118/71 (87) 95 06/23/17 16:00 97.8 87 18 132/85 (101) 98 06/23/17 15:49 84 06/23/17 14:09 98 Nasal Cannula 2.00 06/23/17 12:02 77 06/23/17 11:50 97.4 78 22 130/76 (94) 99 I/O 06/23/17 06/23/17 06/23/17 06/24/17 06/24/17 06/24/17 07:00 15:00 23:00 07:00 15:00 23:00 Intake Total 1420 ml 874 ml 105 ml 240 ml 100 ml Output Total 1700 ml 700 ml Balance -280 ml 874 ml 105 ml -460 ml 100 ml Intake Oral 420 ml 240 ml IV Total 1000 ml 874 ml 105 ml 100 ml Output Urine Total 1700 ml 700 ml # Voids 2 # Bowel Movements 2 1 (Param Deluca MD R2) Result Diagram: 06/22/17 0322 06/24/17 0711 Objective Remarks CONSTITUTIONAL/GEN: Thin white male lying in bed in no restraints, speaking in a low voice. EYES: EOMI. Conjunctiva normal. LUNGS: clear A-P, respiratory effort is normal. CARDIOVASCULAR: Irregular rhythm without murmur or gallop. GI/ABD: soft without masses, pain, and without organomegaly. NEURO: no tremor seen today SKIN: color normal, no rashes noted. MUSC: Extremities are normal in appearance, no cyanosis or edema. Slight clubbing of fingernails noted. PSYCH/MENTAL STATUS: Alert and oriented x3 to person, place, and time. (Param Deluca MD R2) A/P Assessment and Plan Patient is a 62-year-old male with a past medical history of A. fib admitted for syncope and afib w/RVR. Patient was found to be intoxicated and subsequently placed on CIWA protocol and monitored in the ICU for etoh withdrawal. Discharge Planning Patient lives alone and will likely require supportive services on discharge. (Param Deluca MD R2) Attending Attestation Patient seen and examined. Case reviewed and discussed with the resident team. Agree with plan of care as discussed with me and documented in the resident note. he is not a safe discharge as long as he is not steady to walk so will work on PT (Julianna García MD) Problem List: (1) Alcohol abuse ICD Codes: F10.10 - Alcohol abuse, uncomplicated Status: Acute Plan: On CIWA protocol, CIWA scores improved ranging 2-5 past 24 hours Hx of seizures and likely DTs related to withdrawal ativan prn per CIWA protocol, discontinued scheduled Librium discontinued Continue Rally pack Consult PT Will address alcohol abstinence with him as quitting would be the best thing for his health (2) Atrial fibrillation with RVR ICD Codes: I48.91 - Unspecified atrial fibrillation Status: Acute Plan: Echo w/normal ejection fracture and mild TR Metoprolol 25 BID for rate control Continue Cardizem 60mg po q6h for further control, will monitor rate closely. prior to leaving hospital would change to long acting cardizem Not chronically on anticoagulation. 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 CHADS-VASc score of 2 with a stroke risk of 2.2% per year and 2.9% risk of stroke/TIA/systemic embolism May require anticoagulation, neuro consulted. will need to have conversation with him as he is high risk for falls and bleeds if he continues to become intoxicated Will need follow-up w/cardiology after d/c (3) History of stroke ICD Codes: Z86.73 - Personal history of transient ischemic attack (TIA), and cerebral infarction without residual deficits Plan: Seen per MRI brain on 06/17 showed 11 mm x 7 mm lacunar infarct in the posterior aspect of the yue Lipid panel was normal, ASCVD risk is 7.5% 10 year risk of cardiovascular event , moderate intensity statin recommended, will leave decision to PCP upon discharge Continue aspirin 162 mg daily can start statin prior to d/c (4) Transaminitis ICD Codes: R74.0 - Nonspecific elevation of levels of transaminase and lactic acid dehydrogenase [LDH] Status: Acute Plan: 2/2 alcohol intoxication Downtrending, now WNL (5) Thrombocytopenia ICD Codes: D69.6 - Thrombocytopenia, unspecified Status: Acute Plan: Likely 2/2 chronic alcohol abuse No active bleeding at this time improving (6) Ataxia ICD Codes: R27.0 - Ataxia, unspecified Status: Acute Plan: Admitted after 2 episodes of syncope while walking w/groceries. Was unable to rise after fall due to balance problems Cerebellar exam abnormal: +dysmetria, intention tremor, and ataxia. Prominent nystagmus w/horizontal gaze. Unlikely due to withdrawal since patient was intoxicated on the day symptoms presented Alcoholic w/hx of seizures (unclear whether he has a hx of DTs) CK mildly elevated to the 700s on admission Differential: cerebellar degeneration 2/2 alcohol v myopathy v ischemic injury v Wernicke's v other demyelination disorder Unfortunately, expect a continued decline in symptoms as this is likely related to chronic alcohol use and treatment options are limited to physical therapy for support Imaging Reports: 06/[address]: 1 cm hypodensity in the central yue which may be an old lacunar infarct. 06/17 Brain MRI: There is a suspected remote lacunar infarct in the posterior aspect of the yue measuring up to about 11 mm in length and 7 mm in AP diameter. No recent infarct is identified on the diffusion weighted images. There is no mass effect or midline shift. No hydrocephalus. No intracranial edema identified. Pituitary is normal size. 06/17 Echo - normal ejection fraction, mild tricuspid regurgitation 06/16 CXR negative for malignancy, infection, or mass 06/20 Head MRA negative On CIWA protocol and Rally pack, see below for plan B12 and folate elevated and patient denies numbness or tingling in the extremities, CK downtrending - no concern for vitamin deficiency or acute myopathy at this time Con't neurochecks and cardiac tele for now PT consulted for assessment: believed patient's unsteadiness to be related to alcohol withdrawal, noted a right tilt. Will need to be reconsulted in the future for reassessment, as alcohol withdrawal does not explain clinical picture. some chronic alcoholics develop severe problems walking that often are helped with time, nutrition. (7) FEN Plan: Fluids: PO Electrolytes: continue to monitor, replete as needed Nutrition: Regular DVT ppx: SCDs, Lovenox (Param Deluca MD R2) Param Deluca MD R2 Jun 24, 2017 11:27 Julianna García MD Jun 25, 2017 12:11
[2017-06-25] VITALS (8 sets, daily range): BP systolic 99–112; BP diastolic 59–67; PULSE 52–78; RESP 17–20; TEMP 97.3–98.7; O2SAT 94–99
[2017-06-25] MEDS: DILTIAZEM HCL 60 MG TAB PO SCH ×3 (06:00→16:32)
[2017-06-25] MEDS: SODIUM CHLORIDE 0.9% FLUSH 10 ML FLUSH IV FLUSH SCH ×2 (08:14→20:47)
[2017-06-25] MEDS: MULTIVITAMIN TAB PO SCH (08:16)
[2017-06-25] MEDS: METOPROLOL TARTRATE 25 MG TAB PO SCH ×2 (08:16→20:47)
[2017-06-25] MEDS: ASPIRIN EC 81 MG TABEC PO SCH (08:16)
[2017-06-25] MEDS: THIAMINE HCL 100 MG TAB PO SCH (08:16)
[2017-06-25] MEDS: ENOXAPARIN SODIUM 30 MG/0.3 ML SYRINGE SQ SCH (08:19)
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
[2017-06-26] VITALS (9 sets, daily range): BP systolic 97–110; BP diastolic 56–66; PULSE 50–79; RESP 17–20; TEMP 97.6–99; O2SAT 93–97
[2017-06-26] MEDS: DILTIAZEM HCL 60 MG TAB PO SCH ×4 (00:34→17:12)
[2017-06-26] MEDS: SODIUM CHLORIDE 0.9% FLUSH 10 ML FLUSH IV FLUSH SCH ×2 (08:38→20:44)
[2017-06-26] MEDS: METOPROLOL TARTRATE 25 MG TAB PO SCH ×2 (08:38→20:44)
[2017-06-26] MEDS: ASPIRIN EC 81 MG TABEC PO SCH (08:38)
[2017-06-26] MEDS: MULTIVITAMIN TAB PO SCH (08:38)
[2017-06-26] MEDS: THIAMINE HCL 100 MG TAB PO SCH (08:38)
[2017-06-26] MEDS: ENOXAPARIN SODIUM 30 MG/0.3 ML SYRINGE SQ SCH (08:38)
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
[2017-06-27] MEDS: DILTIAZEM HCL 60 MG TAB PO SCH ×2 (00:20→05:13)
[2017-06-27 00:39] VITALS: BP 118/72; PULSE 71; RESP 17; TEMP 97.8; O2SAT 96
[2017-06-27 03:44] VITALS: PULSE 63
[2017-06-27 04:41] VITALS: BP 108/70; PULSE 64; RESP 17; TEMP 98.4; O2SAT 95
[2017-06-27] MEDS: ENOXAPARIN SODIUM 30 MG/0.3 ML SYRINGE SQ SCH (07:58)
[2017-06-27] MEDS: ASPIRIN EC 81 MG TABEC PO SCH (07:58)
[2017-06-27] MEDS: MULTIVITAMIN TAB PO SCH (07:58)
[2017-06-27] MEDS: THIAMINE HCL 100 MG TAB PO SCH (07:59)
[2017-06-27] MEDS: METOPROLOL TARTRATE 25 MG TAB PO SCH (07:59)
[2017-06-27] MEDS: SODIUM CHLORIDE 0.9% FLUSH 10 ML FLUSH IV FLUSH SCH (07:59)
[2017-06-27 08:00] VITALS: BP 102/64; PULSE 48; PULSE 52; RESP 20; TEMP 97.7; O2SAT 96
--- NOTE | 2017-06-27 09:34 | HHI.DCPOC ---
Discharge Care Plan Diagnosis: (1) Syncope (2) Atrial fibrillation with RVR (3) Alcohol dependence with withdrawal Goals to Promote Your Health * To prevent worsening of your condition and complications * To maintain your health at the optimal level Directions to Meet Your Goals Patient on metoprolol 25mg BID and Diltiazem CD 120mg for A fib rate control , please continue these medications Abstain from alcohol Take your medications as prescribed Follow your dietary instruction Follow activity as directed Keep your appointments as scheduled Take your immunizations and boosters as scheduled If your symptoms worsen call your PCP, if no PCP go to Urgent Care Center or Emergency Room Smoking is Dangerous to Your Health. Avoid second hand smoke Call the 24-hour hour crisis hotline for domestic abuse at Tania Lawrence MD R1 Jun 27, 2017 09:34
[2017-06-27] MEDS ORDERED: DILT120C50 PO (09:55)
[2017-06-27] MEDS ORDERED: METO25TA3 PO (09:55)
[2017-06-27] MEDS ORDERED: DILTIAZEM-CD 120 MG CAP ER PO SCH (11:00)
[2017-06-27 12:00] VITALS: BP 109/63; PULSE 52; PULSE 56; RESP 20; TEMP 97.7; O2SAT 98
--- NOTE | 2017-06-27 12:09 | HHI.FPPN ---
Subjective Remarks Mr Wall is working hard to gain back his strength. He was walking with his walker in the room when we entered. He had the assistance of his nurse and did have some unsteadiness on his feet but is definitely making progress. He appreciates and has thanks for all that has been done for him in the hospital. he has been very pleasant and cooperative for the past several days. He has no complaints today. Objective Vitals Vital Signs Date Time Temp Pulse Resp B/P (MAP) Pulse Ox O2 Delivery O2 Flow Rate FiO2 06/27/17 08:00 97.7 52 20 102/64 (77) 96 06/27/17 08:00 48 06/27/17 08:00 Room Air 06/27/17 04:41 98.4 64 17 108/70 (83) 95 06/27/17 03:44 63 06/27/17 00:39 97.8 71 17 118/72 (87) 96 06/26/17 23:45 64 06/26/17 21:33 98.2 63 17 105/64 (78) 93 06/26/17 21:26 21 06/26/17 20:08 53 06/26/17 19:45 Room Air 06/26/17 16:05 99.0 60 20 109/66 (80) 95 06/26/17 16:00 79 I/O 06/26/17 06/26/17 06/26/17 06/27/17 06/27/17 06/27/17 07:00 15:00 23:00 07:00 15:00 23:00 Intake Total 300 ml Output Total 1325 ml Balance 300 ml -1325 ml Intake Oral 300 ml Output Urine Total 1325 ml # Voids 3 # Bowel Movements 1 Result Diagram: 06/24/17 0711 Objective Remarks CONSTITUTIONAL/GEN: Thin white male standing in room, NAD. conversant and pleasant EYES: EOMI. Conjunctiva normal. LUNGS: clear A-P, respiratory effort is normal. CARDIOVASCULAR: Irregular rhythm without murmur or gallop. GI/ABD: soft without masses, pain, and without organomegaly. NEURO: no to mild tremor seen today. he was carrying some water and had some tremor with that SKIN: color normal, no rashes noted. MUSC: Extremities are normal in appearance, no cyanosis or edema. Slight clubbing of fingernails noted. PSYCH/MENTAL STATUS: Alert and oriented x3 to person, place, and time. increased capacity to make his own decisions A/P Assessment and Plan Patient is a 62-year-old male with a past medical history of A. fib admitted for syncope and afib w/RVR. Patient was found to be intoxicated and subsequently placed on CIWA protocol and monitored in the ICU for etoh withdrawal. Discharge Planning Patient lives alone and will likely require supportive services on discharge. have applied to SNFs as he is weak from his medical illnesses Problem List: (1) Ataxia ICD Codes: R27.0 - Ataxia, unspecified Status: Acute Plan: Admitted after 2 episodes of syncope while walking w/groceries. Was unable to rise after fall due to balance problems Cerebellar exam abnormal upon admission: +dysmetria, intention tremor, and ataxia. Prominent nystagmus w/horizontal gaze. Unlikely due to withdrawal since patient was intoxicated on the day symptoms presented Alcoholic w/hx of seizures (unclear whether he has a hx of DTs) CK mildly elevated to the 700s on admission Differential: cerebellar degeneration 2/2 alcohol v myopathy v ischemic injury v Wernicke's v other demyelination disorder Imaging Reports: 06/[address]: 1 cm hypodensity in the central yue which may be an old lacunar infarct. 06/17 Brain MRI: There is a suspected remote lacunar infarct in the posterior aspect of the yue measuring up to about 11 mm in length and 7 mm in AP diameter. No recent infarct is identified on the diffusion weighted images. There is no mass effect or midline shift. No hydrocephalus. No intracranial edema identified. Pituitary is normal size. 06/17 Echo - normal ejection fraction, mild tricuspid regurgitation 06/16 CXR negative for malignancy, infection, or mass 06/20 Head MRA negative PT reconsulted for assessment: initially believed patient's unsteadiness to be related to alcohol withdrawal, noted a right tilt. On CIWA protocol and Rally pack, see below for plan B12 and folate elevated and patient denies numbness or tingling in the extremities, CK downtrending - no concern for vitamin deficiency or acute myopathy at this time Con't neurochecks and cardiac tele for now he is slowly improving with his ataxia but will benefit from rehab. he is deconditioned and has poor nutrition for some time period. (2) Atrial fibrillation with RVR ICD Codes: I48.91 - Unspecified atrial fibrillation Status: Acute Plan: Echo w/normal ejection fracture and mild TR Metoprolol 25 BID for rate control Continued Cardizem 60mg po q6h for further control, will monitor rate closely. prior to leaving hospital needs change to long acting cardizem. on review, he has episodes of asymptomatic bradycardia. will change to long acting cardizem at 120 mg daily and continue his beta deepali. he may need further rate adjustment as an outpt. some people need pacemakers, etc Not chronically on anticoagulation. Posterior yeu infarct (old) seen on MRI. CHADS-VASc score of 2 with a stroke risk of 2.2% per year and 2.9% risk of stroke/TIA/systemic embolism May require anticoagulation, neuro consulted. will need to have conversation with him as he is high risk for falls and bleeds if he continues to become intoxicated however, this is a decision that he can make as an outpt. he is still very unsteady on his feet at this point Will need follow-up w/cardiology after d/c (3) History of stroke ICD Codes: Z86.73 - Personal history of transient ischemic attack (TIA), and cerebral infarction without residual deficits Plan: Seen per MRI brain on 06/17 showed 11 mm x 7 mm lacunar infarct in the posterior aspect of the yue Lipid panel was normal, ASCVD risk is 7.5% 10 year risk of cardiovascular event , moderate intensity statin recommended, will leave decision to PCP upon discharge Continue aspirin 162 mg daily can start statin prior to d/c (4) Alcohol abuse ICD Codes: F10.10 - Alcohol abuse, uncomplicated Status: Acute Plan: CIWA scores improved, now not being scored since 4/6 Hx of seizures and likely DTs related to withdrawal ativan prn per CIWA protocol, discontinued scheduled Librium discontinued Continue Rally pack Consulted PT have addressed alcohol abstinence with him as quitting would be the best thing for his health. yesterday had a conversation where he stated he wanted to quit drinking so hopefully he can get help as an outpt as well (5) FEN Status: Acute Plan: Fluids: PO Electrolytes: continue to monitor, replete as needed Nutrition: Regular DVT ppx: SCDs, Julianna Chacon MD Jun 27, 2017 12:09
[2017-06-27 16:00] VITALS: BP 96/65; PULSE 53; PULSE 67; RESP 20; TEMP 98.3; O2SAT 96
--- NOTE | 2017-06-28 09:51 | HHI.DS ---
Discharge Summary Admission Date Jun 16, 2017 at 14:29 Discharge Date: Jun 27, 2017 Admitting Diagnosis SYNCOPE, AFIB W. RVR, ETOH ABUSE (1) Ataxia Plan: Admitted after 2 episodes of syncope while walking w/groceries. Was unable to rise after fall due to balance problems Cerebellar exam abnormal upon admission: +dysmetria, intention tremor, and ataxia. Prominent nystagmus w/horizontal gaze. Unlikely due to withdrawal since patient was intoxicated on the day symptoms presented Alcoholic w/hx of seizures (unclear whether he has a hx of DTs) CK mildly elevated to the 700s on admission Differential: cerebellar degeneration 2/2 alcohol v myopathy v ischemic injury v Wernicke's v other demyelination disorder Imaging Reports: 06/[address]: 1 cm hypodensity in the central yue which may be an old lacunar infarct. 06/17 Brain MRI: There is a suspected remote lacunar infarct in the posterior aspect of the yue measuring up to about 11 mm in length and 7 mm in AP diameter. No recent infarct is identified on the diffusion weighted images. There is no mass effect or midline shift. No hydrocephalus. No intracranial edema identified. Pituitary is normal size. 06/17 Echo - normal ejection fraction, mild tricuspid regurgitation 06/16 CXR negative for malignancy, infection, or mass 06/20 Head MRA negative PT reconsulted for assessment: initially believed patient's unsteadiness to be related to alcohol withdrawal, noted a right tilt. On CIWA protocol and Rally pack, see below for plan B12 and folate elevated and patient denies numbness or tingling in the extremities, CK downtrending - no concern for vitamin deficiency or acute myopathy at this time Con't neurochecks and cardiac tele for now he is slowly improving with his ataxia but will benefit from rehab. he is deconditioned and has poor nutrition for some time period. ICD Codes: R27.0 - Ataxia, unspecified Status: Acute (2) Atrial fibrillation with RVR Plan: Echo w/normal ejection fracture and mild TR Metoprolol 25 BID for rate control Continued Cardizem 60mg po q6h for further control, will monitor rate closely. prior to leaving hospital needs change to long acting cardizem. on review, he has episodes of asymptomatic bradycardia. will change to long acting cardizem at 120 mg daily and continue his beta deepali. he may need further rate adjustment as an outpt. some people need pacemakers, etc Not chronically on anticoagulation. 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 CHADS-VASc score of 2 with a stroke risk of 2.2% per year and 2.9% risk of stroke/TIA/systemic embolism May require anticoagulation, neuro consulted. will need to have conversation with him as he is high risk for falls and bleeds if he continues to become intoxicated however, this is a decision that he can make as an outpt. he is still very unsteady on his feet at this point Will need follow-up w/cardiology after d/c ICD Codes: I48.91 - Unspecified atrial fibrillation Status: Acute (3) History of stroke Plan: Seen per MRI brain on 06/17 showed 11 mm x 7 mm lacunar infarct in the posterior aspect of the yue Lipid panel was normal, ASCVD risk is 7.5% 10 year risk of cardiovascular event , moderate intensity statin recommended, will leave decision to PCP upon discharge Continue aspirin 162 mg daily can start statin prior to d/c ICD Codes: Z86.73 - Personal history of transient ischemic attack (TIA), and cerebral infarction without residual deficits (4) Alcohol abuse Plan: CIWA scores improved, now not being scored since 4/6 Hx of seizures and likely DTs related to withdrawal ativan prn per CIWA protocol, discontinued scheduled Librium discontinued Continue Rally pack Consulted PT have addressed alcohol abstinence with him as quitting would be the best thing for his health. yesterday had a conversation where he stated he wanted to quit drinking so hopefully he can get help as an outpt as well ICD Codes: F10.10 - Alcohol abuse, uncomplicated Status: Acute (5) FEN Plan: Fluids: PO Electrolytes: continue to monitor, replete as needed Nutrition: Regular DVT ppx: SCDs, Lovenox Status: Acute Brief History Patient is a 62 y/o M w/a PMH of afib controlled on atenolol admitted for syncopal episodes. Patient states that earlier this morning, he had drank alcohol and went to get groceries. Was walking to his car with groceries and started feeling "off- balance" and fell. Denies tripping. No prodromal symptoms before fall, but patient states that once he fell, he was very weak and dizzy. He was unable to get up. States that he stay down for around 20 minutes. States that the rather people around watching him and called the [facility]. No one witnessed him with seizure-like activity. Patient denies tongue biting or urinary incontinence. 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 Per ER report, it was noted that patient went into A. fib with RVR. Was given Cardizem 20 mg 1, later followed by a dose of Cardizem 50 mg 1 when he remained tachycardic. On interview, patient denies palpitations or focal weakness, no recent bleeding. Patient hit his head. CT and the EGD was performed, shows no acute pathology. Patient states that he has no history of orthostatic hypotension, lightheadedness or syncope with coughing or micturition. No history of syncope in the past. States that he usually drinks all day, will usually drink 6-10 shots of vodka. Does not regularly follow up with a hair assistant for his A. fib. Was diagnosed about 5 years ago and underwent cardiac ablation. Since then , patient has been taking atenolol 50 mg. Patient was last hospitalized in 2014 for syncope, atrial fibrillation with RVR, rhabdomyolysis, and alcohol intoxication. He was admitted on a [place] act after his family accused him of aggressive behavior. Was discharged on Lopressor 50 mg twice a day. Patient states that this was changed to atenolol recently. CBC/BMP: 06/24/17 0711 Imaging Last Impressions Head Magnetic Resonance Angiography 06/20/17 0000 Signed Impressions: Service Date/Time: Tuesday, June 20, 2017 09:05 - CONCLUSION: 1. Negative examination. Homer Trevino MD Brain MRI 06/17/17 0000 Signed Impressions: Service Date/Time: Saturday, June 17, 2017 13:31 - CONCLUSION: 1. 11 mm x 7 mm lacunar infarct in the posterior aspect of the yue. No acute findings. Diogenes Aquino MD Head CT 06/16/17 1157 Signed Impressions: Service Date/Time: Friday, June 16, 2017 12:18 - CONCLUSION: 1 cm hypodensity in the central yue which may be an old lacunar infarct. This could be further characterized with MRI if clinically indicated.. Todd Verde MD Chest X-Ray 06/16/17 6966 Signed Impressions: Service Date/Time: Friday, June 16, 2017 12:43 - CONCLUSION: No acute disease. Mild scarring is again noted the right lung base. Carlito Head MD PE at Discharge CONSTITUTIONAL/GEN: Thin white male standing in room, NAD. conversant and pleasant EYES: EOMI. Conjunctiva normal. LUNGS: clear A-P, respiratory effort is normal. CARDIOVASCULAR: Irregular rhythm without murmur or gallop. GI/ABD: soft without masses, pain, and without organomegaly. NEURO: no to mild tremor seen today. he was carrying some water and had some tremor with that SKIN: color normal, no rashes noted. MUSC: Extremities are normal in appearance, no cyanosis or edema. Slight clubbing of fingernails noted. PSYCH/MENTAL STATUS: Alert and oriented x3 to person, place, and time. increased capacity to make his own decisions Hospital Course Mr. Wall is a 62-year-old white male with a past medical history of A. fib who presented to the ED on 06/[address] Head [address] revealed a hypodense lesion in the posterior yue that looked like an old ischemic infarct. He was also experiencing ataxia. During his hospitalization he underwent alcohol withdrawal and was transferred to the ICU. He was placed on CIWA protocol and received Ativan and Librium. After stabilization the patient was transferred back to the medical floor and began physical therapy. While hospitalized his atrial fibrillation medication was optimized with metoprolol and diltiazem. he was recommended to undergo rehabilitation by physical therapy and was discharged to a SNF on 06/27. Pt Condition on Discharge: Stable Discharge Disposition: Discharge to SNF Discharge Instructions DIET: Follow Instructions for: As Tolerated, No Restrictions Activities you can perform: Regular-No Restrictions Follow up Referrals: PCP Follow-up - 1 Week SNF/[facility]/HH with [facility] New Medications: Diltiazem CD 24 HR (Diltiazem CD 24 HR) 120 Mg Caper 120 MG PO DAILY, #30 CAP 0 Refills Metoprolol Tartrate (Metoprolol Tartrate) 25 Mg Tab 25 MG PO BID, #60 TAB Continued Medications: Aspirin DR (Aspirin 81) 81 Mg Tabdr 81 MG PO DAILY, TAB 0 Refills Discontinued Medications: Atenolol (Atenolol) 50 Mg Tab 50 MG PO DAILY for Blood Pressure Management, #30 TAB 0 Refills Tania Lawrence MD R1 Jun 28, 2017 09:51
== END 2017-06-27 17:10 | DRG 309 ==
LOC: NEPC 11:45 → NEDA 14:29 → N04A 17:50 → HIMW 06-18 13:50 → N04A 06-22 20:17
PROVIDERS: ADMIT Family Medicine; ATTEND Family Medicine
DX: I48.91 Unspecified atrial fibrillation (principal); F10.239 Alcohol dependence with withdrawal, unspecified; D69.59 Other secondary thrombocytopenia; R55 Syncope and collapse; R74.0 Nonspecific elevation of levels of transaminase and lactic acid dehydrogenase [LDH]; F10.229 Alcohol dependence with intoxication, unspecified; Y90.8 Blood alcohol level of 240 mg/100 ml or more; R27.0 Ataxia, unspecified; Z86.73 Personal history of transient ischemic attack (TIA), and cerebral infarction without residual deficits; R29.6 Repeated falls; Z78.1 Physical restraint status; D72.819 Decreased white blood cell count, unspecified; W01.0XXA Fall on same level from slipping, tripping and stumbling without subsequent striking against object, initial encounter
CPT/HCPCS: 70450; 70544; 70551; 71045; 80048; 80053; 80061; 80074; 80307; 81001; 82140; 82550; 82552; 82607; 82746; 83090; 83735; 83880; 83921; 84439; 84443; 84484; 85025; 85027; 85610; 85730; 86022; 93005; 93306; 95819; 96361; 96374; 96375; J1630; J1650; J1953; J2060; J2405; J3411; J3475; J3480; J7030